=== PATIENT | male | born 1940 | race Caucasian/White ===

== ENCOUNTER → 2020-05-31 12:11 | Outpatient (CLI) | payer MEDICARE, BC, SELFPAY ==
--- NOTE | 2020-05-31 12:14 | DI.RAD.S_ITS ---
PROCEDURE: XR KUB INDICATIONS: gross hematuria TECHNIQUE: One view of the abdomen acquired. COMPARISON: Outside Facility, RG, XR ABDOMEN 2V, 05/24/2020, 15:59. Outside Facility, RG, CT ABDOMEN/PELVIS WITHOUT CONTRAST, 05/17/2020, 15:12. FINDINGS: Surgical changes and devices: Incidentally noted IVC filter. Bowel: Bowel gas pattern is normal. Visualized solid organ contours appear normal in size. Few sub 5 mm calcifications projecting in the region of the right kidney, in keeping with nephrolithiasis. There is also a 1.3 cm calcific density projecting at the level of the L5 vertebral body on the right, in keeping with left ureteral calculus, which appears inferiorly migrated since the prior study from 05/24/20. Bones: Severe spondylosis and facet arthropathy. Severe right hip joint degeneration. There is also severe left hip joint degeneration with chronic osseous deformity and heterotopic ossification. IMPRESSION: Interval inferior migration of right distal ureteral calculus as above, since 05/24/20. Dictated by: Emerson Gaona M.D. on 05/31/2020 at 13:22 Approved by: Emerson Gaona M.D. on 05/31/2020 at 13:47
== END ==
PROVIDERS: Family Provider Student in an Organized Health Care Education/Training Program; PCP Family Medicine; Referring Provider Specialist; Visit Provider Specialist
DX: R31.0 Gross hematuria (principal); N20.1 Calculus of ureter; N40.1 Benign prostatic hyperplasia with lower urinary tract symptoms; N13.8 Other obstructive and reflux uropathy
CPT/HCPCS: 52000; 74018; 99215

== ENCOUNTER 2020-06-16 09:38 | Day surgery (SDC) | payer MEDICARE, BC, SELFPAY ==
[2020-06-16] VITALS (19 sets, daily range): BP systolic 95–140; BP diastolic 54–91; PULSE 76–98; RESP 16–22; TEMP 36.5–37.6; O2SAT 83–98; BMI 30.4
--- NOTE | 2020-06-16 | DI.RAD.S_ITS ---
PROCEDURE: XR KUB INDICATIONS: Bilateral ureteral calculi TECHNIQUE: One view of the abdomen acquired. COMPARISON: Outside Facility, RG, CT ABDOMEN/PELVIS WITHOUT CONTRAST, 05/17/2020, 15:12. [facility], CR, XR KUB, 05/31/2020, 12:17. FINDINGS: Surgical changes and devices: IVC filter. Bowel: Bowel gas pattern is normal. Soft tissues: Suspect persistent ureteral calculi bilaterally. Right measuring 1.1 cm and left measuring 0.9 cm. Nonobstructing calculus in the right kidney measuring 0.4 cm. No suspicious abdominal calcifications. Visualized solid organ contours appear normal in size. Bones: No suspicious bony lesions. Severe bilateral hip DJD. IMPRESSION: 1. Suspect bilateral persistent ureteral calculi. -Consider repeat CT KUB. -Renal ultrasound could also be utilized to evaluate for persistent hydronephrosis. 2. Nonobstructive bowel gas pattern. 3. Severe bilateral hip DJD. Dictated by: Rocky Perry M.D. on 06/16/2020 at 12:25 Approved by: Rocky Perry M.D. on 06/16/2020 at 12:35
--- NOTE | 2020-06-16 | DI.RAD.S_ITS ---
PROCEDURE: XR ABDOMEN 1V INDICATIONS: cysto TECHNIQUE: One view of the abdomen acquired. COMPARISON: None. FINDINGS: Intraoperative fluoroscopic image of abdomen shows a right-sided ureteral stent. IMPRESSION: Fluoro guidance was provided intraoperatively for right-sided ureteral stent placement. Dictated by: Dino Tamayo M.D. on 06/16/2020 at 16:36 Approved by: Dino Tamayo M.D. on 06/16/2020 at 16:37
[2020-06-16] MEDS: LACTATED RINGERS 1,000 ML 42 ML IV ×2 (10:13→14:20)
--- NOTE | 2020-06-16 11:55 | PM.PREOP ---
Pre-operative Note Interval Note History & Physical reviewed/Exam performed by Physician: Yes Changes to H&P: No
--- NOTE | 2020-06-16 12:35 | SUR.OPER ---
Lithotomy on padded OR bed, head on pillow, arms secured on padded arm boards at <90 degrees abduction. Legs secured in padded yellow fins stirrups.
[2020-06-16] MEDS: CEFAZOLIN 2 GM/100 ML FROZ.PIGGY IV (12:59)
[2020-06-16] MEDS: IOPAMIDOL 15 ML VIAL INJ (13:44)
--- NOTE | 2020-06-16 15:06 | PM.OP.1 ---
Operative Date/Time/Diagnoses Date of procedure: 06/16/20 Time of procedure: 15:06 Pre-op diagnosis: 1. Bilateral, obstructing large ureteral calculi 2. Gross hematuria Post-op diagnosis: same Procedure & Clinicians Procedure: 1. Cystoscopy/left ureteral stone extraction 2. Cystoscopy/placement right ureteral stent (8 Martiniquais by 22-32). Same procedure as scheduled: No (See operative findings and report) Indications: 1. Bilateral obstructing large ureteral calculi. 2. Gross hematuria. Surgeon: John Perez Click Yes if Unassisted: Yes Anesthesia Type: General Operative Notes Findings: 1. Urethra-normal caliber without lesion or stricture. 2. External sphincter- coapted with normal overlying urothelium. 3. Caqmfsei-5-1.5 cm length with moderately obstructing lateral lobe hyperplasia and elevated median bar. 4. Bladder-2+ trabeculation. Normal ureteral orifices bilaterally. 5. Left whpgsj-xhws-nluux obstructing stone at the juncture of the proximal and middle 1/3. Proximal to the stone the ureter was extremely tortuous. During the effort to negotiate a guidewire beyond the calculus, the stone effectively was disrupted and the fragments pass once the high-grade obstruction was relieved. 6. Right dqssro-wska-lkzwt obstructing, large, UPJ calculus. Again the tortuosity of the ureter was present. Due to this the flexible ureteral scope could not be advanced over the wire due to the severity of radius of the tortuosity. Therefore a large ureteral stent was positioned to relieve obstruction and tortuosity since visual access to the calculus could not be achieved for laser lithotripsy. 7. Of note : Patient positioning was extremely limited due to inability to flex his left knee and hip. The situation was remedied by positioning the left lower extremity in a more less straight position due to extremely limited positioning lower extremity laterally and anteriorly. Closure Type: not applicable Applied: other (Eight Martiniquais by 22-32 cm multi-length ureteral stent.) Estimated Blood Loss (mL): 5 Blood products transfused: none Tourniquet time (min): 0 Procedure in detail: Patient was positioned supine and administered general anesthesia. He was then repositioned in semi lithotomy and the lower abdomen, genitalia, and groin were prepped and draped in sterile fashion. The 22 [place] panendoscope was then passed lower urinary tract with the findings as described above. A 0.35 hybrid guidewire was then advanced through the working port of the endoscope and advanced into the left upper collecting system under direct fluoroscopic guidance. The tip of the wire could not be advanced beyond the calculus and tortuosity proximally. Next, a 15 [place] by 6 cm balloon dilating catheter was advanced over the hybrid guidewire and across the left ureterovesical junction. The balloon was then inflated to 18 atmospheres for 5 minutes. The balloon was then deflated and backloaded off the wire. The semi rigid ureteral scope was then advanced in lower any tract and then into the left ureter and advanced proximally. In the vicinity just distal to the stone and high-grade tortuosity a 2nd hybrid guidewire was advanced through the semi-rigid ureteral scope and under direct visualization high persistently tried to find a pathway between the stone in the ureteral wall. Is evidence of not only high-grade obstruction but low longstanding obstruction with some mucosal growth over the cyst portion of the stone. Finally, the wire was successfully advanced proximally with a generous coil in intrarenal collecting system. At this juncture multiple fragments of stone were disrupted and readily passed distally with relief of the obstruction. Ureteral scope was then advanced into the left renal pelvis which was dilated and hyperemic. Upon careful withdrawal of the semi rigid ureteral scope under high flow rate all significant stone fragments were cleared from the left ureter. Intraoperative decision to not place a stent was made at that time. Original operative plan was to laser the stone. But, with the described events above, there was no need for laser lithotripsy. Next a 0.35 hybrid guidewire was advanced through the panendoscope into the right collecting system and advanced proximally. Only with extreme difficulty and a great deal of persistence and patience was I able to get the wire beyond the stone and the tortuosity of the ureter and create generous coil within the intrarenal collecting system. The 15 [place]iquais balloon dilating catheter was then advanced over the wire and positioned across the right ureteral vesicle junction and again the balloon was inflated to 18 atmospheres and held for 5 minutes. The balloon was then deflated and the balloon dilator was backloaded off the wire. Next, a dual lumen ureteral access sheath with his answered over this wire. Through the accessory port a 2nd hybrid guidewire was advanced through. Again, great patience and persistence was required, but the wire could only be advanced a short distance proximal to the index stone and again with a tight radius tortuosity of the ureter. At this point the dual-lumen ureteral access sheath with backloaded off both wires. The 1st wire was secured to the drape. Over the 2nd wire the flexible ureteral scope was advanced under direct and fluoroscopic guidance up to the level of the tortuous segment adjacent to the calculus. However, the radius of the ureteral course did not allow advancement of the flexible ureteral scope any further. The stone could not be visualized although fluoroscopically were in close distal proximity. Decision was made at that time to position a large caliber stent in the system to relieve obstruction, decompress the proximal ureter, and straight in the ureteral course. The flexible ureteral scope was then removed with the associated guidewire. Next, the original hybrid wire was backloaded into the panendoscope and the panendoscope was then advanced in the lower urinary tract. Under direct and fluoroscopic guidance an 8 [place] by 22-32 cm multi-length stent was advanced with great difficulty over the wire and eventually beyond the stone. The radiographic course of the stent indicated straightening of the ureteral course. NO RETRIEVAL LINE WAS LEFT ATTACHED. The bladder was then drained completely and all instrumentation was removed. The patient was then repositioned supine, awakened, and transferred to [facility] for transport to PACU. Complications: none Post-operative Condition: stable Disposition: PACU Plan for aftercare: Discharge home
[2020-06-16] MEDS: ALBUTEROL 2.5 MG/3 ML NEB (ADULT) INH ×2 (16:03→16:08)
[2020-06-29 10:19] LABS: Stone Analysis Source URETER
[2020-06-29 10:20] LABS: Size TOO SMALL TO MEASURE
== END 2020-06-16 17:05 | disposition home or self-care (01) ==
PROVIDERS: Family Provider Student in an Organized Health Care Education/Training Program; PCP Family Medicine; Referring Provider Specialist; Visit Provider Specialist
PROC: (CPT 52332; principal; 2020-06-16 10:30)
DX: N20.1 Calculus of ureter (principal); R31.0 Gross hematuria; N40.1 Benign prostatic hyperplasia with lower urinary tract symptoms; I50.9 Heart failure, unspecified; I51.9 Heart disease, unspecified; I25.2 Old myocardial infarction; E78.00 Pure hypercholesterolemia, unspecified
CPT/HCPCS: 52332; 52345; 74018; 76000; 82365; J0690; J1100; J2405; J2704; J3010; J7613

== ENCOUNTER → 2021-07-17 10:44 | Outpatient (CLI) | payer MEDICARE, BC, SELFPAY ==
--- NOTE | 2021-07-17 10:47 | DI.RAD.S_ITS ---
PROCEDURE: XR KUB INDICATIONS: stone TECHNIQUE: One view of the abdomen acquired. COMPARISON: [facility], RG, CT ABDOMEN/PELVIS WITHOUT CONTRAST, 03/05/2021, 13:33. [facility], RG, XR ABDOMEN 1V, 07/13/2021, 14:11. [facility], CR, XR KUB, 06/16/2020, 11:55. FINDINGS: Surgical changes and devices: Right Double-J ureteral stent is redemonstrated. Bowel: Bowel gas pattern is normal. Soft tissues: A 1.8 cm radiopacity is projected over the right upper quadrant which may represent a nonobstructing renal calculus. A subtle 6 mm radiopacity is present adjacent to the distal right ureteral stent which may represent a distal ureteral calculus. No other suspicious soft tissue calcifications. 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 IMPRESSION: 1. Questionable distal right ureterolithiasis and nonobstructing right nephrolithiasis. Dictated by: Claire Kohler M.D. on 07/17/2021 at 11:15 Approved by: Claire Kohler M.D. on 07/17/2021 at 11:18
== END ==
PROVIDERS: Family Provider Student in an Organized Health Care Education/Training Program; PCP Family Medicine; Referring Provider Specialist; Visit Provider Specialist
DX: N20.2 Calculus of kidney with calculus of ureter (principal); N23 Unspecified renal colic; R30.0 Dysuria; Z20.822 Contact with and (suspected) exposure to COVID-19; Z96.0 Presence of urogenital implants
CPT/HCPCS: 74018; 81001; 87077; 87086; 87186; 87635; 99215

== ENCOUNTER → 2021-07-17 12:18 | Outpatient (CLI) | payer MEDICARE, BC, SELFPAY ==
[2021-07-17 13:13] LABS: COVID19 -Nasal RAPID Negative (Negative)
[2021-07-17 13:13] LABS: Appearance Urine UA CLOUDY; Bilirubin Urine UA NEGATIVE (NEGATIVE); Color Urine UA BROWN; Glucose Urine UA TRACE g/dL (Negative); Ketones Urine UA TRACE (NEGATIVE); Leukocyte Esterase Urine UA 2+ (NEGATIVE); Nitrite Urine UA NEGATIVE (Negative); Occult Blood Urine UA 3+ (Negative); Protein Urine UA 3+ (Negative); Specific Gravity Urine UA 1.025 (1.000-1.035); Urobilinogen Urine UA 0.2 E.U./dL (0.2); pH Urine UA 5.5 (4.5-8.0)
[2021-07-17 13:18] LABS: Bacteria Urine Occasional (0-1); Culture Indicated Urine Specimen Cultured; RBC Urine 10-30/HPF (0-5/HPF); WBC Urine 5-10/HPF (0-5/HPF)
== END ==
PROVIDERS: Family Provider Student in an Organized Health Care Education/Training Program; PCP Family Medicine; Visit Provider Specialist
DX: R30.0 Dysuria (principal); Z20.822 Contact with and (suspected) exposure to COVID-19
CPT/HCPCS: 81001; 87086; 87635

== ENCOUNTER 2021-07-20 07:45 | Day surgery (SDC) | payer MEDICARE, BC, SELFPAY ==
[2021-07-20] VITALS (10 sets, daily range): BP systolic 105–133; BP diastolic 57–88; PULSE 75–112; RESP 12–20; TEMP 36.3–36.8; O2SAT 93–97; BMI 29.5
--- NOTE | 2021-07-20 | DI.RAD.S_ITS ---
PROCEDURE: XR KUB INDICATIONS: Left ureteral calculi TECHNIQUE: One view of the abdomen acquired. COMPARISON: [facility], RG, CT ABDOMEN/PELVIS WITHOUT CONTRAST, 07/09/2021, 15:08. [facility], CR, XR KUB, 07/17/2021, 10:51. FINDINGS: Surgical changes and devices: A right ureteral stent is seen in stable position. An IVC filter is noted. Sternotomy wires are partially imaged. Bowel: Bowel gas pattern is normal. Soft tissues: 18 mm calcification again seen projecting over the right kidney in stable position. Previously seen possible distal ureteral calculus is not redemonstrated. Visualized solid organ contours appear normal in size. Bones: No suspicious bony lesions. Multilevel degenerative changes in the spine. Severe left hip degenerative changes are partially imaged. IMPRESSION: Stable right ureteral stent. Stable right renal calculus. No definite ureteral calculus seen. Dictated by: Awais Neff M.D. on 07/20/2021 at 9:16 Approved by: Awais Neff M.D. on 07/20/2021 at 9:19
--- NOTE | 2021-07-20 08:36 | PM.PREOP ---
Pre-operative Note COVID-19 Criteria for continued procedure: Expected advancement of disease process, Possibility delay results in more complex future surgery or treatment, Increased loss of function, Continuing or worsening of significant or severe pain, Deterioration of the patient's condition or overall health, Delay expected to result in less-positive ultimate med/surg outcome and Non-surgical alternatives not available or appropriate per current SOC Interval Note History & Physical reviewed/Exam performed by Physician: Yes Changes to H&P: No
[2021-07-20] MEDS: LACTATED RINGERS 1,000 ML 42 ML IV (08:41)
--- NOTE | 2021-07-20 09:08 | SUR.PREOP ---
Pt sister Stefania reports that patient had diarrhea last night. She tried to clean him up but didn't have time to give him shower. Luana care done. Scant amt of stool. Small amt of redness between the butt cheeks. Barrier cream obtained and Emma Vigil in OR will apply after surgery. teaching done with sister on preventing skin break down.
[2021-07-20] MEDS: CEFAZOLIN 2 GM/20 ML SYRINGE IV (09:15)
--- NOTE | 2021-07-20 09:48 | SUR.OPER ---
Lithotomy on padded OR bed, head on pillow, arms secured on padded arm boards at <90 degrees abduction. Legs secured in padded yellow fins stirrups. Gel pads placed under bilateral wrists.
[2021-07-20] MEDS: IOPAMIDOL 50 ML VIAL INJ (10:00)
--- NOTE | 2021-07-20 10:50 | P.OP_ITS ---
Operative Date/Time/Diagnoses Date of procedure: 07/20/21 Time of procedure: 10:50 Pre-op diagnosis: 1. Retained right ureteral stent. 2. Right renal calculus. 3. Obstructing mid left ureteral calculus. 4. Intractable left renal colic. Procedure & Clinicians Procedure: 1. Cystoscopy/bilateral retrograde pyelogram. 2. Cystoscopy/placement left ureteral stent (8 [place] by 22-32 cm multi-length). 3. Cystoscopy/placement right ureteral stent (6 [place] by 22-32 cm multi- length). 4. Cystoscopy/failed attempts to remove retained right ureteral stent. Same procedure as scheduled: No (Retained right ureteral stent could not be removed due to encrustation. ) Indications: 1. Retained right ureteral stent. 2. Right renal calculus. 3. Obstructing mid left ureteral calculus. 4. Intractable left renal colic. Surgeon: John Perez Click Yes if Unassisted: Yes Anesthesia Type: General Operative Notes Findings: 1. Urethra-normal caliber without annular stricture or lesion. 2. External sphincter-coapted with normal overlying urothelium. 3. Prostate-4+ cm length with moderate lateral lobe hyperplasia. 4. Bladder-encrusted appropriately positioned, right ureteral stent. Normal appearing left ureteral orifice. Following negotiation of the high-grade obstructing mid left ureteral calculus, and obstructive, hemorrhagic efflux was seen effluxing from the left ureteral orifice. 5. The retained and encrusted right ureteral orifice could not be successfully removed from the collecting system. The proximal coil would not straighten at the contour of the right ureteral pelvic junction to remove safely. See saved intraoperative imaging. Closure Type: not applicable Specimen(s): none sent Applied: other (1. Six [place] by 22-32 cm multi length right ureteral stent. 2. 8 [place] by 22-32 cm left multi-length stent. ) Estimated Blood Loss (mL): 0 Blood products transfused: none Procedure in detail: Patient was positioned supine was administered general anesthesia. He was then repositioned semi lithotomy and the lower abdomen, genitalia, and groin were then prepped and draped in sterile fashion. The 22 [place] Leonean panendoscope was then passed lower urinary tract with the findings as described above. A 0.35 hybrid guidewire was advanced through the panendoscope advanced left collecting system under direct and fluoroscopic guidance. The wire would not pass easily beyond the high-grade obstructing left mid ureteral calculus. A 5 [place] Leonean pollock catheter was then advanced over the hybrid guidewire to the level of the calculus a guidewire was clear of the 5 [place]an pollock catheter. A retrograde pyelogram then performed with findings of a proximal dilated and torturous ureteral course with sharp right angle deflections immediately and then straining itself in less tortuous but more dilated proximally. A 0.35 angle tip Glidewire, eventually the wire was negotiated proximal to the calculus and advanced into the collecting system successfully. The open-ended catheter was then advanced over the wire under direct fluoroscopic guidance. Movement, or passage by the calculus was ?sounded? by the digital pre press operator. Imaging demonstrated straightened course of the ureter. The 5 [place] open-ended catheter was then backloaded off the GL UDAY wire next, an 8 [place] by 22-32 cm multilink stent was selected and advanced over the Glidewire under direct and fluoroscopic guidance. It was successfully positioned in the left collecting system. NO RETRIEVAL LINE WAS LEFT ATTACHED. Next, the flexible foreign body grasper was passed through the 22 [place] panendoscope and the distal end of the right retained ureteral stent was engaged in then withdrawn under fluoroscopic guidance. One of the proximal coils straightened readily as the stent was withdrawn distally. However the proximal most coil remained coiled and would not straighten readily to allow safe removal of the retained right ureteral stent. A 0.35 hybrid was then advanced through the panendoscope and then passed alongside the encrusted right ureteral stent and then was advanced proximally under direct and fluoroscopic guidance with significant difficulty. Again, a 5 [place] Leone[place] open-ended catheter was required for successful positioning the wire within the right collecting system. It should be mentioned, when advancing the hays endoscope proximally into the lower urinary tract on this occasion she encrusted right ureteral stent that had been kym sing the external sphincter was pushed back redundantly into the bladder proper. Now, a 6 [place] by 22-32 cm multi length stent was selected. This was then advanced over the hybrid guidewire under direct and fluoroscopic guidance and was positioned satisfactorily in the right collecting system. Reference intraoperative fluoroscopic images were retained. The bladder was then drained and all instrumentation was removed. The patient was then repositioned in supine, was awakened, and then was transferred to a gurney and then transported to recovery room. Complications: none Post-operative Condition: stable Disposition: PACU Plan for aftercare: Discharge home.
[2021-07-20 11:09] LABS: Appearance Urine UA CLOUDY; Bilirubin Urine UA NEGATIVE (NEGATIVE); Color Urine UA ORANGE; Glucose Urine UA NEGATIVE (Negative); Ketones Urine UA NEGATIVE (NEGATIVE); Leukocyte Esterase Urine UA 2+ (NEGATIVE); Nitrite Urine UA NEGATIVE (Negative); Occult Blood Urine UA 3+ (Negative); Protein Urine UA 2+ (Negative); Urobilinogen Urine UA 0.2 E.U./dL (0.2); pH Urine UA 5.5 (4.5-8.0)
[2021-07-20 11:45] LABS: RBC Urine >100/HPF (0-5/HPF); WBC Urine 10-30/HPF (0-5/HPF)
[2021-07-20 11:46] LABS: Bacteria Urine Many (>30); Calcium Oxalate Crystals Urine Few; Culture Indicated Urine Specimen Cultured
[2021-07-20] MEDS: SODIUM CHLORIDE 0.9% IV (12:04)
[2021-07-20] MEDS: GENTAMICIN IV (12:04)
[2021-07-20] MEDS: ACETAMINOPHEN 325 MG TABLET 650 MG PO (12:12)
--- NOTE | 2021-07-20 12:38 | SUR.PHASEII ---
Gentamycin infusing without difficulty. Patient states that he needs to void. Small amount of blood noted at meatus. Urinal provided. Unable to void at this time. Bladder scan results 188.
--- NOTE | 2021-07-20 13:49 | SUR.PHASEII ---
Dr Perez notified of blood clots and gerry hematuria. Post void residual 182. Dr Perez states patient may be discharged home. at bedside and supportive.
--- NOTE | 2021-07-20 15:38 | SUR.PHASEII ---
Sent patient home with sister and family member in stable condition. Dry brief in place, denies any pain, no hematuria noted at this time.
== END 2021-07-20 15:39 | disposition home or self-care (01) ==
PROVIDERS: Family Provider Student in an Organized Health Care Education/Training Program; PCP Family Medicine; Referring Provider Specialist; Visit Provider Specialist
PROC: (CPT 52332; principal; 2021-07-20 09:00)
DX: N20.2 Calculus of kidney with calculus of ureter (principal); T83.89XA Other specified complication of genitourinary prosthetic devices, implants and grafts, initial encounter; N40.1 Benign prostatic hyperplasia with lower urinary tract symptoms; N13.9 Obstructive and reflux uropathy, unspecified; I50.9 Heart failure, unspecified; I25.10 Atherosclerotic heart disease of native coronary artery without angina pectoris; E78.5 Hyperlipidemia, unspecified; Z95.5 Presence of coronary angioplasty implant and graft; Z87.891 Personal history of nicotine dependence
CPT/HCPCS: 52332; 74018; 76000; 81001; 82962; 87086; J0690; J1100; J2405; J2704; J3010

== ENCOUNTER 2021-08-28 10:00 | Observation (INO) | payer MEDICARE, BC, SELFPAY ==
[2021-08-27] VITALS (17 sets, daily range): BP systolic 93–121; BP diastolic 47–81; PULSE 7–108; RESP 8–19; TEMP 35.7–36.9; O2SAT 97–99; BMI 29.5
--- NOTE | 2021-08-27 | DI.RAD.S_ITS ---
PROCEDURE: XR KUB INDICATIONS: Right nephrolithiasis TECHNIQUE: One view of the abdomen acquired. COMPARISON: [facility], RG, CT ABDOMEN/PELVIS WITHOUT CONTRAST, 08/10/2021, 15:14. [facility], CR, XR KUB, 07/20/2021, 7:38. FINDINGS: Surgical changes and devices: Bilateral ureteral stents. Second right ureteral stent has been placed in the interval since prior exams. Stones projecting over the lower poles of the renal shadows bilaterally unchanged compared to prior exams. Bowel: Bowel gas pattern is normal. Soft tissues: No suspicious abdominal calcifications. Visualized solid organ contours appear normal in size. Bones: No suspicious bony lesions. IMPRESSION: Bilateral renal stones. Bilateral ureteral stents . Dictated by: Antoinette Preciado MD, PhD on 08/27/2021 at 11:22 Approved by: Antoinette Preciado MD, PhD on 08/27/2021 at 11:23
[2021-08-27] MEDS: LACTATED RINGERS 1,000 ML 42 ML IV ×2 (08:34→14:43)
--- NOTE | 2021-08-27 09:06 | P.OP.PRE_ITS ---
Pre-operative Note COVID-19 Criteria for continued procedure: Expected advancement of disease process, Possibility delay results in more complex future surgery or treatment, Increased loss of function, Deterioration of the patient's condition or overall health, Delay expected to result in less-positive ultimate med/surg outcome and Non- surgical alternatives not available or appropriate per current SOC Interval Note History & Physical reviewed/Exam performed by Physician: Yes Changes to H&P: Yes H&P completed within 30 days and has changed as indicated here:: 1. I explained rationale and recommendation to leave left ureteral stent indwelling today. Goal of today's interventional will be to treat the encrustations and calcifications of the long overdue indwelling right ureteral stent with removal.
[2021-08-27] MEDS: CEFAZOLIN 2 GM/20 ML SYRINGE IV (09:41)
[2021-08-27] MEDS: ACETAMINOPHEN IV 1,000 MG/100 ML VIAL 400 MG IV (10:39)
--- NOTE | 2021-08-27 10:45 | SUR.OPER ---
Patient in semi-lithotomy on ESWL bed and stirrup attachments. Bilateral arms tucked at side with blanket, gel pads placed under bilateral arms. Pillow to support head.
--- NOTE | 2021-08-27 12:00 | SUR.OPER ---
Patient repositioning performed several times to perform ESWL. Additional staff called into room upon each reposition. Proper padding in place to lower legs in stirrups and secured into place. Arms remain tucked at sides with gel padding to each arm and rolled towel placed into hands.
[2021-08-27] MEDS: BELLADONNA/OPIUM SUPPOSITORIES 1 EACH PR (12:23)
--- NOTE | 2021-08-27 13:08 | PM.OP.1 ---
Operative Date/Time/Diagnoses Date of procedure: 08/27/21 Time of procedure: 12:40 Pre-op diagnosis: 1. Encrusted retained right ureteral stent. 2. Bilateral nephrolithiasis. 3. Bilateral ureteral stents. Post-op diagnosis: same Procedure & Clinicians Procedure: 1. Right extracorporeal shockwave lithotripsy of encrusted right ureteral stent from right ureteropelvic junction to right ureterovesical junction (4000 shocks times maximal power level 8.0). 2. Cystoscopy/attempted right ureteral stent removal (complicated. Code modifier for length the procedure greater than 50% of expected should apply). Same procedure as scheduled: No Indications: Failure to remove encrusted and retained right ureteral stent. Surgeon: John Perez Click Yes if Unassisted: Yes Operative Notes Findings: 1. Urethra-single wide caliber mid bulbar urethral stricture, otherwise no annular stricture or lesion. 2. External sphincter coapted with normal overlying urothelium. 3. Prostate-4+ cm length with elevated median bar. Bladder-1 to 2+ trabeculation. Mild erythema and edema surrounding both ureteral orifices a association with intact retained ureteral stents. Closure Type: not applicable Specimen(s): none sent Applied: catheter (Twenty Dominican Curyung tip catheter.) Estimated Blood Loss (mL): 5 Blood products transfused: none Procedure in detail: Patient was positioned supine was administered general anesthesia. He was then repositioned in semi lithotomy on the lithotripsy treatment table and the lower abdomen, genitalia, and groin were then prepped and draped in sterile fashion. The 22 Dominican pannus closes passed the lower urinary tract with the findings as described above. A rat-tooth grasper was then used to reposition the left ureteral stent slightly distally based on preoperative CT imaging. Next, the long-term, encrusted right ureteral stent was engaged in the red tip grasper was withdrawn until resistance was met. The stent was then released. Next a and trapped ureteral stent loop was selected and this was positioned over the distal loop of the index stent. The hope was that this would allow periodic recheck of ureteral stent mobility versus continued retention by applying gentle traction through the treatment course. At the completion of lithotripsy again attempt was made withdrawal the stent which was unsuccessful due to undue resistance. Now the entrapped loop was widened and unfortunately could not be manipulated to get it off the ureteral stent coil. Endoscopic sue were then employed and attempt to cut the entrapped wire loop, which was unsuccessful. The endoscopic sue were then used to attempt to transect the ureteral stent adjacent to the and trapped loop. This was also unsuccessful. Decision was made at that time to abort the procedure. A 5 Dominican pollock catheter was advanced over the and trapped loop following removal of the device handle a 20 Dominican Curyung tip catheter was then selected and the Stratford catheter with and trapped wire within it passed to the through the lumen of the Curyung tip catheter sweats to internalize the system. Curyung tip catheter was then advanced in the bladder. The balloon was inflated 10 cc and placed to gravity drainage. Patient was then awakened, transferred to [facility], then transfer recovery in stable condition. Complications: none Post-operative Condition: stable Disposition: PACU Plan for aftercare: 1. Discharge home. 2. Referral [facility] for percutaneous extraction encrusted and retained right ureteral stent.
--- NOTE | 2021-08-27 13:19 | SUR.PHASEI ---
Pt stable, to go home with Ratliff in place. Sister called to come in to have education at bedside in OPD for ratliff care. Penis and groin with reddened skin, very thin and friable. Right buttock with hickey type site from lithotrypsy- Dr Perez aware. Ratliff draining pink tinged urine- clear Pt adorable. A&Ox3, slightly hard of hearing, but answering questions appropriately. Drinking apple juice without incident.
--- NOTE | 2021-08-27 13:27 | SUR.PHASEII ---
Sister at bedside, Dr. Perez talking with them regarding outcome and recommendation for follow-up to [facility]
[2021-08-27] MEDS: OXYCODONE IR 5 MG TABLET PO (13:44)
--- NOTE | 2021-08-27 14:44 | SUR.PHASEII ---
~[address] Perez - the patient's sister states that she is not comfortable taking him home - that he is not like his normal self and that there are stairs for him to navigate into the home, that she thinks he is not capable of managing. She feels that he needs to stay overnight. Spoke with Dr. Perez. He will write admission orders.
--- NOTE | 2021-08-27 15:06 | SUR.PHASEII ---
Continue to wait for OBS orders to transfer patient to Acute Care.
--- NOTE | 2021-08-27 15:13 | SUR.PHASEII ---
Raymundoloida jaramillo on for shivering approx 1400. Patient much more comfortable, shivering has stopped.
--- NOTE | 2021-08-27 16:20 | SUR.PHASEII ---
1554 To room 223, transferred into the bed with multiple staff members. Clothing bag to the room, Red, weepy area on left upper arm where the BP cuff had been. Pt skin warm to touch, no diaphoresis. SCD's on, Katz patent, urine remains red without clots, string/wire visable in the tubine. No questions from the staff.
[2021-08-27] MEDS: LACTATED RINGERS 500 ML 25 ML IV (16:47)
--- NOTE | 2021-08-27 18:15 | P.HP_ITS ---
History of Present Illness History of Present Illness Chief complaint: [facility] Narrative: THIS IS A PLEASANTLY DEMENTED 81-YEAR-OLD MALE ADMITTED TO THE HOSPITAL FOR STENT REMOVAL. PATIENT IS UNABLE TO PROVIDE A RELIABLE HISTORY OR REVIEW OF SYSTEM DUE TO SIGNIFICANT DEMENTIA MOST OF THE HISTORY WAS TAKEN FROM SURGICAL NOTE WELL NURSING REPORT. PATIENT IS WITH HIS SISTER REPORTEDLY. HOWEVER THIS STORY IS THAT HE HAD A LEFT STENT PLACEMENT ON . DUE TO AND OBSTRUCTIVE KIDNEY STONE. THERE HAS BEEN NO COMPLICATIONS OBSERVED FROM THAT PROCEDURE HOWEVER IT WAS NOTED THAT PATIENT HAS ALSO HAD A STENT PLACED ON 06/16/2020. THIS WAS DONE ON THE RIGHT AGAIN FOR DIFFERENT KIDNEY STONE. UNFORTUNATELY PATIENT DID NOT HAVE ANY APPROPRIATE FOLLOW-UP. AND THE STENT HAD BEEN IN PLACE SINCE THEN PATIENT WAS BROUGHT BACK TO THE HOSPITAL TODAY AND THE SURGICAL TEAM ATTEMPTED TO REMOVE THE STENT. MULTIPLE MODALITIES WILL USE AND ALL ATTEMPTS HAVE FAILED SO FAR PATIENT HAS BEEN ADMITTED AND AT THE SURGICAL TEAM ATTEMPTING TO REACH OUT TO A TERTIARY FACILITY FOR TRANSFER PER THE SURGICAL TEAM, PATIENT WILL NEED A PERCUTANEOUS APPROACH TO REMOVE THE STENT ON THE RIGHT. HOSPITALIST HAS BEEN CALLED TO MANAGE PATIENT MEDICALLY WHILE ATTEMPTING TO TRANSFER. 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) Hypercholesterolemia Left ureteral calculus MRSA (methicillin resistant Staphylococcus aureus) Renal calculus, right Renal colic on left side Retained ureteral stent Surgical History (Updated 08/22/21 @ 14:34 by Sandi Kellogg RN) H/O circumcision H/O vasectomy History of cataract extraction History of coronary artery stent placement History of incision and drainage History of knee replacement (1996) History of knee replacement (1999) History of urologic surgery (06/16/20) Hx of CABG (2010) Hx of cystoscopy (07/20/21) Family & Social History Family History Mother Cancer Sister Cancer Father Coronary artery disease Social History: household members family Safety & Behavioral: Feels Safe in Current Yes Environment Been Physically Hurt or No Threatened By a Person Tobacco & Substance use: Tobacco type cigarettes Smoking Status Former smoker alcohol intake never alcohol intake frequency holiday/special occasion Substance Use Type does not use Meds Home Medications and Allergies Home Medications Medication Instructions Recorded Confirmed Type aspirin 81 mg chewable tablet 81 mg PO DAILY 03/16/20 08/27/21 History atorvastatin 20 mg tablet (Lipitor) 20 mg PO DAILY 03/16/20 08/27/21 History calcium carbonate 500 mg-vitamin 1 tab PO DAILY 03/16/20 08/27/21 History D3 15 mcg (600 unit) tablet donepezil 10 mg tablet 10 mg PO QPM 03/16/20 08/27/21 History fluticasone propionate 230 2 puff INHALATION BID PRN 03/16/20 08/27/21 History mcg-salmeterol 21 mcg/actuation HFA inhaler (Advair HFA) multivitamin (Daily Multi-Vitamin) 1 tab PO DAILY 03/16/20 08/27/21 History tamsulosin 0.4 mg capsule (Flomax) 0.8 mg PO BEDTIME 03/16/20 08/27/21 History metoprolol tartrate 50 mg tablet 12.5 mg PO BID 06/16/20 08/27/21 History oxycodone 5 mg tablet 5 mg PO Q4H PRN #10 tab 08/27/21 Rx Allergies Allergy/AdvReac Type Severity Reaction Status Date / Time lisinopril AdvReac Mild Light-heade Verified 08/27/21 08:18 d/Dizzy shellfish derived AdvReac Mild Nausea & Verified 08/27/21 08:18 Sweat Review of Systems Review of Systems Narrative: UNABLE TO OBTAIN DUE TO MENTATION Exam Vital Signs (past 8 hours): - 08/27/21 12:40 08/27/21 12:45 08/27/21 12:50 Temperature 96.2 F L Pulse Rate 66 67 108 H Respiratory Rate 8 L 8 L 8 L Blood Pressure 109/51 L 111/65 103/68 Pulse Oximetry 97 97 97 08/27/21 12:55 08/27/21 13:05 08/27/21 13:16 Temperature Pulse Rate 80 7 L 81 Respiratory Rate 12 15 16 Blood Pressure 104/68 104/49 L 116/47 L Pulse Oximetry 97 97 98 08/27/21 13:17 08/27/21 14:00 08/27/21 15:01 Temperature 96.5 F L 96.5 F L 96.4 F L Pulse Rate 69 65 60 Respiratory Rate 15 16 16 Blood Pressure 109/52 L 105/63 93/49 L Pulse Oximetry 97 98 97 08/27/21 15:43 08/27/21 16:05 08/27/21 16:41 Temperature 98.5 F 96.9 F L 97.6 F Pulse Rate 73 84 66 Respiratory Rate 16 14 14 Blood Pressure 95/60 109/81 105/55 L Pulse Oximetry 97 98 99 08/27/21 17:16 Temperature 96.9 F L Pulse Rate 75 Respiratory Rate 14 Blood Pressure 111/60 Pulse Oximetry 97 Oxygen Delivery Method Room Air Oxygen Flow Rate 0 Narrative Exam Narrative: NO ACUTE DISTRESS. PLEASANTLY DEMENTED VITAL SIGNS STABLE HEAD ATRAUMATIC NORMOCEPHALIC NECK : SUPPLE WITHOUT ADENOPATHY NO CAROTID BRUITS . NO LAD EYE: EOMI, PERRLA, NORMAL CONJUNCTIVA; NO JAUNDICE CHEST: REGULAR RATE. NO RUBS. PMI IS NON DISPLACED. NO MURMURS; NORMAL S1- S2 PULMONARY: MILD BIBASILAR CRACKLES NOTED; NO INCREASED DULLNESS TO PERCUSSION. NO WHEEZING. ABDOMEN: SOFT. NONTENDER. NONDISTENDED. BOWEL SOUNDS ARE PRESENT IN ALL [address] MONTO[address] CAT[address] PL[address] EXTREMITIES: 2+ POLYSOMNOGRAPHER BLE EDEMA.. NO CYANOSIS CLUBBING NOTED. NEURO: CRANIAL NERVES 2-12 GROSSLY INTACT. NO FOCAL NEUROLOGICAL DEFICIT NOTED. MSK: NORMAL RANGE OF MOTION FOR AGE. NO JOINT EFFUSION. SKIN: AGE ASSOCIATED POOR SKIN TURGOR; NO ECCHYMOSIS. NO LESION. GOOD TURGOR.; NO RASHES : NORMAL EXTERNAL GENITALIA. MONTOYA CATHETER IN PLACE. HEMATURIA PRECEDED PSYCH : CALM. COOPERATIVE. Assessment & Plan Assessment & Plan narrative: IMPRESSION STATUS POST FAILED RIGHT URETERAL STENT REMOVAL STATUS POST RECENT LEFT URETERAL STENT HEMATURIA. 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 NOT SURE OF BASELINE MENTATION BPH PER HISTORY CHRONIC SYSTOLIC HEART FAILURE FOR HISTORY. NO SIGN OF ACUTE DECOMPENSATION AGE ASSOCIATED PHYSICAL DECONDITIONING/DEBILITY PLAN MONITOR PATIENT CLOSELY PATIENT HAS A HISTORY OF CHRONIC SYSTOLIC HEART FAILURE, WILL DISCONTINUE ALL IV FLUID FOR NOW STARTED ON THE DIET. ADVANCE TOLERATED DEFER ANTIBIOTICS IF NEEDED TO THE SURGICAL TEAM MONITOR INPUT AND OUTPUT CLOSELY REPEAT LABS IN THE MORNING WILL ALSO ORDER INCENTIVE SPIROMETER FOR PATIENT TO USE WHILE AWAKE. PATIENT S NURSE TO PROVIDE INSTRUCTION IN REGARD TO PROPER USE OF THE DEVICE IF POSSIBLE MAINTAIN STRICT FALL AND ASPIRATION PRECAUTIONS PT AND OT TO ASSESS IN THE MORNING NURSING TO KEEP LYTES IN THE ROOM ON AT ALL TIMES TO DECREASE THE RISK OF OWNING REORIENT PATIENT WHEN POSSIBLE NURSING TO MONITOR SKIN CLOSELY WELL DURING EACH ASSESSMENT CONTINUE HOME MEDS DICTATED ADDITIONAL MANAGEMENT PER CLINICAL COURSE DURATION OF STAY PER CLINICAL COURSE Time Spent With Patient Critical Care time: I spent a total of [] minutes of critical care time on this patient's care today; this time is exclusive of procedural time. Quality VTE Deep Vein Thrombosis/Pulmonary Embolism Present on Admission: No
[2021-08-27] MEDS: METOPROLOL IR 50 MG TABLET 12.5 MG PO (21:15)
[2021-08-27] MEDS: TAMSULOSIN 0.4 MG CAPSULE 0.8 MG PO (21:15)
--- NOTE | 2021-08-27 23:26 | PC.NURSE ---
Patient oriented except identified month as June and year as 1966. Breath sounds CTA with RA sat of 99%; on continuous oximetry. HRR. Denied nausea. BT present but denies flatus as yet. Indwelling catheter is patent; hematuria but no clots noted. Also has some bleeding from urinary meatus. Is able to move himself in bed. Gait not assessed. 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 Wearing bilateral calf SCD's. Denied pain. Fall risk score is high and bed alarm is activated.
[2021-08-28] VITALS (8 sets, daily range): BP systolic 100–120; BP diastolic 57–66; PULSE 80–104; RESP 16–19; TEMP 35.7–37; O2SAT 94–104
[2021-08-28 00:24] LABS: COVID19 - ADMIT (NP swab/PCR) Negative (Negative)
[2021-08-28 05:11] LABS: Add Manual Diff / Slide Review NO; Basophils Absolute Auto 0 /uL (0-100); Basophils Percent Auto 0.5 % (0-2); Eosinophils Absolute Auto 100 /uL (0-450); Eosinophils Percent Auto 1.5 % (2-4); Hematocrit 34.5 % (41-53); Hemoglobin 11.7 g/dL (13.5-17.5); Lymphocytes Absolute Auto 1000 /uL (1100-4500); Lymphocytes Percent Auto 18.8 % (25-40); Mean Corpuscular HGB Conc 33.9 % (30-36); Mean Corpuscular Hemoglobin 31.5 PG (26-34); Mean Corpuscular Volume 92.8 fL (80-100); Monocytes Absolute Auto 500 /uL (0-900); Monocytes Percent Auto 8.9 % (3-14); Neutrophils Absolute Auto 3800 /uL (1500-7000); Neutrophils Percent Auto 70.3 % (50-75); Platelet Count 124 X10^3/uL (150-400); Red Blood Cell Count 3.72 X10^6/uL (4.5-5.9); Red Cell Distribution Width 13.7 % (11.6-14.8); White Blood Cell Count 5.4 X10^3/uL (4.5-11.0)
[2021-08-28 05:44] LABS: Alanine Aminotransferase 11 IU/L (<50); Albumin 3.1 g/dL (3.5-5.0); Albumin Globulin Ratio 1.2 (1.0-2.8); Alkaline Phosphatase 82 U/L (38-126); Aspartate Aminotransferase 29 IU/L (17-59); BUN Creatinine Ratio 17.6 (6-22); Blood Urea Nitrogen 15 mg/dL (9-20); Carbon Dioxide 27 mmol/L (22-32); Chloride 104 mmol/L (98-107); Estimated Glomerular Filt Rate > 60 mL/min (>60); Globulin 2.6 g/dL (1.7-4.1); Glucose 94 mg/dL (80-110); HEMOLYSIS < 15 (0-50); Magnesium 1.6 mg/dL (1.6-2.3); Phosphorous 3.6 mg/dL (2.3-3.7); Potassium 4.1 mmol/L (3.4-5.1); Sodium 136 mmol/L (137-145); Total Protein 5.7 g/dL (6.3-8.2)
[2021-08-28] MEDS: ATORVASTATIN 20 MG TABLET PO (09:10)
[2021-08-28] MEDS: METOPROLOL IR 50 MG TABLET 12.5 MG PO ×2 (09:10→22:18)
[2021-08-28] MEDS: CALCIUM CARB/VIT D3 500/200 TABLET 1 EACH PO (09:11)
[2021-08-28] MEDS: LACTATED RINGERS 500 ML 25 ML IV (09:11)
[2021-08-28] MEDS: MULTIVITAMIN 1 TABLET 1 TAB PO (09:11)
--- NOTE | 2021-08-28 11:45 | OT.IP.EVAL ---
Current Diagnoses Calculus of kidney (08/28/21) Presence of urogenital implants (08/28/21) Surgery Performed Operation Date: 08/27/21 09:45 Actual Procedures p Cystoscopy - John Perez MD p Extracorporeal Shock Wave Lithotripsy(Right) - John Perez MD Past Medical History (Last Updated 08/16/21 @ 12:54 by John Perez MD) Afib Alzheimer's disease Bilateral nephrolithiasis Bilateral ureteral calculi BPH w urinary obs/LUTS Chronic cough Congestive heart failure COPD (chronic obstructive pulmonary disease) Coronary heart disease Gross hematuria H/O circumcision H/O vasectomy Heart attack History of cataract extraction History of coronary artery stent placement History of incision and drainage History of knee replacement (1996) History of knee replacement (1999) History of migraine headaches 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) History of urologic surgery (06/16/20) Hx of CABG (2010) Hx of cystoscopy (07/20/21) Hypercholesterolemia Left ureteral calculus MRSA (methicillin resistant Staphylococcus aureus) Renal calculus, right Renal colic on left side Retained ureteral stent Surgical History (Last Updated 08/22/21 @ 14:34 by Sandi Kellogg RN) H/O circumcision H/O vasectomy History of cataract extraction History of coronary artery stent placement History of incision and drainage History of knee replacement (1996) History of knee replacement (1999) History of urologic surgery (06/16/20) Hx of CABG (2010) Hx of cystoscopy (07/20/21) Occupational Therapy Inpatient Evaluation/Re-Eval M1 PT/OT-IP Prior Functional Status Start: 08/28/21 12:54 Freq: NEEDED Status: Active Protocol: Document 08/28/21 12:54 [facility] (Rec: 08/28/21 13:22 [facility] [id number]) Medical Review Prior Functional Status Communication Pt has difficulty to communicate at times will say yes versus means no. Per medical chart states pt has Alzheimer's. Mobility and Gait Pt able to use FWW to walk around in the house on his own per his sister. Activities of Daily Living and IADL's Pt's sister having to assist pt for all needs for ADL's, pt able to self feed and do grooming after initial set-up. Prior Functional Level (Other details) Pt lives with his sister in [place]. Social History Household Members family Living Arrangements Apartment/Condo Number of Stairs To Enter/Railing? 4 steps with bilateral narrow rails Home Environment High Toilet,Walk in Shower Home Equipment Front Wheel Walker,Quad Cane, Straight Cane,Shower Seat with Backrest,Hand Held Shower, Environmental Officer,Sock Aid,Lift Recliner ,Bed Rails,Grab Bars Near Toilet,Grab Bars In Shower Additional Social History Comment left bed rail M2 OT-IP Current Condition Start: 08/28/21 12:54 Freq: Status: Active Protocol: Document 08/28/21 12:54 [facility] (Rec: 08/28/21 13:22 [facility] [id number]) Occupational Therapy Current Condition Current Condition Evaluation Date 08/28/21 Treatment Diagnosis s/p Failed rigth uretral stent removal, s/p recent left uretral stent Diagnosis Onset Date 08/27/21 M3 OT- IP Subjective and Pain Start: 08/28/21 12:54 Freq: Status: Active Protocol: Document 08/28/21 12:54 [facility] (Rec: 08/28/21 13:22 [facility] [id number]) OT- Subjective Occupational Therapy Visit Type Type Initial Evaluation Visit Start Time 11:06 Visit Stop Time 11:45 Total Visit Minutes 39 Notes Spoke to pt's nurse if okay to get pt up as having pads attached to ratliff area, nurse states that it will be secure and go ahead and get pt up. Pt 's sister present when getting pt up from bed. Nursing present to put new pads in as they fell out while pt got up. Occupational Therapy Visit Comments Patient Comments Pt agreed to get up. Patient/Caregiver Goals To go home. OT Pain Assessment Pain When Pain Assessed At Rest Pain Present Pain Present Denied Pain M4 OT- IP ADL's Start: 08/28/21 12:54 Freq: Status: Active Protocol: Document 08/28/21 12:54 [facility] (Rec: 08/28/21 13:22 [facility] [id number]) OT VRW-Ekot-Hmcdvct Comments OT Self-Feeding Comments Not at meal time. OT ADL-Grooming Comments OT Grooming Comments Not performed OT ADL-Oral Care Comments Oral Care Comments Not performed. OT ADL-Dressing General Eval Lower Body Dressing Ability Total Assistance Areas Needing Assistance Socks Pt's sister states pt not able to reach forwards and therefore assist pt for all dressing needs. In addition pt's sister states, I usually help him otherwise it takes too long for him to complete. OT ADL-Toileting General Evaluation Toileting Ability Total Assistance Comments OT Toileting Comments Ratliff in place. OT ADL-Bathing Comments OT Bathing Comments Not performed. M5 OT- IP IADL's Start: 08/28/21 12:54 Freq: Status: Active Protocol: Document 08/28/21 12:54 [facility] (Rec: 08/28/21 13:22 [facility] [id number]) OT-Instrumental Activities of Daily Living Deficits IADL Deficits Identified Deficits Home Safety Awareness Awareness of Need for Assistance at Home Decreased Awareness Ability to Problem Solve Emergency Unable to Problem Solve Situations Medication Management Medication Management Caregiver Administers Money Management Money Management Caregiver Provides Assistance Meal Preparation Meal Preparation Caregiver Provides Assist Marketing Traffic Manager Marketing Traffic Manager Caregiver Provides Assist M6 OT- IP Functional Cognition Start: 08/28/21 12:54 Freq: Status: Active Protocol: Document 08/28/21 12:54 [facility] (Rec: 08/28/21 13:22 [facility] [id number]) Cognitive Factors Limiting Selfcare Function Cognitive Ability Level of Alertness Alert,Confusional State Patient Orientation Name Attention Span Ability Capable of Focused Attention, Capable of Sustained Attention Ability to Follow Commands Able to Follow One Step Commands with Increased Time, Able to Follow One Step Commands with Repetition Cognitive Comments Cognitive Assessment Comments Pt able to follow concrete simple commands. Pt a bit impulsive, however cooperative . OT- Vision and Hearing OT- Hearing Assessment OT- Hearing Assessment WFL OT- Vision Assessment Visual Acuity Glasses For Reading Vision Assessment Comments pt not able to read the clock accurately M7 OT- IP Mobility and Balance Start: 08/28/21 12:54 Freq: Status: Active Protocol: Document 08/28/21 12:54 [facility] (Rec: 08/28/21 13:22 [facility] [id number]) OT- Bed Mobility Assessment Rolling Type of Rolling Roll to Left Level of Assistance Moderate Assistance Supine to Sit Supine to Sit Assist Moderate Assistance,1 Person Assistance Sit to Supine Sit to Supine Assist Maximum Assistance,1 Person Assistance Scooting Scooting to Edge of Bed Moderate Assistance,1 Person Assistance OT-Transfer Assessment Sit to and From Stand Sit to and from Stand Moderate Assistance,1 Person Assistance,2 Person Assistance Technique Transfer Destination Bed Transfer Technique Stand Step Pivot Devices Transfer Assistive Devices Gait Belt,Front Wheeled Walker Comments Mobility Comments MODA to help roll to the left and get upright with his trunk , pt tends to use momentum to assist with his mobility. MODA 1-2 to stand from high bed. MODA X1 to side step to the head of the bed and MAX AX 1 to get back into bed. Pt BP did not drop during mobility needs. OT- Gait Assessment Comments Gait Ability Comments Only able to stand at this time. 2 person assist if having to transfer at this time. OT- Balance Assessment Sitting Balance and Reactions Static Sitting Balance Ability Good Dynamic Sitting Balance Ability Fair Standing Balance and Reactions Static Standing Balance Ability Poor M8 OT- IP Objective Assessments Start: 08/28/21 12:54 Freq: Status: Active Protocol: Document 08/28/21 12:54 [facility] (Rec: 08/28/21 13:22 [facility] [id number]) OT Gross Range of Motion Upper Extremity Range of Motion Assessment Within Functional Limits OT Strength Upper Extremity Strength Assessment Within Functional Limits OT- Coordination Assessment Upper Extremity Finger to Nose Test Within Functional Limits OT-Muscle Tone Assessment Muscle Tone WNL Yes M9 OT- IP Assessment and Plan Start: 08/28/21 12:54 Freq: Status: Active Protocol: Document 08/28/21 12:54 [facility] (Rec: 08/28/21 13:22 [facility] [id number]) OT Summary Assessment and Plan Potential Rehabilitation Potential Fair Analytic Complexity at Evaluation Moderate Summary OT Impairments Balance,Functional Mobility, Toilet Transfers,Shower Transfers Progress Towards Goals Slow Progress due to Medical Issues,Slow Progress due to Activity Tolerance,Slow Progress due to Cognition Assessment Summary Pt MOD complexity and main barriers are decreased activity tolerance, ability to follow commands due to his Alzheimers, and now needing MOD-MAXA X1 for bed mobility and to help take a few side steps to the head of the bed with FWW. Pt will need two person assist to stand from lower surfaces. At this time pt is too great of care for his sister to take care of him and would benefit from possible SNF, however pt would be better off at home with home health due to his cognitive needs. Pending medical status and progress home with 28/10 assist versus SNF. Goals Self-Feeding Goal Standby Assistance Grooming Goal Standby Assistance Dressing Goal Moderate Assistance Toileting Goal Moderate Assistance Bathing Goal Moderate Assistance Toilet Transfer Goal Standby Assistance Shower Transfer Goal Contact Guard Assistance Days to Meet Goals 7 Frequency of Treatment Frequency Of Treatment Once a Day Treatment Plan OT Treatment Plan ADL Training,Functional Cognition Training,Functional Mobility,Patient/Family Education,Discharge Planning Other Treatment Recommendations and Next Transfer to [facility] with HARLEEN reid Treatment Focus Discharge Recommendations OT Discharge Recommendations Home with 28/10 Assist Available,Home Health,SNF Rehab,Home vs SNF Transportation Needs at Discharge Private Vehicle
--- NOTE | 2021-08-28 13:42 | CM.DANOTE ---
DCP/Assessment: Reviewed chart. Patient is a 81yr old male admitted to [facility] for elective stent removal with Dr. Perez. PCP listed is Sol Leroy. Per notes, stent placed awhile back and patient did not have appropriate f/u and now provider's having difficulty removing stent. It has been suggested that patient transfer to higher level of care. PROOF READER briefly met with patient this AM. Patient provides PROOF READER with very brief yes/no answers. Patient does report that he resides with his sister Stefania? PT/OT evaluations ordered to assist in determining d/c planning need if patient were to not transfer. P: CM team following, potential for transfer to higher level of care. MAHNAZ Benitez Discharge Planning/Care Management Advanced directive, confirm from FAMILY Start: 08/27/21 17:18 Freq: Q24H Status: Active Protocol: Document 08/27/21 17:18 CM (Rec: 08/27/21 17:19 CM [id number]) Advance Directive, confirm on record Time 17:19 Person contacted PT Copy received No Advanced directive available on record No CM Discharge Assessment Start: 08/28/21 13:37 Freq: Status: Active Protocol: Document 08/28/21 13:37 KJS (Rec: 08/28/21 13:42 KJS [id number]) Discharge Planning Assessment Assigned Mobile Unit Assistant MAHNAZ Benitez Contact Information Stefania Culver (sister) # [phone] Advance Directives? Yes Advance Directives on File No History Provided By Patient,Medical Record Prior Living Arrangements Apartment/Condo Household Members family Type of transporation used prior to Relies on Others admit Independent with ADL's No: Therapy evaluation pending Is patient alert and oriented? No: Dementia? Caregiver for Another No DME Already Rented / Owned Cane Comment Awaiting plan of care. Discharge Plan Home Transportation Arrangement Family? Review Status In Process Next Review Type Continued Stay Review Pre-Anesthesia Assessment Start: 08/22/21 14:27 Freq: Status: Complete Protocol: Document 08/22/21 14:27 CAB (Rec: 08/22/21 14:36 CAB [id number]) Pre-Anesthesia Assessment Preferred Name Marquez Patient Information Reviewed Via Chart Review Comment COVID screen not identified Primary Care Provider Josh Marie Seen Specialist in Last 12 Months Yes Specialist Seen Urologist Primary Language Tunisian Preferred Language Tunisian Comment Hx of Alzheimer's Hx Anesthesia Reactions No Hx Family Anesthesia Reaction No Hx Malignant Hyperthermia No Hx Blood Transfusions No Hx Blood Transfusion Reaction No Anesthesia Review Requested No Client Service Manager No alcohol intake current alcohol intake frequency holidays/special occasions only Smoking Status Former smoker how long ago did patient quit smoking 1983 Substance Use Type does not use Patient is completely paralyzed or No completely immobile Hx Sleep Apnea No CPAP/BIPAP use not prescribed Currently Taking a Beta Al Yes: Metoprolol Anti-Coagulant Therapy No Hx Pacemaker/ICD No Pacemaker Rep Required? No Hx Urinary Self Catheterization No Diabetes No Presence of External or Internal Medical Yes: Chapo TKA, cardiac stent, Devices ureteral stent, bilat eye IOLs Received a COVID vaccine? Yes Marital Status Single Lives With family Patient Discharge Plan Description Return Home Advance Directives? Yes Power of Production Posting Clerk Yes Power of Production Posting Clerk Name Mayda Culver - sister Power of Production Posting Clerk
--- NOTE | 2021-08-28 14:50 | PT.IIE ---
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) Hypercholesterolemia Left ureteral calculus MRSA (methicillin resistant Staphylococcus aureus) Renal calculus, right Renal colic on left side Retained ureteral stent Physical Therapy Inpatient Evaluation/Re-Eval M1 PT/OT-IP Prior Functional Status Start: 08/28/21 16:20 Freq: NEEDED Status: Active Protocol: Document 08/28/21 14:50 AB (Rec: 08/28/21 16:34 AB [id number]) Medical Review Prior Functional Status Medical History Reviewed Yes Communication able to make needs known but inconsistent with answering questions Mobility and Gait sister in room and provided information: stated that pt is able to do bed mobility, transfers and ambulation mod I using a FWW indoors; only able to walk outdoors from house to the car using SPC; pt 's sister has to use a w/c for mobility outdoors; sister assists pt with ADLs Activities of Daily Living and IADL's per OT's note: Pt's sister having to assist pt for all needs for ADL's, pt able to self feed and do grooming after initial set-up. Social History Household Members family Living Arrangements House Number of Floors (Floors) One Floor Number of Stairs To Enter/Railing? per sister: house is a manufactured home Home Environment Standard Height Toilet,Walk in Shower Home Equipment Front Wheel Walker,Raised Toilet Seat w/Armrests,Shower Seat with Backrest,Hand Held Shower,Grab Bars In Shower Additional Social History Comment pt's sister lives with him and assists him Has L side rail M2 PT-IP Current Condition Start: 08/28/21 16:20 Freq: NEEDED Status: Active Protocol: Document 08/28/21 14:50 AB (Rec: 08/28/21 16:34 AB [id number]) Physical Therapy Current Condition Current Condition Evaluation Date 08/28/21 Treatment Diagnosis s/p cystoscopy and lithotripsy ; difficulty in walking Onset Date 08/27/21 M3 PT-IP Subjective Start: 08/28/21 16:20 Freq: NEEDED Status: Active Protocol: Document 08/28/21 14:50 AB (Rec: 08/28/21 16:34 AB [id number]) Subjective Physical Therapy Visit Type Type Initial Evaluation Visit Start Time 14:50 Visit Stop Time 15:15 Total Visit Minutes 25 Number of CONSERVATION SCIENTIST Visits 0 Therapy Pain Assessment Pain Present Pain Present Denied Pain M4 PT-IP Mobility and Gait Start: 08/28/21 16:20 Freq: NEEDED Status: Active Protocol: Document 08/28/21 14:50 AB (Rec: 08/28/21 16:34 AB [id number]) PT-Bed Mobility Assessment Supine to Sit Supine to Sit Maximum Assistance,2 Person Assistance,Head of Bed Elevated Scooting Scooting to Edge of Bed Maximum Assistance PT-Transfer Assessment Sit to and From Stand Sit to and from Stand Maximum Assistance,2 Person Assistance,Use of Upper Extremities Equipment Transfer Assistive Device Gait Belt,Front Wheeled Walker Orthotic/Prosthetic Devices or Brace: No Transfers Transfer Destination Chair Transfer Technique Stand Step Pivot Transfer Ability Level of Assist Maximum Assistance,2 Person Assistance,Use of Upper Extremities Comments Mobility Comments completed supine to sit max A x 2 and max cues with HOB elevated. max A for scooting to EOB. completed sit to stand max A x 2 and max cues and step transfer to chair using FWW max A x 2. presents with antalgic step with increase lateral trunk leaning to the R. positioned pt on the chair. call light and table placed withinr each. informed NAC that pt needs a chair alarm. max cues withall tasks due to difficulty following directions BP: 107/56 in supine BP: 111/ 64 in sitting PT-Balance Assessment Sitting Balance and Reactions Static Sitting Balance Ability Good Dynamic Sitting Balance Ability Fair Standing Balance and Reactions Static Standing Balance Ability Poor Dynamic Standing Balance Ability Poor Device Used FWW M5 PT-IP Objective Assessments Start: 08/28/21 16:20 Freq: NEEDED Status: Active Protocol: Document 08/28/21 14:50 AB (Rec: 08/28/21 16:34 AB [id number]) Orientation Orientation/Cognition Level of Alertness Confusional State Orientation Name Language Function Ability Hard of Hearing Safety Awareness Decreased Safety Awareness Memory Description Short Term Impaired,Brim Pouncing Machine Operator Impaired Gross Range of Motion Lower Extremity ROM Assessment Within Functional Limits Strength Lower Extremity Strength Assessment Within Functional Limits Muscle Tone Muscle Tone WNL Yes M6 PT-IP Treatment Start: 08/28/21 16:20 Freq: NEEDED Status: Active Protocol: Document 08/28/21 14:50 AB (Rec: 08/28/21 16:34 AB [id number]) Physical Therapy Treatment Education Education Provided Safety M7 PT-IP Assessment and Plan Start: 08/28/21 16:20 Freq: NEEDED Status: Active Protocol: Document 08/28/21 14:50 AB (Rec: 08/28/21 16:34 AB [id number]) PT Summary Assessment and Plan Potential Rehabilitation Potential Good Status of Condition at Evaluation Evolving Summary Impairments Pain,ROM,Strength,Balance, Coordination,Sensation,Tone, Cognition,Bed Mobility, Transfers,Gait,Activity Tolerance Assessment Summary pt requiring max A x 2 and max cues using FWW and unable to tolerate much activity. unable to ambulate at this time. pt will require SNF rehab to improve overall strength and mobility. Goals Bed Mobility Goal Minimal Assistance Transfer Goal Minimal Assistance,Front Wheeled Walker Gait Goal Minimal Assistance,Front Wheel Walker Gait Distance 50 Other Goals improve bed mobility, transfers using FWW and ambulation ~ 100 ft CGA up/down 4 steps B rails CGA Days to Meet Goals 10 Frequency of Treatment Frequency Of Treatment Once a Day Treatment Plan Physical Therapy Treatment Plan Bed Mobility Training,Transfer Training,Gait Training, Therapeutic Exercise,Balance Retraining,Post Op Education, Discharge Planning,Hot or Cold Pack,Neuromuscular Re-ed, Coordination Retraining,Manual Therapy Precautions Other Precautions falls Recommendations To Nursing Amount of Assist Needed 2 Person Assist Discharge Recommendations PT Discharge Recommendations SNF Rehab Transportation Needs at Discharge Wheelchair/Cabulance
[2021-08-28] MEDS: DONEPEZIL 5 MG TABLET 10 MG PO (16:15)
--- NOTE | 2021-08-28 18:50 | PC.NURSE ---
Pt is AxOx2-3 but very forgetful and has aphasia. VSS, pt denied pain. Pt has good appetite and slept between care. Katz is draining dark, red urine and bloody discharge around penis area. No BM today. Bed alarm is on bc pt sometimes impulsive and tried to get OOB by himself. Otherwise, no problem identified.
--- NOTE | 2021-08-28 20:30 | P.PN_ITS ---
Subjective Subjective Date Patient Seen: 08/28/21 Interval history: 81-YEAR-OLD MALE IN THE HOSPITAL AFTER A FAILED MOVABLE OF A RIGHT URETERAL STENT BY UROLOGY PLAN TO TRANSFER TO TERTIARY FACILITY FOR ADDITIONAL MANAGEMENT TODAY NO SIGNIFICANT ISSUES REPORTED BY NURSING OVERNIGHT NO SPECIFIC COMPLAINTS Exam Vital Signs (past 8 hours): - 08/28/21 13:56 08/28/21 17:00 08/28/21 19:55 Temperature 96.2 F L 98.6 F 97.8 F Pulse Rate 84 104 H 99 H Respiratory Rate 16 16 18 Blood Pressure 106/63 120/66 120/60 Pulse Oximetry 96 104 H 98 Oxygen Delivery Method Room Air Oxygen Flow Rate 0 Narrative Exam Narrative: NO ACUTE DISTRESS. ? PLEASANTLY DEMENTED VITAL SIGNS STABLE HEAD ATRAUMATIC NORMOCEPHALIC NECK : SUPPLE WITHOUT ADENOPATHY NO CAROTID BRUITS .? NO LAD EYE:? EOMI, PERRLA, NORMAL CONJUNCTIVA; NO JAUNDICE CHEST:? REGULAR RATE.? ? NO RUBS.? PMI IS NON DISPLACED.? NO MURMURS; NORMAL S1- S2 PULMONARY:? ? MILD BIBASILAR CRACKLES NOTED; NO INCREASED DULLNESS TO PERCUSSION.? NO WHEEZING. ABDOMEN:? SOFT.? NONTENDER.? NONDISTENDED.? BOWEL SOUNDS ARE PRESENT IN ALL 4 QUADRANTS.? ? MONOTYA CATHETER IN PLACE EXTREMITIES: 2+ TAP PULLER BLE EDEMA..? NO CYANOSIS CLUBBING NOTED. NEURO:? CRANIAL NERVES 2-12 GROSSLY INTACT. NO FOCAL NEUROLOGICAL DEFICIT NOTED. MSK:? NORMAL RANGE OF MOTION FOR AGE.? NO JOINT EFFUSION. SKIN: ? AGE ASSOCIATED POOR SKIN TURGOR; NO ECCHYMOSIS.? NO LESION. ? GOOD? TURGOR.; NO RASHES :? NORMAL EXTERNAL GENITALIA. MONTOYA CATHETER IN PLACE.? HEMATURIA PRECEDED PSYCH : ? CALM.? COOPERATIVE. Objective Labs Result Diagrams: 08/28/21 04:45 08/28/21 04:45 Labs: Laboratory Results - last 24 hr 08/27/21 08/28/21 08/28/21 22:45 04:45 04:45 WBC 5.4 RBC 3.72 L Hgb 11.7 L Hct 34.5 L MCV 92.8 MCH 31.5 MCHC 33.9 RDW 13.7 Plt Count 124 L Neut % (Auto) 70.3 Lymph % (Auto) 18.8 L [place] % (Auto) 8.9 Eos % (Auto) 1.5 L Baso % (Auto) 0.5 Neut # (Auto) 3800 Lymph # (Auto) 1000 L [place] # (Auto) 500 Eos # (Auto) 100 Baso # (Auto) 0 Sodium 136 L Potassium 4.1 Chloride 104 Carbon Dioxide 27 BUN 15 Creatinine 0.85 Estimated GFR > 60 BUN/Creatinine Ratio 17.6 Glucose 94 Calcium 8.0 L Phosphorus 3.6 Magnesium 1.6 Total Bilirubin 2.0 H AST 29 ALT 11 Alkaline Phosphatase 82 Total Protein 5.7 L Albumin 3.1 L Globulin 2.6 Albumin/Globulin Ratio 1.2 SARS-CoV-2 (PCR) Negative PFSH Medical History (Updated 08/16/21 @ 12:54 by John Perez MD) Afib Alzheimer's disease Bilateral nephrolithiasis Bilateral ureteral calculi BPH w urinary obs/LUTS Chronic cough Congestive heart failure COPD (chronic obstructive pulmonary disease) Coronary heart disease Gross hematuria Heart attack History of migraine headaches 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) Hypercholesterolemia Left ureteral calculus MRSA (methicillin resistant Staphylococcus aureus) Renal calculus, right Renal colic on left side Retained ureteral stent Surgical History (Updated 08/22/21 @ 14:34 by Sandi Kellogg RN) H/O circumcision H/O vasectomy History of cataract extraction History of coronary artery stent placement History of incision and drainage History of knee replacement (1996) History of knee replacement (1999) History of urologic surgery (06/16/20) Hx of CABG (2010) Hx of cystoscopy (07/20/21) Family History Mother Cancer Sister Cancer Father Coronary artery disease Social History marital status: unmarried,single household members: family occupational status: previously employed Smoking Status: Former smoker alcohol intake: never caffeine: No Assessment & Plan Assessment & Plan narrative: ?IMPRESSION ?STATUS POST FAILED RIGHT URETERAL STENT REMOVAL ?STATUS POST RECENT LEFT URETERAL STENT ?HEMATURIA.? 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 NOT SURE OF BASELINE MENTATION ?BPH PER HISTORY ?CHRONIC SYSTOLIC HEART FAILURE FOR HISTORY.? NO SIGN OF ACUTE? DECOMPENSATION ?AGE ASSOCIATED PHYSICAL DECONDITIONING/DEBILITY ?PLAN CONTINUE CURRENT MANAGEMENT FOR NOW NO INDICATION TO MAKE ANY SIGNIFICANT CHANGES THE CURRENT APPROACH PATIENT AWAITING POSSIBLE TRANSFER TO TERTIARY FACILITY WILL AWAIT ADDITIONAL RECOMMENDATIONS FROM THE SURGICAL TEAM IN REGARD TO TRANSFER CONSULTED PT AND OT FOR EVALUATION AND TREATMENT PATIENT MAY NEED PLACEMENT TO INTERMEDIATE FACILITY ON DISPOSITION CONTINUE TO FOLLOW LABS DAILY FOR NOW LABS ARE FAIRLY STABLE. PATIENT REMAINED AFEBRILE. CONTINUE TO FOLLOW CLOSELY 08/27 ?MONITOR PATIENT CLOSELY ?PATIENT HAS A HISTORY OF CHRONIC SYSTOLIC HEART FAILURE, WILL DISCONTINUE ALL IV FLUID FOR NOW ?STARTED ON THE DIET.? ADVANCE TOLERATED ?DEFER ANTIBIOTICS IF NEEDED TO THE SURGICAL TEAM ?MONITOR INPUT AND OUTPUT CLOSELY ?REPEAT LABS IN THE MORNING ?WILL ALSO ORDER INCENTIVE SPIROMETER FOR PATIENT TO USE WHILE AWAKE. ? PATIENT S? NURSE TO? PROVIDE INSTRUCTION IN REGARD TO PROPER USE OF THE DEVICE IF POSSIBLE ?MAINTAIN STRICT FALL AND ASPIRATION PRECAUTIONS ?PT AND OT TO ASSESS IN THE MORNING ?NURSING TO KEEP? LYTES IN THE ROOM ON AT ALL TIMES TO DECREASE THE RISK OF SUNDOWNING ?REORIENT PATIENT WHEN? POSSIBLE ?NURSING TO MONITOR SKIN CLOSELY WELL DURING? EACH ASSESSMENT ?CONTINUE HOME MEDS DICTATED ? ADDITIONAL MANAGEMENT PER CLINICAL COURSE ?DURATION OF STAY PER CLINICAL COURSE Time Spent With Patient Critical Care time: I spent a total of [] minutes of critical care time on this patient's care today; this time is exclusive of procedural time. Quality VTE Deep Vein Thrombosis/Pulmonary Embolism Present on Admission: No
[2021-08-28] MEDS: TAMSULOSIN 0.4 MG CAPSULE 0.8 MG PO (22:18)
[2021-08-29] VITALS: BP 98/62; PULSE 86; RESP 18; TEMP 36.4; O2SAT 94
--- NOTE | 2021-08-29 02:18 | PC.NURSE ---
2300: assumed care from BLANCA BRITO. patient sleeping soundly most of the NOC. called RN to room using call light my juliana is sticky. 2pa for charmaine-care, small amount of dark red blood drainage cleaned from meatus, thighs and catheter tubing. ensured this was taped securely to his leg. ratliff is draining clear dark hortensia urine to gravity. patient assisted w/ turning, able to hold self over by holding the bed rail. alert and oriented, able to correctly state his name & birthdate, today's date/place/situation. call light w/in reach, bed alarm is on. view room. frequent safety and room checks.
[2021-08-29 04:00] VITALS: BP 112/61; PULSE 86; RESP 18; TEMP 37.5; O2SAT 95
[2021-08-29 04:03] LABS: Add Manual Diff / Slide Review NO; Basophils Absolute Auto 0 /uL (0-100); Basophils Percent Auto 0.6 % (0-2); Eosinophils Absolute Auto 100 /uL (0-450); Eosinophils Percent Auto 1.7 % (2-4); Hematocrit 34.8 % (41-53); Hemoglobin 11.7 g/dL (13.5-17.5); Lymphocytes Absolute Auto 1300 /uL (1100-4500); Lymphocytes Percent Auto 23.9 % (25-40); Mean Corpuscular HGB Conc 33.7 % (30-36); Mean Corpuscular Hemoglobin 31.3 PG (26-34); Mean Corpuscular Volume 93.1 fL (80-100); Monocytes Absolute Auto 500 /uL (0-900); Neutrophils Absolute Auto 3400 /uL (1500-7000); Neutrophils Percent Auto 63.8 % (50-75); Platelet Count 121 X10^3/uL (150-400); Red Blood Cell Count 3.74 X10^6/uL (4.5-5.9); Red Cell Distribution Width 13.9 % (11.6-14.8); White Blood Cell Count 5.3 X10^3/uL (4.5-11.0)
[2021-08-29 04:21] LABS: Alanine Aminotransferase 10 IU/L (<50); Albumin 3.1 g/dL (3.5-5.0); Albumin Globulin Ratio 1.2 (1.0-2.8); Alkaline Phosphatase 80 U/L (38-126); Aspartate Aminotransferase 22 IU/L (17-59); BUN Creatinine Ratio 17.5 (6-22); Blood Urea Nitrogen 14 mg/dL (9-20); Calcium 8.3 mg/dL (8.4-10.2); Carbon Dioxide 29 mmol/L (22-32); Chloride 102 mmol/L (98-107); Estimated Glomerular Filt Rate > 60 mL/min (>60); Globulin 2.6 g/dL (1.7-4.1); Glucose 102 mg/dL (80-110); HEMOLYSIS < 15 (0-50); Magnesium 1.7 mg/dL (1.6-2.3); Phosphorous 3.2 mg/dL (2.3-3.7); Potassium 3.9 mmol/L (3.4-5.1); Sodium 137 mmol/L (137-145); Total Protein 5.7 g/dL (6.3-8.2)
[2021-08-29] MEDS: MULTIVITAMIN 1 TABLET 1 TAB PO (08:29)
[2021-08-29] MEDS: CALCIUM CARB/VIT D3 500/200 TABLET 1 EACH PO (08:29)
[2021-08-29] MEDS: ATORVASTATIN 20 MG TABLET PO (08:29)
[2021-08-29] MEDS: METOPROLOL IR 50 MG TABLET 12.5 MG PO ×2 (08:29→20:33)
[2021-08-29 09:17] VITALS: PULSE 82; RESP 16; O2SAT 95
[2021-08-29 09:27] VITALS: BP 110/50; PULSE 81; RESP 15; TEMP 36.9; O2SAT 93
--- NOTE | 2021-08-29 10:40 | OT.IP.TRT ---
Current Diagnoses Calculus of kidney (08/28/21) Presence of urogenital implants (08/28/21) Surgery Performed Operation Date: 08/27/21 09:45 Actual Procedures p Cystoscopy - John Perez MD p Extracorporeal Shock Wave Lithotripsy(Right) - John Perez MD Occupational Therapy Treatment Note M2 OT-IP Current Condition Start: 08/28/21 12:54 Freq: Status: Active Protocol: Document 08/28/21 12:54 [facility] (Rec: 08/28/21 13:22 [facility] [id number]) Occupational Therapy Current Condition Current Condition Evaluation Date 08/28/21 Treatment Diagnosis s/p Failed right uretral stent removal, s/p recent left uretral stent Diagnosis Onset Date 08/27/21 M3 OT- IP Subjective and Pain Start: 08/28/21 12:54 Freq: Status: Active Protocol: Document 08/29/21 11:06 [facility] (Rec: 08/29/21 12:18 [facility] [id number]) OT- Subjective Occupational Therapy Visit Type Type Treatment Note Visit Start Time 10:40 Visit Stop Time 11:15 Total Visit Minutes 35 Occupational Therapy Visit Comments Patient Comments Pt agreed to get up and brush his teeth. Pt's sister present in the room. Patient/Caregiver Goals Pt's sister is open for pt to go to skilled rehab as she feels he is too weak to take care of at this time. OT Pain Assessment Pain When Pain Assessed During Mobility Pain Present Pain Present Pain Reported Location Right knee Pain Behaviors Holding Area M4 OT- IP ADL's Start: 08/28/21 12:54 Freq: Status: Active Protocol: Document 08/29/21 11:06 [facility] (Rec: 08/29/21 12:18 [facility] [id number]) OT [id number]-[id number] Comments OT Self-Feeding Comments Not at meal time. OT ADL-Grooming General Evaluation Grooming Ability Standby Assistance Areas Needing Assistance Retrieving/Set-up of Grooming Items Comments OT Grooming Comments able to do while seated OT ADL-Oral Care General Eval Oral Care Ability Standby Assistance Areas of Assistance Retrieving/Set-Up of Items Comments Oral Care Comments while seated OT ADL-Dressing General Eval Lower Body Dressing Ability Total Assistance Areas Needing Assistance Shoes Comments OT Dressing Comments Pt's sister states pt able to use LB dressing equipment for dressing needs but that she just ends up assisting him. OT ADL-Toileting General Evaluation Toileting Ability Total Assistance Comments OT Toileting Comments Katz in place. OT ADL-Bathing Bathing Type Bathing Type Sponge Bath Comments OT Bathing Comments Pt able to assist to sponge his chest, arms, and face as his gown got wet from spitting while brushing his teeth. M5 OT- IP IADL's Start: 08/28/21 12:54 Freq: Status: Active Protocol: Document 08/28/21 12:54 [facility] (Rec: 08/28/21 13:22 [facility] [id number]) OT-Instrumental Activities of Daily Living Deficits IADL Deficits Identified Deficits Home Safety Awareness Awareness of Need for Assistance at Home Decreased Awareness Ability to Problem Solve Emergency Unable to Problem Solve Situations Medication Management Medication Management Caregiver Administers Money Management Money Management Caregiver Provides Assistance Meal Preparation Meal Preparation Caregiver Provides Assist Corporate Treasury Analyst Corporate Treasury Analyst Caregiver Provides Assist M6 OT- IP Functional Cognition Start: 08/28/21 12:54 Freq: Status: Active Protocol: Document 08/29/21 11:06 [facility] (Rec: 08/29/21 12:18 [facility] [id number]) Cognitive Factors Limiting Selfcare Function Cognitive Ability Level of Alertness Alert Patient Orientation Name Attention Span Ability Capable of Focused Attention, Capable of Sustained Attention Ability to Follow Commands Able to Follow One Step Commands with Increased Time, Able to Follow One Step Commands with Repetition Cognitive Comments Cognitive Assessment Comments Pt able to follow concrete simple commands. Pt a bit impulsive, however cooperative and pleasant. Pt needing safety reminders to grab the bed rail to assist to turn and push up on the recliner armrests when coming to stand. M7 OT- IP Mobility and Balance Start: 08/28/21 12:54 Freq: Status: Active Protocol: Document 08/29/21 11:06 [facility] (Rec: 08/29/21 12:18 [facility] [id number]) OT- Bed Mobility Assessment Rolling Type of Rolling Roll to Left Level of Assistance Moderate Assistance,1 Person Assistance Supine to Sit Supine to Sit Assist Maximum Assistance,1 Person Assistance Scooting Scooting to Edge of Bed Maximum Assistance,1 Person Assistance OT-Transfer Assessment Sit to and From Stand Sit to and from Stand Moderate Assistance,2 Person Assistance Transfers Transfer Ability Moderate Assistance,2 Person Assistance Technique Transfer Destination Bed Transfer Technique Stand Step Pivot Devices Transfer Assistive Devices Gait Belt,Front Wheeled Walker Comments Mobility Comments MAXA x1 to get up from the bed and MODA X2 to stand from a higher surfaces, Noted today due to his LLE pain having to extend his LLE out while coming to stand. Once on his feet , pt able to take a few steps with the FWW. OT- Balance Assessment Sitting Balance and Reactions Static Sitting Balance Ability Good Dynamic Sitting Balance Ability Fair Standing Balance and Reactions Static Standing Balance Ability Poor M8 OT- IP Objective Assessments Start: 08/28/21 12:54 Freq: Status: Active Protocol: Document 08/28/21 12:54 [facility] (Rec: 08/28/21 13:22 [facility] [id number]) OT Gross Range of Motion Upper Extremity Range of Motion Assessment Within Functional Limits OT Strength Upper Extremity Strength Assessment Within Functional Limits OT- Coordination Assessment Upper Extremity Finger to Nose Test Within Functional Limits OT-Muscle Tone Assessment Muscle Tone WNL Yes M9 OT- IP Assessment and Plan Start: 08/28/21 12:54 Freq: Status: Active Protocol: Document 08/29/21 11:06 [facility] (Rec: 08/29/21 12:18 [facility] [id number]) OT Summary Assessment and Plan Potential Rehabilitation Potential Good Analytic Complexity at Evaluation Moderate Summary OT Impairments Balance,Functional Mobility, Self-Feeding,Grooming,Dressing ,Toileting,Bathing,Toilet Transfers,Shower Transfers Progress Towards Goals Slow Progress due to Medical Issues,Slow Progress due to Activity Tolerance,Slow Progress due to Cognition Assessment Summary Pt still needing two person assist for bed mobility and transfer needs with FWW. Pt needing cues for completeness for grooming and oral care needs at this time. Pt would greatly benefit from skilled rehab prior to going home. Goals Self-Feeding Goal Standby Assistance Grooming Goal Standby Assistance Dressing Goal Minimal Assistance Toileting Goal Minimal Assistance Bathing Goal Minimal Assistance Toilet Transfer Goal Standby Assistance Shower Transfer Goal Contact Guard Assistance Days to Meet Goals 20 Frequency of Treatment Frequency Of Treatment Once a Day Treatment Plan OT Treatment Plan ADL Training,Functional Cognition Training,Functional Mobility,Patient/Family Education,Discharge Planning Other Treatment Recommendations and Next LB dressing equipment practice Treatment Focus Discharge Recommendations OT Discharge Recommendations SNF Rehab Transportation Needs at Discharge Wheelchair/Cabulance
--- NOTE | 2021-08-29 11:04 | PT.IPTN ---
Current Diagnoses Calculus of kidney (08/28/21) Presence of urogenital implants (08/28/21) Surgery Performed Operation Date: 08/27/21 09:45 Actual Procedures p Cystoscopy - John Perez MD p Extracorporeal Shock Wave Lithotripsy(Right) - John Perez MD Physical Therapy Treatment Note M2 PT-IP Current Condition Start: 08/28/21 16:20 Freq: NEEDED Status: Active Protocol: Document 08/28/21 14:50 AB (Rec: 08/28/21 16:34 AB [id number]) Physical Therapy Current Condition Current Condition Evaluation Date 08/28/21 Treatment Diagnosis s/p cystoscopy and lithotripsy ; difficulty in walking Onset Date 08/27/21 M3 PT-IP Subjective Start: 08/28/21 16:20 Freq: NEEDED Status: Active Protocol: Document 08/29/21 10:40 KS (Rec: 08/29/21 11:23 KS [id number]) Subjective Physical Therapy Visit Type Type Treatment Note Visit Start Time 10:40 Visit Stop Time 11:04 Total Visit Minutes 24 Notes co-treat w/ OT. Pts sister in room during treatment. Number of PATTERNATOR Visits 1 M4 PT-IP Mobility and Gait Start: 08/28/21 16:20 Freq: NEEDED Status: Active Protocol: Document 08/29/21 10:40 KS (Rec: 08/29/21 11:23 KS [id number]) PT-Bed Mobility Assessment Supine to Sit Supine to Sit Maximum Assistance,1 Person Assistance,Head of Bed Elevated,Bedrails Scooting Scooting to Edge of Bed Maximum Assistance PT-Transfer Assessment Sit to and From Stand Sit to and from Stand Moderate Assistance,2 Person Assistance,Use of Upper Extremities Equipment Transfer Assistive Device Gait Belt,Front Wheeled Walker Orthotic/Prosthetic Devices or Brace: No Transfers Transfer Destination Chair Transfer Technique Stand Step Pivot Transfer Ability Level of Assist Moderate Assistance,2 Person Assistance,Use of Upper Extremities Comments Mobility Comments Pt in bed upon arrival and agreeable to transfer to chair . Mod A x2 and max cues for sup>sit and Max A for scooting EOB. Pt able to sit<>stand from raised bed w/ cues for hand placment Mod A x2 and stand step pivot to chair Mod A x2 max cues. Pt then agreed to ambulate w/ chair follow. He performed 2x 6 ft ambulaion w/ FWW and Mod A w/ cues for upright posture and FWW management. Pts sister assisted w/ sit<>Stand and stated she does not normally need to provide and physical assist and pt much weaker than baseline. Pt positioned in chair and left in chair w/ all needs in reach. Gait Assessment Gait Gait Assistance Required: Moderate Assistance,1 Person Assist Distance (Feet) 6 Assistive Devices Assistive Device Gait Belt,Front Wheeled Walker Orthotic/Prosthetic Devices or Brace: No Gait Deviations General Gait Pattern Antalgic,Decreased Stride Length,Decreased Feet Clearance,Flexed Trunk,Lateral Trunk Lean Factors Limiting Gait Function Factors Limiting Gait Function Decreased Activity Tolerance, Decreased Strength,Pain,Poor Balance,Poor Safety Awareness Comments Gait Comments Pt needing Mod A w/ FWW w/ frequent cues for FWW management and upright posture . Unsafe to ambulate w/o assistance. Stair Climbing Assessment Comments Stair Climbing Comments Unable to assess. Instructed pt to perform marching in place but pt unable to elevated LE high enough to ascend steps. PT-Balance Assessment Sitting Balance and Reactions Static Sitting Balance Ability Good Dynamic Sitting Balance Ability Fair Standing Balance and Reactions Static Standing Balance Ability Poor Dynamic Standing Balance Ability Poor Device Used FWW M5 PT-IP Objective Assessments Start: 08/28/21 16:20 Freq: NEEDED Status: Active Protocol: Document 08/28/21 14:50 AB (Rec: 08/28/21 16:34 AB [id number]) Orientation Orientation/Cognition Level of Alertness Confusional State Orientation Name Language Function Ability Hard of Hearing Safety Awareness Decreased Safety Awareness Memory Description Short Term Impaired,Usp Impaired Gross Range of Motion Lower Extremity ROM Assessment Within Functional Limits Strength Lower Extremity Strength Assessment Within Functional Limits Muscle Tone Muscle Tone WNL Yes M6 PT-IP Treatment Start: 08/28/21 16:20 Freq: NEEDED Status: Active Protocol: Document 08/29/21 10:40 KS (Rec: 08/29/21 11:23 KS [id number]) Physical Therapy Treatment Exercises Exercises Ankle Pumps,Heel Slides, Straight Leg Raises Education Education Provided Safety M7 PT-IP Assessment and Plan Start: 08/28/21 16:20 Freq: NEEDED Status: Active Protocol: Document 08/29/21 10:40 KS (Rec: 08/29/21 11:23 KS [id number]) PT Summary Assessment and Plan Potential Rehabilitation Potential Good Status of Condition at Evaluation Evolving Summary Impairments Pain,ROM,Strength,Balance, Coordination,Sensation,Tone, Cognition,Bed Mobility, Transfers,Gait,Activity Tolerance Assessment Summary Pt Mod A x2-Max A x1 for mobility today. Max A for bed mobility, Mod A x2 for transfers from raised bed w/ FWW and cues for hand placement and sequencing. Able to ambulate 6 ft x2 w/ chair follow and FWW Mod A max verbal and tactile cues for safety, FWW mgmt, and upright posture. Pt requiring much more assist than his baseline and will require SNF to improve strength and functional mobility independence. Goals Bed Mobility Goal Minimal Assistance Transfer Goal Minimal Assistance,Front Wheeled Walker Gait Goal Minimal Assistance,Front Wheel Walker Gait Distance 50 Other Goals improve bed mobility, transfers using FWW and ambulation ~ 100 ft CGA up/down 4 steps B rails CGA Days to Meet Goals 10 Frequency of Treatment Frequency Of Treatment Once a Day Treatment Plan Physical Therapy Treatment Plan Bed Mobility Training,Transfer Training,Gait Training, Therapeutic Exercise,Balance Retraining,Post Op Education, Discharge Planning,Hot or Cold Pack,Neuromuscular Re-ed, Coordination Retraining,Manual Therapy Precautions Other Precautions falls Recommendations To Nursing Amount of Assist Needed 2 Person Assist Discharge Recommendations PT Discharge Recommendations SNF Rehab Transportation Needs at Discharge Wheelchair/Cabulance
--- NOTE | 2021-08-29 14:51 | CM.DPNOTE ---
Faxed referral to [facility] per Betzy and received fax conf. Yaneth Wolf CM Assist.
--- NOTE | 2021-08-29 14:53 | CM.DPC ---
DCP Cont: Per MD, unclear if pt needs hospital transfer for Urology and awaiting direction from Urologist Dr. Perez who completed pt's initial stent placement at admission 08/27/21 and Urologist has not see pt bedside since surgical intervention. Per PT, recommending possible SNF due to pt's assist needs but has made progress today from 2PA to 1PA. SW met bedside with pt, who has dementia and very pleasant and calm but not able to fully participate in planning, and his sister whom pt lives with and is DPOA. Discussed possible SNF and she confirms pt has two COVID vaccination but did not get the Booster as he had a difficult reaction to his second COVID dose. Pt has hx of SNF when [facility] had a facility on [facility] but 10 years ago. Sister states she feels that with pt's progress today and due to his dementia, she would like pt to d/c home and has other local family that can stay and help assist and would be agreeable to [facility]. Sister plans to get additional DME at home from [facility] in Friday. Sister aware that pt is OBS Status and likely would need to d/c tomorrow per OBS criteria unless Urology has other recommendations to remain in the hospital or transfer. SW called [facility] to request Dr. Perez round on the pt again for further recommendations or to please call Hospitalist for consultation to determine if pt stable for d/c tomorrow and provided Hospitalist cell number and also alerted Hospitalist that Urologist should hopefully be calling for consultation. BETHANY Wolfe kindly faxed referral to [facility] and called with new referral to request review. F2F completed but needs MD signature. Plan: SW to follow closely in the AM for Urologist recommendations to determine if pt stable for d/c home with new [facility] and any further needs. MAHNAZ Briones
[2021-08-29] MEDS: DONEPEZIL 5 MG TABLET 10 MG PO (16:36)
--- NOTE | 2021-08-29 17:50 | PC.NURSE ---
Pt is AxOx2, forgetful, and need 2 person assistance. VSS, pt denies pain; pt is eating well and sleeping well. Katz is draining cranberry color urine; adequate urine output. Last BM on 08/29. No other changes.
--- NOTE | 2021-08-29 19:46 | PM.PN.1 ---
Subjective Subjective Date Patient Seen: 08/29/21 Interval history: 81-YEAR-OLD MALE IN THE HOSPITAL AFTER A FAILED MOVABLE OF A RIGHT URETERAL STENT BY UROLOGY PLAN TO TRANSFER TO TERTIARY FACILITY FOR ADDITIONAL MANAGEMENT TODAY NO SIGNIFICANT ISSUES REPORTED BY NURSING OVERNIGHT REVIEW OF SYSTEM IS UNRELIABLE DUE TO BASELINE DEMENTIA Exam Vital Signs (past 8 hours): Oxygen Delivery Method Room Air Oxygen Flow Rate 0 Narrative Exam Narrative: NO ACUTE DISTRESS. ? PLEASANTLY DEMENTED VITAL SIGNS STABLE HEAD ATRAUMATIC NORMOCEPHALIC NECK : SUPPLE WITHOUT ADENOPATHY NO CAROTID BRUITS .? NO LAD EYE:? EOMI, PERRLA, NORMAL CONJUNCTIVA; NO JAUNDICE CHEST:? REGULAR RATE.? ? NO RUBS.? PMI IS NON DISPLACED.? NO MURMURS; NORMAL S1-S2 PULMONARY:? ? MILD BIBASILAR CRACKLES NOTED; NO INCREASED DULLNESS TO PERCUSSION.? NO WHEEZING. ABDOMEN:? SOFT.? NONTENDER.? NONDISTENDED.? BOWEL SOUNDS ARE PRESENT IN ALL 4 QUADRANTS.? ? MONTOYA CATHETER IN PLACE EXTREMITIES: 2+ INSTRUMENT REPAIRER HELPER BLE EDEMA..? NO CYANOSIS CLUBBING NOTED. NEURO:? CRANIAL NERVES 2-12 GROSSLY INTACT. NO FOCAL NEUROLOGICAL DEFICIT NOTED. MSK:? NORMAL RANGE OF MOTION FOR AGE.? NO JOINT EFFUSION. SKIN: ? AGE ASSOCIATED POOR SKIN TURGOR; NO ECCHYMOSIS.? NO LESION. ? GOOD? TURGOR.; NO RASHES :? NORMAL EXTERNAL GENITALIA. MONTOYA CATHETER IN PLACE.? HEMATURIA PRECEDED PSYCH : ? CALM.? COOPERATIVE. Objective Labs Result Diagrams: 08/29/21 03:53 08/29/21 03:53 Labs: Laboratory Results - last 24 hr 08/29/21 08/29/21 03:53 03:53 WBC 5.3 RBC 3.74 L Hgb 11.7 L Hct 34.8 L MCV 93.1 MCH 31.3 MCHC 33.7 RDW 13.9 Plt Count 121 L Neut % (Auto) 63.8 Lymph % (Auto) 23.9 L Collin % (Auto) 10.0 Eos % (Auto) 1.7 L Baso % (Auto) 0.6 Neut # (Auto) 3400 Lymph # (Auto) 1300 Collin # (Auto) 500 Eos # (Auto) 100 Baso # (Auto) 0 Sodium 137 Potassium 3.9 Chloride 102 Carbon Dioxide 29 BUN 14 Creatinine 0.80 Estimated GFR > 60 BUN/Creatinine Ratio 17.5 Glucose 102 Calcium 8.3 L Phosphorus 3.2 Magnesium 1.7 Total Bilirubin 2.0 H AST 22 ALT 10 Alkaline Phosphatase 80 Total Protein 5.7 L Albumin 3.1 L Globulin 2.6 Albumin/Globulin Ratio 1.2 PFS Medical History (Updated 08/16/21 @ 12:54 by John Perez MD) Afib Alzheimer's disease Bilateral nephrolithiasis Bilateral ureteral calculi BPH w urinary obs/LUTS Chronic cough Congestive heart failure COPD (chronic obstructive pulmonary disease) Coronary heart disease Gross hematuria Heart attack History of migraine headaches 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) Hypercholesterolemia Left ureteral calculus MRSA (methicillin resistant Staphylococcus aureus) Renal calculus, right Renal colic on left side Retained ureteral stent Surgical History (Updated 08/22/21 @ 14:34 by Sandi Kellogg RN) H/O circumcision H/O vasectomy History of cataract extraction History of coronary artery stent placement History of incision and drainage History of knee replacement (1996) History of knee replacement (1999) History of urologic surgery (06/16/20) Hx of CABG (2010) Hx of cystoscopy (07/20/21) Family History Mother Cancer Sister Cancer Father Coronary artery disease Social History marital status: unmarried,single household members: family occupational status: previously employed Smoking Status: Former smoker alcohol intake: never caffeine: No Assessment & Plan Assessment & Plan narrative: ?IMPRESSION ?STATUS POST FAILED RIGHT URETERAL STENT REMOVAL ?STATUS POST RECENT LEFT URETERAL STENT ?HEMATURIA.? 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 NOT SURE OF BASELINE MENTATION ?BPH PER HISTORY ?CHRONIC SYSTOLIC HEART FAILURE FOR HISTORY.? NO SIGN OF ACUTE? DECOMPENSATION ?AGE ASSOCIATED PHYSICAL DECONDITIONING/DEBILITY ?PLAN SPOKE TO THE SURGICAL TEAM IN REGARD TO THE CASE TODAY DAY HAVE PATIENT SCHEDULE FOR A UROLOGY EVALUATION AT TERTIARY FACILITY HOWEVER THIS CAN HAPPEN UNTIL NEXT MONTH WILL CONFIRM WITH THEM THE EXACT DATE IN THE MORNING IN THE MEANWHILE, PATIENT MONEY TO BE DISCHARGED TO RESIDENTIAL FACILITY DUE TO SIGNIFICANT PHYSICAL DECONDITIONING WILL SPEAK TO CASE MANAGEMENT REGARD TO DISCHARGE PLANNING IN THE MORNING ADDITIONAL MANAGEMENT PER CLINICAL COURSE 08/28 CONTINUE CURRENT MANAGEMENT FOR NOW NO INDICATION TO MAKE ANY SIGNIFICANT CHANGES THE CURRENT APPROACH PATIENT AWAITING POSSIBLE TRANSFER TO TERTIARY FACILITY WILL AWAIT ADDITIONAL RECOMMENDATIONS FROM THE SURGICAL TEAM IN REGARD TO TRANSFER CONSULTED PT AND OT FOR EVALUATION AND TREATMENT PATIENT MAY NEED PLACEMENT TO RESIDENTIAL FACILITY ON DISPOSITION CONTINUE TO FOLLOW LABS DAILY FOR NOW LABS ARE FAIRLY STABLE.? PATIENT REMAINED AFEBRILE. CONTINUE TO FOLLOW CLOSELY 08/27 ?MONITOR PATIENT CLOSELY ?PATIENT HAS A HISTORY OF CHRONIC SYSTOLIC HEART FAILURE, WILL DISCONTINUE ALL IV FLUID FOR NOW ?STARTED ON THE DIET.? ADVANCE TOLERATED ?DEFER ANTIBIOTICS IF NEEDED TO THE SURGICAL TEAM ?MONITOR INPUT AND OUTPUT CLOSELY ?REPEAT LABS IN THE MORNING ?WILL ALSO ORDER INCENTIVE SPIROMETER FOR PATIENT TO USE WHILE AWAKE. ? PATIENT S? NURSE TO? PROVIDE INSTRUCTION IN REGARD TO PROPER USE OF THE DEVICE IF POSSIBLE ?MAINTAIN STRICT FALL AND ASPIRATION PRECAUTIONS ?PT AND OT TO ASSESS IN THE MORNING ?NURSING TO KEEP? LYTES IN THE ROOM ON AT ALL TIMES TO DECREASE THE RISK OF SUNDOWNING ?REORIENT PATIENT WHEN? POSSIBLE ?NURSING TO MONITOR SKIN CLOSELY WELL DURING? EACH ASSESSMENT ?CONTINUE HOME MEDS DICTATED ? ADDITIONAL MANAGEMENT PER CLINICAL COURSE ?DURATION OF STAY PER CLINICAL COURSE Time Spent With Patient Critical Care time: I spent a total of [] minutes of critical care time on this patient's care today; this time is exclusive of procedural time. Quality VTE Deep Vein Thrombosis/Pulmonary Embolism Present on Admission: No
[2021-08-29 20:00] VITALS: BP 133/68; PULSE 55; RESP 20; TEMP 36.6; O2SAT 98
[2021-08-29] MEDS: TAMSULOSIN 0.4 MG CAPSULE 0.8 MG PO (20:34)
[2021-08-30] VITALS: BP 111/73; PULSE 80; RESP 18; TEMP 36.6; O2SAT 96
--- NOTE | 2021-08-30 02:47 | PC.NURSE ---
Shift Note: Patient was alert and orientedx2, follows commands, denies any discomfort or pain, vital signs are stable and within acceptable limits. O2 sat maintained at 96%, on room air. Katz cath in placed with hortensia reddish urine output noted. Had bowel movement on bedside commode, patient was able to get up with 2-person assist, on front-wheel walker. Safety precautions maintained.
[2021-08-30 04:00] LABS: Add Manual Diff / Slide Review NO; Basophils Absolute Auto 0 /uL (0-100); Basophils Percent Auto 0.8 % (0-2); Eosinophils Absolute Auto 100 /uL (0-450); Eosinophils Percent Auto 2.6 % (2-4); Hematocrit 34.6 % (41-53); Hemoglobin 11.6 g/dL (13.5-17.5); Lymphocytes Absolute Auto 1500 /uL (1100-4500); Lymphocytes Percent Auto 29.3 % (25-40); Mean Corpuscular HGB Conc 33.6 % (30-36); Mean Corpuscular Hemoglobin 31.4 PG (26-34); Mean Corpuscular Volume 93.3 fL (80-100); Monocytes Absolute Auto 500 /uL (0-900); Monocytes Percent Auto 9.6 % (3-14); Neutrophils Absolute Auto 3000 /uL (1500-7000); Neutrophils Percent Auto 57.7 % (50-75); Platelet Count 127 X10^3/uL (150-400); Red Blood Cell Count 3.71 X10^6/uL (4.5-5.9); Red Cell Distribution Width 13.8 % (11.6-14.8); White Blood Cell Count 5.1 X10^3/uL (4.5-11.0)
[2021-08-30 04:15] LABS: Alanine Aminotransferase 11 IU/L (<50); Albumin 3.2 g/dL (3.5-5.0); Albumin Globulin Ratio 1.2 (1.0-2.8); Alkaline Phosphatase 90 U/L (38-126); Aspartate Aminotransferase 24 IU/L (17-59); Bilirubin Total 1.5 mg/dL (0.2-1.3); Blood Urea Nitrogen 17 mg/dL (9-20); Calcium 8.3 mg/dL (8.4-10.2); Carbon Dioxide 29 mmol/L (22-32); Chloride 103 mmol/L (98-107); Estimated Glomerular Filt Rate > 60 mL/min (>60); Globulin 2.7 g/dL (1.7-4.1); Glucose 102 mg/dL (80-110); HEMOLYSIS < 15 (0-50); Magnesium 1.7 mg/dL (1.6-2.3); Potassium 3.8 mmol/L (3.4-5.1); Sodium 138 mmol/L (137-145); Total Protein 5.9 g/dL (6.3-8.2)
[2021-08-30 05:30] VITALS: BP 111/61; PULSE 85; RESP 16; TEMP 36.3; O2SAT 95
[2021-08-30 08:00] VITALS: BP 104/56; PULSE 75; RESP 16; TEMP 36.4; O2SAT 92
[2021-08-30] MEDS: CALCIUM CARB/VIT D3 500/200 TABLET 1 EACH PO (08:35)
[2021-08-30] MEDS: MULTIVITAMIN 1 TABLET 1 TAB PO (08:35)
[2021-08-30] MEDS: ATORVASTATIN 20 MG TABLET PO (08:35)
[2021-08-30] MEDS: METOPROLOL IR 50 MG TABLET 12.5 MG PO ×2 (08:35→20:06)
--- NOTE | 2021-08-30 10:43 | PT.IPTN ---
Current Diagnoses Calculus of kidney (08/28/21) Presence of urogenital implants (08/28/21) Surgery Performed Operation Date: 08/27/21 09:45 Actual Procedures p Cystoscopy - John Perez MD p Extracorporeal Shock Wave Lithotripsy(Right) - John Perez MD Physical Therapy Treatment Note M2 PT-IP Current Condition Start: 08/28/21 16:20 Freq: NEEDED Status: Active Protocol: Document 08/28/21 14:50 AB (Rec: 08/28/21 16:34 AB [id number]) Physical Therapy Current Condition Current Condition Evaluation Date 08/28/21 Treatment Diagnosis s/p cystoscopy and lithotripsy ; difficulty in walking Onset Date 08/27/21 M3 PT-IP Subjective Start: 08/28/21 16:20 Freq: NEEDED Status: Active Protocol: Document 08/30/21 10:17 KS (Rec: 08/30/21 12:41 KS [id number]) Subjective Physical Therapy Visit Type Type Treatment Note Visit Start Time 10:17 Visit Stop Time 10:43 Total Visit Minutes 26 Notes Pts sister present during tx. Number of PACKAGE WORKER Visits 2 M4 PT-IP Mobility and Gait Start: 08/28/21 16:20 Freq: NEEDED Status: Active Protocol: Document 08/30/21 10:17 KS (Rec: 08/30/21 12:41 KS [id number]) PT-Bed Mobility Assessment Supine to Sit Supine to Sit Moderate Assistance,1 Person Assistance,Head of Bed Elevated,Bedrails Scooting Scooting to Edge of Bed Maximum Assistance PT-Transfer Assessment Sit to and From Stand Sit to and from Stand Moderate Assistance,1 Person Assistance,Use of Upper Extremities Equipment Transfer Assistive Device Gait Belt,Front Wheeled Walker Orthotic/Prosthetic Devices or Brace: No Transfers Transfer Destination Chair Transfer Technique Stand Step Pivot Transfer Ability Level of Assist Moderate Assistance,1 Person Assistance,Use of Upper Extremities Comments Mobility Comments Pt in bed upon arrival and agreeable to transfer and ambulate. Mod A max cues for sup<>sit and Max A for scooting EOB. Pt Mod A and max cues for sit<>Stand w/ FWW from raised bed. He then performed stand step pivot to chair Mod A for FWW management . Pt then stood again and ambulaed ~12 ft w/ RN providing chair follow. He completed this twice. Unsafe to ambulate w/o chair follow at this time due to quick approach to fatigue, confusion , and weakness. Pt then performed 1x10 bilateral LAQs, seated marches, and ankle pumps. Pt left in chair w/ all needs in reach. Gait Assessment Gait Gait Assistance Required: Moderate Assistance,1 Person Assist Distance (Feet) 12 Assistive Devices Assistive Device Gait Belt,Front Wheeled Walker Orthotic/Prosthetic Devices or Brace: No Gait Deviations General Gait Pattern Antalgic,Decreased Stride Length,Decreased Feet Clearance,Flexed Trunk,Lateral Trunk Lean Comments Gait Comments Pt needing Mod A w/ FWW w/ frequent cues for FWW management and upright posture . Unsafe to ambulate w/o assistance. Stair Climbing Assessment Comments Stair Climbing Comments Unable to assess. Instructed pt to perform marching in place but pt unable to elevated LE high enough to ascend steps. PT-Balance Assessment Sitting Balance and Reactions Static Sitting Balance Ability Good Dynamic Sitting Balance Ability Fair Standing Balance and Reactions Static Standing Balance Ability Poor Dynamic Standing Balance Ability Poor Device Used FWW M5 PT-IP Objective Assessments Start: 08/28/21 16:20 Freq: NEEDED Status: Active Protocol: Document 08/28/21 14:50 AB (Rec: 08/28/21 16:34 AB [id number]) Orientation Orientation/Cognition Level of Alertness Confusional State Orientation Name Language Function Ability Hard of Hearing Safety Awareness Decreased Safety Awareness Memory Description Short Term Impaired,Fci Impaired Gross Range of Motion Lower Extremity ROM Assessment Within Functional Limits Strength Lower Extremity Strength Assessment Within Functional Limits Muscle Tone Muscle Tone WNL Yes M6 PT-IP Treatment Start: 08/28/21 16:20 Freq: NEEDED Status: Active Protocol: Document 08/30/21 10:17 KS (Rec: 08/30/21 12:41 KS [id number]) Physical Therapy Treatment Exercises Exercises Ankle Pumps Education Education Provided Safety Other Treatments Other Treatment Performed LAQs, seated marches M7 PT-IP Assessment and Plan Start: 08/28/21 16:20 Freq: NEEDED Status: Active Protocol: Document 08/30/21 10:17 KS (Rec: 08/30/21 12:41 KS [id number]) PT Summary Assessment and Plan Potential Rehabilitation Potential Good Status of Condition at Evaluation Evolving Summary Impairments Pain,ROM,Strength,Balance, Coordination,Sensation,Tone, Cognition,Bed Mobility, Transfers,Gait,Activity Tolerance Assessment Summary Pt slightly better with mobility today, requiring Mod A x1 and max cues for all tasks. Able to ambulate 12 ft w/ FWW Mod A w/ chair follow twice and perform minimal leg exercises, but quick approach to fatigue. Pt still unable to elevated LE high enough to perform steps. He wll require SNF to improv strength and functional mobility. Goals Bed Mobility Goal Minimal Assistance Transfer Goal Minimal Assistance,Front Wheeled Walker Gait Goal Minimal Assistance,Front Wheel Walker Gait Distance 50 Other Goals improve bed mobility, transfers using FWW and ambulation ~ 100 ft CGA up/down 4 steps B rails CGA Days to Meet Goals 10 Frequency of Treatment Frequency Of Treatment Once a Day Treatment Plan Physical Therapy Treatment Plan Bed Mobility Training,Transfer Training,Gait Training, Therapeutic Exercise,Balance Retraining,Post Op Education, Discharge Planning,Hot or Cold Pack,Neuromuscular Re-ed, Coordination Retraining,Manual Therapy Precautions Other Precautions falls Recommendations To Nursing Amount of Assist Needed 2 Person Assist Discharge Recommendations PT Discharge Recommendations SNF Rehab Transportation Needs at Discharge Wheelchair/Cabulance
--- NOTE | 2021-08-30 11:26 | PC.NURSE ---
Day shift note: Patient received mail from Kimo Donald (lawyer real estate). Notified Brandee regarding delivery, mail to be read by legal guardian.
--- NOTE | 2021-08-30 11:42 | PC.NURSE ---
Day shift note: Patient up OOB to chair, ambulated approx 10-12 ft in room. 1 PA FWW.
[2021-08-30] MEDS: MAGNESIUM CHLORIDE 64 MG TABLET 128 MG PO (12:47)
--- NOTE | 2021-08-30 14:43 | OT.IP.TRT ---
Current Diagnoses Calculus of kidney (08/28/21) Presence of urogenital implants (08/28/21) Surgery Performed Operation Date: 08/27/21 09:45 Actual Procedures p Cystoscopy - John Perez MD p Extracorporeal Shock Wave Lithotripsy(Right) - John Perez MD Occupational Therapy Treatment Note M2 OT-IP Current Condition Start: 08/28/21 12:54 Freq: Status: Active Protocol: Document 08/28/21 12:54 [facility] (Rec: 08/28/21 13:22 [facility] [id number]) Occupational Therapy Current Condition Current Condition Evaluation Date 08/28/21 Treatment Diagnosis s/p Failed right uretral stent removal, s/p recent left uretral stent Diagnosis Onset Date 08/27/21 M3 OT- IP Subjective and Pain Start: 08/28/21 12:54 Freq: Status: Active Protocol: Document 08/30/21 14:24 [facility] (Rec: 08/30/21 15:00 [facility] [id number]) OT- Subjective Occupational Therapy Visit Type Type Treatment Note Visit Start Time 14:24 Visit Stop Time 14:43 Total Visit Minutes 19 Occupational Therapy Visit Comments Patient Comments Pt agreed to get up to the recliner. Patient/Caregiver Goals To go home, but sister open to pt going to skilled rehab as needed. OT Pain Assessment Pain When Pain Assessed At Rest Pain Present Pain Present Denied Pain M4 OT- IP ADL's Start: 08/28/21 12:54 Freq: Status: Active Protocol: Document 08/30/21 14:24 [facility] (Rec: 08/30/21 15:00 [facility] [id number]) OT [id number] Comments OT Self-Feeding Comments Not at meal time. OT ADL-Oral Care Comments Oral Care Comments Attempted to have pt stand for oral care needs and his sister states that he has not do so for 2 months and felt that it would be too much for him to do at this time. OT ADL-Dressing General Eval Lower Body Dressing Ability Moderate Assistance Areas Needing Assistance Socks Comments OT Dressing Comments Pt able to doff right sock and needing assist for left sock. Pt's sister states they have a sock aid at home but she ends up assisting him as it is much faster. OT ADL-Toileting General Evaluation Toileting Ability Total Assistance Comments OT Toileting Comments Katz in place. OT ADL-Bathing Comments OT Bathing Comments Not performed. M5 OT- IP IADL's Start: 08/28/21 12:54 Freq: Status: Active Protocol: Document 08/28/21 12:54 [facility] (Rec: 08/28/21 13:22 [facility] [id number]) OT-Instrumental Activities of Daily Living Deficits IADL Deficits Identified Deficits Home Safety Awareness Awareness of Need for Assistance at Home Decreased Awareness Ability to Problem Solve Emergency Unable to Problem Solve Situations Medication Management Medication Management Caregiver Administers Money Management Money Management Caregiver Provides Assistance Meal Preparation Meal Preparation Caregiver Provides Assist Java Technical Manager Java Technical Manager Caregiver Provides Assist OT- Balance Assessment Sitting Balance and Reactions Static Sitting Balance Ability Good Dynamic Sitting Balance Ability Fair Standing Balance and Reactions Static Standing Balance Ability Poor M8 OT- IP Objective Assessments Start: 08/28/21 12:54 Freq: Status: Active Protocol: Document 08/28/21 12:54 [facility] (Rec: 08/28/21 13:22 [facility] [id number]) OT Gross Range of Motion Upper Extremity Range of Motion Assessment Within Functional Limits OT Strength Upper Extremity Strength Assessment Within Functional Limits OT- Coordination Assessment Upper Extremity Finger to Nose Test Within Functional Limits OT-Muscle Tone Assessment Muscle Tone WNL Yes M9 OT- IP Assessment and Plan Start: 08/28/21 12:54 Freq: Status: Active Protocol: Document 08/30/21 14:24 [facility] (Rec: 08/30/21 15:00 [facility] [id number]) OT Summary Assessment and Plan Potential Rehabilitation Potential Good Analytic Complexity at Evaluation Moderate Summary OT Impairments Balance,Functional Mobility, Self-Feeding,Grooming,Dressing ,Toileting,Bathing,Toilet Transfers,Shower Transfers Progress Towards Goals Progressing Toward Goals Assessment Summary Today pt able to come to stand with CGA/HARLEEN from higher surfaces and walk with FWW to the recliner and back from the [facility]. Pt much improved with mobility needs today. Pt would benefit from short skilled rehab versus pending more progress home with 28/10 assist and home health. Goals Self-Feeding Goal Standby Assistance Grooming Goal Standby Assistance Dressing Goal Minimal Assistance Toileting Goal Minimal Assistance Bathing Goal Minimal Assistance Toilet Transfer Goal Standby Assistance Shower Transfer Goal Contact Guard Assistance Days to Meet Goals 15 Frequency of Treatment Frequency Of Treatment Once a Day Treatment Plan OT Treatment Plan ADL Training,Functional Cognition Training,Functional Mobility,Patient/Family Education,Discharge Planning Discharge Recommendations OT Discharge Recommendations Home with 24/7 Assist Available,Home Health,SNF Rehab,Home vs SNF Transportation Needs at Discharge Private Vehicle,Wheelchair/ Cabulance
--- NOTE | 2021-08-30 15:28 | PM.PN.1 ---
Subjective Subjective Date Patient Seen: 08/30/21 Interval history: 81-YEAR-OLD MALE IN THE HOSPITAL AFTER A FAILED REMOVABLE OF A RIGHT URETHRAL STENT BY UROLOGY ?PATIENT HAD THAT STENT PLACED MORE THAN A YEAR AGO.? BUT FAILED TO FOLLOW UP FOR THE REMOVAL. HE DID HAVE A LEFT STENT PLACED ALSO IN ANY CASE, MULTIPLE ATTEMPT TO REMOVE THE RIGHT STENT HAS BEEN? UNSUCCESSFUL? PATIENT WILL NEED A PERCUTANEOUS APPROACH PER ALLERGY ?A FOLLOW-UP APPOINTMENT HAS BEEN SET FOR 09/18/21? AT [facility] IN [place] ?SISTER IS DPOA.? SHE IS AWARE OF THE PLAN. ? PATIENT NEEDS? [facility] PLACEMENT DUE TO SIGNIFICANT PHYSICAL DEBILITY PLAN TO TRANSFER TO [facility] FOR ADDITIONAL MANAGEMENT Exam Vital Signs (past 8 hours): - 08/30/21 08:00 Temperature 97.6 F Pulse Rate 75 Respiratory Rate 16 Blood Pressure 104/56 L Pulse Oximetry 92 Oxygen Delivery Method Room Air Oxygen Flow Rate 0 Narrative Exam Narrative: NO ACUTE DISTRESS. ? PLEASANTLY DEMENTED VITAL SIGNS STABLE HEAD ATRAUMATIC NORMOCEPHALIC NECK : SUPPLE WITHOUT ADENOPATHY NO CAROTID BRUITS .? NO LAD EYE:? EOMI, PERRLA, NORMAL CONJUNCTIVA; NO JAUNDICE CHEST:? REGULAR RATE.? ? NO RUBS.? PMI IS NON DISPLACED.? NO MURMURS; NORMAL S1-S2 PULMONARY:? ? MILD BIBASILAR CRACKLES NOTED; NO INCREASED DULLNESS TO PERCUSSION.? NO WHEEZING. ABDOMEN:? SOFT.? NONTENDER.? NONDISTENDED.? BOWEL SOUNDS ARE PRESENT IN ALL 4 QUADRANTS.? ? MONTOYA CATHETER IN PLACE EXTREMITIES: 2+ HOT BOX OPERATOR BLE EDEMA..? NO CYANOSIS CLUBBING NOTED. NEURO:? CRANIAL NERVES 2-12 GROSSLY INTACT. NO FOCAL NEUROLOGICAL DEFICIT NOTED. DEMENTAI MSK:? NORMAL RANGE OF MOTION FOR AGE.? NO JOINT EFFUSION. POOR MUSCULATURE SKIN: ? AGE ASSOCIATED POOR SKIN TURGOR; NO ECCHYMOSIS :? NORMAL EXTERNAL GENITALIA. MONTOYA CATHETER IN PLACE.? HEMATURIA PRECEDED PSYCH : ? CALM.? COOPERATIVE. Objective Labs Result Diagrams: 08/30/21 03:40 08/30/21 03:40 Labs: Laboratory Results - last 24 hr 08/30/21 08/30/21 03:40 03:40 WBC 5.1 RBC 3.71 L Hgb 11.6 L Hct 34.6 L MCV 93.3 MCH 31.4 MCHC 33.6 RDW 13.8 Plt Count 127 L Neut % (Auto) 57.7 Lymph % (Auto) 29.3 Bremer % (Auto) 9.6 Eos % (Auto) 2.6 Baso % (Auto) 0.8 Neut # (Auto) 3000 Lymph # (Auto) 1500 Bremer # (Auto) 500 Eos # (Auto) 100 Baso # (Auto) 0 Sodium 138 Potassium 3.8 Chloride 103 Carbon Dioxide 29 BUN 17 Creatinine 0.85 Estimated GFR > 60 BUN/Creatinine Ratio 20.0 Glucose 102 Calcium 8.3 L Phosphorus 3.0 Magnesium 1.7 Total Bilirubin 1.5 H AST 24 ALT 11 Alkaline Phosphatase 90 Total Protein 5.9 L Albumin 3.2 L Globulin 2.7 Albumin/Globulin Ratio 1.2 PFSH Medical History (Updated 08/16/21 @ 12:54 by John Perez MD) Afib Alzheimer's disease Bilateral nephrolithiasis Bilateral ureteral calculi BPH w urinary obs/LUTS Chronic cough Congestive heart failure COPD (chronic obstructive pulmonary disease) Coronary heart disease Gross hematuria Heart attack History of migraine headaches 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) Hypercholesterolemia Left ureteral calculus MRSA (methicillin resistant Staphylococcus aureus) Renal calculus, right Renal colic on left side Retained ureteral stent Surgical History (Updated 08/22/21 @ 14:34 by Sandi Kellogg RN) H/O circumcision H/O vasectomy History of cataract extraction History of coronary artery stent placement History of incision and drainage History of knee replacement (1996) History of knee replacement (1999) History of urologic surgery (06/16/20) Hx of CABG (2010) Hx of cystoscopy (07/20/21) Family History Mother Cancer Sister Cancer Father Coronary artery disease Social History marital status: unmarried,single household members: family occupational status: previously employed Smoking Status: Former smoker alcohol intake: never caffeine: No Assessment & Plan Assessment & Plan narrative: IMPRESSION ?STATUS POST FAILED RIGHT URETERAL STENT REMOVAL; NEED FOLLOW UP AT [facility] IN [place] ?STATUS POST RECENT LEFT URETERAL STENT; STABLE ?HEMATURIA.? LIKELY TRAUMATIC; RESOLVED ?HYPERTENSION PER HISTORY ?HYPERLIPIDEMIA PER HISTORY ?DEMENTIA PER HISTORY.? AT BASELINE MENTATION ?BPH PER HISTORY ?CHRONIC SYSTOLIC HEART FAILURE FOR HISTORY.? NO SIGN OF ACUTE? DECOMPENSATION ?AGE ASSOCIATED PHYSICAL DECONDITIONING/DEBILITY ?PLAN SPOKE TO UROLOGY IN REGARD TO THE CASE PATIENT HAS A FOLLOW-UP APPOINTMENT SET AT [facility] IN September PER HIS SISTER WHO IS THE POA, THIS IS A CONSULTATION WHICH COULD BE DONE VIA VIDEO CONTINUE CURRENT MANAGEMENT FOR NOW PATIENT IS BEING SEEN BY PHYSICAL THERAPY CASE MANAGEMENT IS AWARE OF RECOMMENDATION FOR [facility]ILITY PLACEMENT ASSISTANCE WITH DISCHARGE PLANNING GROSSLY APPRECIATED CONTINUE HOME MEDS DC ONCE ABLE TO SECURE AN ACCEPTING [facility] F[facility]ILITY STABLE AND CLEARED FOR DISCHARGE 08/29 SPOKE TO THE SURGICAL TEAM IN REGARD TO THE CASE TODAY DAY HAVE PATIENT SCHEDULE FOR A UROLOGY EVALUATION AT [facility] F[facility]ILITY HOWEVER THIS CAN HAPPEN UNTIL NEXT MONTH WILL CONFIRM WITH THEM THE EXACT DATE IN THE MORNING IN THE MEANWHILE, PATIENT MONEY TO BE DISCHARGED TO [facility] FACILITY DUE TO SIGNIFICANT PHYSICAL DECONDITIONING WILL SPEAK TO CASE MANAGEMENT REGARD TO DISCHARGE PLANNING IN THE MORNING ADDITIONAL MANAGEMENT PER CLINICAL COURSE 08/28 CONTINUE CURRENT MANAGEMENT FOR NOW NO INDICATION TO MAKE ANY SIGNIFICANT CHANGES THE CURRENT APPROACH PATIENT AWAITING POSSIBLE TRANSFER TO [facility] WILL AWAIT ADDITIONAL RECOMMENDATIONS FROM THE SURGICAL TEAM IN REGARD TO TRANSFER CONSULTED PT AND OT FOR EVALUATION AND TREATMENT PATIENT MAY NEED PLACEMENT TO [facility] FACILITY ON DISPOSITION CONTINUE TO FOLLOW LABS DAILY FOR NOW LABS ARE FAIRLY STABLE.? PATIENT REMAINED AFEBRILE. CONTINUE TO FOLLOW CLOSELY 08/27 ?MONITOR PATIENT CLOSELY ?PATIENT HAS A HISTORY OF CHRONIC SYSTOLIC HEART FAILURE, WILL DISCONTINUE ALL IV FLUID FOR NOW ?STARTED ON THE DIET.? ADVANCE TOLERATED ?DEFER ANTIBIOTICS IF NEEDED TO THE SURGICAL TEAM ?MONITOR INPUT AND OUTPUT CLOSELY ?REPEAT LABS IN THE MORNING ?WILL ALSO ORDER INCENTIVE SPIROMETER FOR PATIENT TO USE WHILE AWAKE. ? PATIENT S? NURSE TO? PROVIDE INSTRUCTION IN REGARD TO PROPER USE OF THE DEVICE IF POSSIBLE ?MAINTAIN STRICT FALL AND ASPIRATION PRECAUTIONS ?PT AND OT TO ASSESS IN THE MORNING ?NURSING TO KEEP? LYTES IN THE ROOM ON AT ALL TIMES TO DECREASE THE RISK OF SUNDOWNING ?REORIENT PATIENT WHEN? POSSIBLE ?NURSING TO MONITOR SKIN CLOSELY WELL DURING? EACH ASSESSMENT ?CONTINUE HOME MEDS DICTATED ? ADDITIONAL MANAGEMENT PER CLINICAL COURSE ?DURATION OF STAY PER CLINICAL COURSE Time Spent With Patient Critical Care time: I spent a total of [] minutes of critical care time on this patient's care today; this time is exclusive of procedural time. Quality VTE Deep Vein Thrombosis/Pulmonary Embolism Present on Admission: No
--- NOTE | 2021-08-30 15:40 | CM.DPNOTE ---
Addendum entered by MAHNAZ Peguero 08/30/21 15:49: Correction: PT/OT already seeing patient. No new orders placed. Original Note: DCP Note Met w/patient and sister Urvashi this morning to review DCP, sister explains patient was walking around on his own with a cane before coming in here PT/OT orders placed this morning. Patient has MCR/[employer] Out of [facility] and is currently under observation status Urvashi clarifies that if COVID waiver (as explained by this TROMBONE SLIDE ASSEMBLER) does not work for patient she will pay out of pocket for his care and can afford the one month deposit. Placed call to Sharon at [facility] (family's preference) reviewed referral and information above. Sharon will review. Patient is double vaccinated but not boosted...sister states patient had a bad reaction to the second vax so did not get patient boosted Awaiting feedback from [facility] re acceptance, COVID waiver vs private payment (?) JW
[2021-08-30] MEDS: DONEPEZIL 5 MG TABLET 10 MG PO (16:07)
[2021-08-30 20:00] VITALS: BP 115/55; PULSE 78; RESP 18; TEMP 36.4; O2SAT 98
[2021-08-30] MEDS: TAMSULOSIN 0.4 MG CAPSULE 0.8 MG PO (20:06)
[2021-08-30] MEDS: HEPARIN 5,000 UNIT/ML VIAL 5000 UNIT SUBCUT (20:07)
[2021-08-30 23:43] VITALS: BP 118/66; PULSE 76; RESP 18; TEMP 36.6; O2SAT 96
[2021-08-31] VITALS (7 sets, daily range): BP systolic 102–117; BP diastolic 56–63; PULSE 68–90; RESP 16–18; TEMP 36.2–37.2; O2SAT 93–99
[2021-08-31] MEDS: ASPIRIN 81 MG CHEW TAB PO (10:39)
[2021-08-31] MEDS: METOPROLOL IR 50 MG TABLET 12.5 MG PO ×2 (10:39→20:15)
[2021-08-31] MEDS: MULTIVITAMIN 1 TABLET 1 TAB PO (10:39)
[2021-08-31] MEDS: ATORVASTATIN 20 MG TABLET PO (10:39)
[2021-08-31] MEDS: HEPARIN 5,000 UNIT/ML VIAL 5000 UNIT SUBCUT ×2 (10:40→20:15)
[2021-08-31] MEDS: CALCIUM CARB/VIT D3 500/200 TABLET 1 EACH PO (10:43)
[2021-08-31] MEDS: ALBUTEROL 2.5 MG/3 ML NEB (ADULT) INH (11:42)
[2021-08-31] MEDS: BUDESONIDE 0.5 MG/2 ML NEB INH (11:42)
--- NOTE | 2021-08-31 11:45 | PT.IPTN ---
Current Diagnoses Calculus of kidney (08/28/21) Presence of urogenital implants (08/28/21) Surgery Performed Operation Date: 08/27/21 09:45 Actual Procedures p Cystoscopy - John Perez MD p Extracorporeal Shock Wave Lithotripsy(Right) - John Perez MD Physical Therapy Treatment Note M2 PT-IP Current Condition Start: 08/28/21 16:20 Freq: NEEDED Status: Active Protocol: Document 08/28/21 14:50 [facility] (Rec: 08/28/21 16:34 [facility] [id number]) Physical Therapy Current Condition Current Condition Evaluation Date 08/28/21 Treatment Diagnosis s/p cystoscopy and lithotripsy ; difficulty in walking Onset Date 08/27/21 M3 PT-IP Subjective Start: 08/28/21 16:20 Freq: NEEDED Status: Active Protocol: Document 08/31/21 11:30 [facility] (Rec: 08/31/21 12:07 [facility] [id number]) Subjective Physical Therapy Visit Type Type Treatment Note Visit Start Time 11:30 Visit Stop Time 11:45 Total Visit Minutes 15 Notes Pts sister present during tx. Number of COTTON GRADER Visits 3 M4 PT-IP Mobility and Gait Start: 08/28/21 16:20 Freq: NEEDED Status: Active Protocol: Document 08/31/21 11:30 [facility] (Rec: 08/31/21 12:07 [facility] [id number]) PT-Bed Mobility Assessment Supine to Sit Supine to Sit Moderate Assistance,1 Person Assistance,Head of Bed Elevated,Bedrails Scooting Scooting to Edge of Bed Maximum Assistance PT-Transfer Assessment Sit to and From Stand Sit to and from Stand Moderate Assistance,1 Person Assistance,Use of Upper Extremities Equipment Transfer Assistive Device Gait Belt,Front Wheeled Walker Orthotic/Prosthetic Devices or Brace: No Transfers Transfer Destination Chair Transfer Technique Stand Step Pivot Transfer Ability Level of Assist Moderate Assistance,1 Person Assistance,Use of Upper Extremities Comments Mobility Comments Pt in bed upon arrival and agreeable to get into chair for lunch. Pt previously requested later tx due to fatigue from using BSC. Pt Mod A and max cues for sup<>sit and Max A for scooting EOB. Pt Mod A for sit<>stand w/ FWW w / cues for upright posture and hand placement. Pt then performed stand step pivot from bed to chair. After sitting, pt refused further ambulation but did participate in LE exercises including ankle pumps and sated marches. Pt left in chair w/ alarm on and all needs in reach. Gait Assessment Gait Gait Assistance Required: Moderate Assistance,1 Person Assist Distance (Feet) 2 Assistive Devices Assistive Device Gait Belt,Front Wheeled Walker Gait Deviations General Gait Pattern Antalgic,Decreased Stride Length,Decreased Feet Clearance,Flexed Trunk,Lateral Trunk Lean Factors Limiting Gait Function Factors Limiting Gait Function Decreased Activity Tolerance, Decreased Strength,Pain,Poor Balance,Poor Safety Awareness Comments Gait Comments Unable to progress gait due to pt fatigue today. Stair Climbing Assessment Comments Stair Climbing Comments Unable to assess due to weakness and fatigue. PT-Balance Assessment Sitting Balance and Reactions Static Sitting Balance Ability Good Dynamic Sitting Balance Ability Fair Standing Balance and Reactions Static Standing Balance Ability Poor Dynamic Standing Balance Ability Poor Device Used FWW M5 PT-IP Objective Assessments Start: 08/28/21 16:20 Freq: NEEDED Status: Active Protocol: Document 08/28/21 14:50 [facility] (Rec: 08/28/21 16:34 [facility] [id number]) Orientation Orientation/Cognition Level of Alertness Confusional State Orientation Name Language Function Ability Hard of Hearing Safety Awareness Decreased Safety Awareness Memory Description Short Term Impaired,Senior Living Impaired Gross Range of Motion Lower Extremity ROM Assessment Within Functional Limits Strength Lower Extremity Strength Assessment Within Functional Limits Muscle Tone Muscle Tone WNL Yes M6 PT-IP Treatment Start: 08/28/21 16:20 Freq: NEEDED Status: Active Protocol: Document 08/31/21 11:30 [facility] (Rec: 08/31/21 12:07 [facility] [id number]) Physical Therapy Treatment Exercises Exercises Ankle Pumps Education Education Provided Safety Other Treatments Other Treatment Performed Seated marches M7 PT-IP Assessment and Plan Start: 08/28/21 16:20 Freq: NEEDED Status: Active Protocol: Document 08/31/21 11:30 [facility] (Rec: 08/31/21 12:07 [facility] [id number]) PT Summary Assessment and Plan Potential Rehabilitation Potential Good Status of Condition at Evaluation Evolving Summary Impairments Pain,ROM,Strength,Balance, Coordination,Sensation,Tone, Cognition,Bed Mobility, Transfers,Gait,Activity Tolerance Assessment Summary Pt still requiring Mod A to Max A for bed mobility, Mod A for sit<>Stand and transfers using FWW and max cues for all tasks. Limited today due to pt fatigue and unable to progress gait. Pt will require SNF to improve strength and functional mobility independence. Goals Bed Mobility Goal Minimal Assistance Transfer Goal Minimal Assistance,Front Wheeled Walker Gait Goal Minimal Assistance,Front Wheel Walker Gait Distance 50 Other Goals improve bed mobility, transfers using FWW and ambulation ~ 100 ft CGA up/down 4 steps B rails CGA Days to Meet Goals 10 Frequency of Treatment Frequency Of Treatment Once a Day Treatment Plan Physical Therapy Treatment Plan Bed Mobility Training,Transfer Training,Gait Training, Therapeutic Exercise,Balance Retraining,Post Op Education, Discharge Planning,Hot or Cold Pack,Neuromuscular Re-ed, Coordination Retraining,Manual Therapy Precautions Other Precautions falls Recommendations To Nursing Amount of Assist Needed 2 Person Assist Discharge Recommendations PT Discharge Recommendations SNF Rehab Transportation Needs at Discharge Wheelchair/Cabulance
--- NOTE | 2021-08-31 14:04 | OT.IP.TRT ---
Current Diagnoses Calculus of kidney (08/28/21) Presence of urogenital implants (08/28/21) Surgery Performed Operation Date: 08/27/21 09:45 Actual Procedures p Cystoscopy - John Perez MD p Extracorporeal Shock Wave Lithotripsy(Right) - John Perez MD Occupational Therapy Treatment Note M2 OT-IP Current Condition Start: 08/28/21 12:54 Freq: Status: Active Protocol: Document 08/28/21 12:54 [facility] (Rec: 08/28/21 13:22 [facility] [id number]) Occupational Therapy Current Condition Current Condition Evaluation Date 08/28/21 Treatment Diagnosis s/p Failed right uretral stent removal, s/p recent left uretral stent Diagnosis Onset Date 08/27/21 M3 OT- IP Subjective and Pain Start: 08/28/21 12:54 Freq: Status: Active Protocol: Document 08/31/21 14:12 [facility] (Rec: 08/31/21 14:24 [facility] [id number]) OT- Subjective Occupational Therapy Visit Type Type Treatment Note Visit Start Time 13:45 Visit Stop Time 14:04 Total Visit Minutes 19 Occupational Therapy Visit Comments Patient Comments Nursing aid states pt just getting back to bed. Pt agreed to work on bed mobility with OT. Patient/Caregiver Goals To go home, but sister open to pt going to skilled rehab as needed. OT Pain Assessment Pain When Pain Assessed At Rest Pain Present Pain Present Denied Pain M5 OT- IP IADL's Start: 08/28/21 12:54 Freq: Status: Active Protocol: Document 08/28/21 12:54 [facility] (Rec: 08/28/21 13:22 [facility] [id number]) OT-Instrumental Activities of Daily Living Deficits IADL Deficits Identified Deficits Home Safety Awareness Awareness of Need for Assistance at Home Decreased Awareness Ability to Problem Solve Emergency Unable to Problem Solve Situations Medication Management Medication Management Caregiver Administers Money Management Money Management Caregiver Provides Assistance Meal Preparation Meal Preparation Caregiver Provides Assist Transport Specialist Transport Specialist Caregiver Provides Assist M6 OT- IP Functional Cognition Start: 08/28/21 12:54 Freq: Status: Active Protocol: Document 08/31/21 14:12 [facility] (Rec: 08/31/21 14:24 [facility] [id number]) Cognitive Factors Limiting Selfcare Function Cognitive Comments Cognitive Assessment Comments Pt able to follow commands better today especially with visual cues and not impulsive today. OT- Vision and Hearing OT- Vision Assessment Visual Acuity Glasses All The Time M7 OT- IP Mobility and Balance Start: 08/28/21 12:54 Freq: Status: Active Protocol: Document 08/31/21 14:12 [facility] (Rec: 08/31/21 14:24 [facility] [id number]) OT- Bed Mobility Assessment Rolling Level of Assistance Standby Assistance,Contact Guard Assistance Supine to Sit Supine to Sit Assist Standby Assistance,Contact Guard Assistance Sit to Supine Sit to Supine Assist Standby Assistance Scooting Scooting Up and Down in Bed Standby Assistance,Contact Guard Assistance OT-Transfer Assessment Comments Mobility Comments Pt needing cues to roll all the way to his side and first time needing HARLEEN to roll to the left and pt able to push up on the bed with increased time to get up. 2nd time pt able to complete on his own with just cues. Pt tnds to use momentum to get himself back to bed. Pt after cues able to scoot himself with his hands on the bed and by leaning forwards on his legs to be able to scoot up the bed . OT- Balance Assessment Sitting Balance and Reactions Static Sitting Balance Ability Good Dynamic Sitting Balance Ability Good Comments Other Balance Tests/Deviations/Treatment Pt much improved with bed : mobility today especially for out of the bed and able to use his arms and trunk control to sit up versus momentum . M8 OT- IP Objective Assessments Start: 08/28/21 12:54 Freq: Status: Active Protocol: Document 08/28/21 12:54 [facility] (Rec: 08/28/21 13:22 [facility] [id number]) OT Gross Range of Motion Upper Extremity Range of Motion Assessment Within Functional Limits OT Strength Upper Extremity Strength Assessment Within Functional Limits OT- Coordination Assessment Upper Extremity Finger to Nose Test Within Functional Limits OT-Muscle Tone Assessment Muscle Tone WNL Yes M9 OT- IP Assessment and Plan Start: 08/28/21 12:54 Freq: Status: Active Protocol: Document 08/31/21 14:12 [facility] (Rec: 08/31/21 14:24 [facility] [id number]) OT Summary Assessment and Plan Potential Rehabilitation Potential Good Analytic Complexity at Evaluation Moderate Summary OT Impairments Balance,Functional Mobility, Self-Feeding,Grooming,Dressing ,Toileting,Bathing,Toilet Transfers,Shower Transfers Progress Towards Goals Progressing Toward Goals Assessment Summary Pt much improved for bed mobility needs today. Pt is very pleasant and cooperative. Pt will still benefit from skilled rehab. Goals Self-Feeding Goal Standby Assistance Grooming Goal Standby Assistance Dressing Goal Minimal Assistance Toileting Goal Minimal Assistance Bathing Goal Minimal Assistance Toilet Transfer Goal Standby Assistance Shower Transfer Goal Contact Guard Assistance Days to Meet Goals 14 Frequency of Treatment Frequency Of Treatment Once a Day Treatment Plan OT Treatment Plan ADL Training,Functional Cognition Training,Functional Mobility,Patient/Family Education,Discharge Planning Discharge Recommendations OT Discharge Recommendations SNF Rehab Transportation Needs at Discharge Wheelchair/Cabulance
--- NOTE | 2021-08-31 15:01 | PM.PN.1 ---
Subjective Subjective Interval history: Patient with advanced dementia and so unable to meaningfully participate in history acquisition. Exam Vital Signs (past 8 hours): - 08/31/21 08:00 08/31/21 10:22 08/31/21 12:22 Temperature 98.2 F Pulse Rate 76 86 Respiratory Rate 16 16 Blood Pressure 117/63 Pulse Oximetry 94 95 97 Oxygen Delivery Method Room Air Oxygen Flow Rate 0 Const Other: Patient sitting up in chair comfortably upon my entering the room, in no apparent acute distress Eyes Other: No scleral icterus appreciated Resp Other: Lungs clear to auscultation to anterior carrillo Cardio Other: RRR, with normal S1 and S2 heart sounds, no extra heart sounds or murmurs appreciated GI Other: Soft, non-distended, non-tender, bowel sounds present, no CVA tenderness elicited Skin Other: No grossly abnormal skin lesions noted Extrem Other: Palpable radial pulses bilaterally Objective Labs Result Diagrams: 08/30/21 03:40 08/30/21 03:40 [facility] Medical History (Updated 08/16/21 @ 12:54 by John Perez MD) Afib Alzheimer's disease Bilateral nephrolithiasis Bilateral ureteral calculi BPH w urinary obs/LUTS Chronic cough Congestive heart failure COPD (chronic obstructive pulmonary disease) Coronary heart disease Gross hematuria Heart attack History of migraine headaches 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) Hypercholesterolemia Left ureteral calculus MRSA (methicillin resistant Staphylococcus aureus) Renal calculus, right Renal colic on left side Retained ureteral stent Surgical History (Updated 08/22/21 @ 14:34 by Sandi Kellogg RN) H/O circumcision H/O vasectomy History of cataract extraction History of coronary artery stent placement History of incision and drainage History of knee replacement (1996) History of knee replacement (1999) History of urologic surgery (06/16/20) Hx of CABG (2010) Hx of cystoscopy (07/20/21) Family History Mother Cancer Sister Cancer Father Coronary artery disease Social History marital status: unmarried,single household members: family occupational status: previously employed Smoking Status: Former smoker alcohol intake: never caffeine: No Assessment & Plan Assessment & Plan narrative: Assessment: 1. Failed right ureteral stent removal, pending removal at [facility] 2. Recent left ureteral stent placement, July 2021 3. Advanced dementia, unknown type 4. Hypertension 5. BPH 6. Physicial debility/deconditioning, likely age-related Plan: 1. Patient has an appt on September 18 at [facility] for likely percutaneous attempt at stent removal. 2. Patient follows with urology, Dr. White. 3. Will continue home donepezil 10 mg nightly. 4. Will continue home Lopressor 12.5 mg bid. 5. Will continue home tamsulosin 0.8 mg nightly. 6. PT/OT recommends SNF, and pending placement. VTE prophylaxis: Heparin 5000 units bid Code: Full code I have utilized all available immediate resources to obtain, update, or verify the patient's current medications. Time Spent With Patient Critical Care time: I spent a total of [] minutes of critical care time on this patient's care today; this time is exclusive of procedural time. Quality VTE Deep Vein Thrombosis/Pulmonary Embolism Present on Admission: No MIPS - Admit I confirm the patient?s Advance Care Plan is present, Code status is documented, Surrogate decision maker is in patient?s record [If Yes, STOP here]: Yes
[2021-08-31] MEDS: DONEPEZIL 5 MG TABLET 10 MG PO (17:12)
[2021-08-31] MEDS: TAMSULOSIN 0.4 MG CAPSULE 0.8 MG PO (20:15)
[2021-08-31] MEDS: SODIUM CHLORIDE 0.9% FLUSH 10 ML IV (20:26)
[2021-09-01] VITALS: BP 102/58; PULSE 63; RESP 19; TEMP 36.4; O2SAT 97
--- NOTE | 2021-09-01 05:52 | PC.NURSE ---
Pt has been sleeping on and off throughout the night. Pt refusing to have his v/s taken every 4 hours. V/s have been wnl.
[2021-09-01] MEDS: BUDESONIDE 0.5 MG/2 ML NEB INH (07:52)
[2021-09-01 07:53] VITALS: PULSE 84; RESP 18; O2SAT 96
[2021-09-01] MEDS: ALBUTEROL 2.5 MG/3 ML NEB (ADULT) INH (07:53)
[2021-09-01 08:52] VITALS: BP 108/53; PULSE 72; RESP 14; TEMP 35.9; O2SAT 95
--- NOTE | 2021-09-01 09:53 | PC.NURSE ---
Pt is calm and cooperative and works well with all hospital staff. Inspite of confusion the Pt also uses call light appropriately.
[2021-09-01] MEDS: HEPARIN 5,000 UNIT/ML VIAL 5000 UNIT SUBCUT (10:31)
[2021-09-01] MEDS: ATORVASTATIN 20 MG TABLET PO (10:31)
[2021-09-01] MEDS: CALCIUM CARB/VIT D3 500/200 TABLET 1 EACH PO (10:31)
[2021-09-01] MEDS: METOPROLOL IR 50 MG TABLET 12.5 MG PO (10:31)
[2021-09-01] MEDS: MULTIVITAMIN 1 TABLET 1 TAB PO (10:31)
[2021-09-01] MEDS: ASPIRIN 81 MG CHEW TAB PO (10:31)
[2021-09-01] MEDS: SODIUM CHLORIDE 0.9% FLUSH 10 ML IV (10:36)
[2021-09-01 12:00] VITALS: BP 105/58; PULSE 95; RESP 14; TEMP 35.8; O2SAT 97
--- NOTE | 2021-09-01 12:04 | PT.IPTN ---
Current Diagnoses Calculus of kidney (08/28/21) Presence of urogenital implants (08/28/21) Surgery Performed Operation Date: 08/27/21 09:45 Actual Procedures p Cystoscopy - John Perez MD p Extracorporeal Shock Wave Lithotripsy(Right) - John Perez MD Physical Therapy Treatment Note M2 PT-IP Current Condition Start: 08/28/21 16:20 Freq: NEEDED Status: Active Protocol: Document 08/28/21 14:50 [facility] (Rec: 08/28/21 16:34 [facility] [id number]) Physical Therapy Current Condition Current Condition Evaluation Date 08/28/21 Treatment Diagnosis s/p cystoscopy and lithotripsy ; difficulty in walking Onset Date 08/27/21 M3 PT-IP Subjective Start: 08/28/21 16:20 Freq: NEEDED Status: Active Protocol: Document 09/01/21 11:49 [facility] (Rec: 09/01/21 14:15 [facility] [id number]) Subjective Physical Therapy Visit Type Type Treatment Note Visit Start Time 11:49 Visit Stop Time 12:04 Total Visit Minutes 15 Number of PROJECT ASSISTANT Visits 4 M4 PT-IP Mobility and Gait Start: 08/28/21 16:20 Freq: NEEDED Status: Active Protocol: Document 09/01/21 11:49 [facility] (Rec: 09/01/21 14:15 [facility] [id number]) PT-Bed Mobility Assessment Supine to Sit Supine to Sit Moderate Assistance,1 Person Assistance,Head of Bed Elevated,Bedrails Scooting Scooting to Edge of Bed Maximum Assistance PT-Transfer Assessment Sit to and From Stand Sit to and from Stand Moderate Assistance,1 Person Assistance,Use of Upper Extremities Equipment Transfer Assistive Device Gait Belt,Front Wheeled Walker Orthotic/Prosthetic Devices or Brace: No Transfers Transfer Destination Chair Transfer Technique Stand Step Pivot Transfer Ability Level of Assist Moderate Assistance,1 Person Assistance,Use of Upper Extremities Comments Mobility Comments Pt in bed upon arrival and agreeable to transfer to chair and ambulate. Mod A for sup<> Sit and max A for scooting EOB . Mod A and max cues for sit<> stand w/ FWW. Mod A for stand step pivot to chair. Pt w/ poor eccentric control when sitting. Mod A for sit<>Stand, pt then ambulated ~15 ft w/ FWW Mod A w/ chair follow. Pt w/ quick approach to fatigue and poor safety awareness during ambulation. Pt returned to chair and left in chair w/ alarm on and all needs in reach. Gait Assessment Gait Gait Assistance Required: Moderate Assistance,1 Person Assist Distance (Feet) 15 Assistive Devices Assistive Device Gait Belt,Front Wheeled Walker Gait Deviations General Gait Pattern Antalgic,Decreased Stride Length,Decreased Feet Clearance,Flexed Trunk,Lateral Trunk Lean Factors Limiting Gait Function Factors Limiting Gait Function Decreased Activity Tolerance, Decreased Strength,Pain,Poor Balance,Poor Safety Awareness Comments Gait Comments Unsafe to ambulate alone and needs chair follow while ambulating. Mod A and cues. Stair Climbing Assessment Comments Stair Climbing Comments Unable to assess due to weakness. PT-Balance Assessment Sitting Balance and Reactions Static Sitting Balance Ability Good Dynamic Sitting Balance Ability Fair Standing Balance and Reactions Static Standing Balance Ability Poor Dynamic Standing Balance Ability Poor Device Used FWW M5 PT-IP Objective Assessments Start: 08/28/21 16:20 Freq: NEEDED Status: Active Protocol: Document 08/28/21 14:50 [facility] (Rec: 08/28/21 16:34 [facility] [id number]) Orientation Orientation/Cognition Level of Alertness Confusional State Orientation Name Language Function Ability Hard of Hearing Safety Awareness Decreased Safety Awareness Memory Description Short Term Impaired,Mcfp Impaired Gross Range of Motion Lower Extremity ROM Assessment Within Functional Limits Strength Lower Extremity Strength Assessment Within Functional Limits Muscle Tone Muscle Tone WNL Yes M6 PT-IP Treatment Start: 08/28/21 16:20 Freq: NEEDED Status: Active Protocol: Document 09/01/21 11:49 [facility] (Rec: 09/01/21 14:15 [facility] [id number]) Physical Therapy Treatment Education Education Provided Safety M7 PT-IP Assessment and Plan Start: 08/28/21 16:20 Freq: NEEDED Status: Active Protocol: Document 09/01/21 11:49 [facility] (Rec: 09/01/21 14:15 [facility] [id number]) PT Summary Assessment and Plan Potential Rehabilitation Potential Good Status of Condition at Evaluation Evolving Summary Impairments Pain,ROM,Strength,Balance, Coordination,Sensation,Tone, Cognition,Bed Mobility, Transfers,Gait,Activity Tolerance Assessment Summary Pt continues to need Mod to Max A for bed mobility, Mod A for sit<>Stand and Mod A for ambulation. Max cues for all tasks. Pt needing 2PA and chair follow to ambulate for safety and only tolerating short distances. He will require SNF to improve functional mobility. Goals Bed Mobility Goal Minimal Assistance Transfer Goal Minimal Assistance,Front Wheeled Walker Gait Goal Minimal Assistance,Front Wheel Walker Gait Distance 50 Other Goals improve bed mobility, transfers using FWW and ambulation ~ 100 ft CGA up/down 4 steps B rails CGA Days to Meet Goals 10 Frequency of Treatment Frequency Of Treatment Once a Day Treatment Plan Physical Therapy Treatment Plan Bed Mobility Training,Transfer Training,Gait Training, Therapeutic Exercise,Balance Retraining,Post Op Education, Discharge Planning,Hot or Cold Pack,Neuromuscular Re-ed, Coordination Retraining,Manual Therapy Precautions Other Precautions falls Recommendations To Nursing Amount of Assist Needed 2 Person Assist Discharge Recommendations PT Discharge Recommendations SNF Rehab Transportation Needs at Discharge Wheelchair/Cabulance
--- NOTE | 2021-09-01 13:33 | PM.PN.1 ---
Subjective Subjective Interval history: Patient with advanced dementia, making meaningful history acquisition difficult. Exam Vital Signs (past 8 hours): - 09/01/21 07:53 09/01/21 08:52 Temperature 96.6 F L Pulse Rate 84 72 Respiratory Rate 18 14 Blood Pressure 108/53 L Pulse Oximetry 96 95 Oxygen Delivery Method Room Air Oxygen Flow Rate 0 Narrative Exam Narrative: Const Other: Patient sitting up in bed comfortably upon my entering the room, in no apparent acute distress Eyes Other: No scleral icterus appreciated Resp Other: Lungs clear to auscultation to anterior carrillo Cardio Other: RRR, with normal S1 and S2 heart sounds, no extra heart sounds or murmurs appreciated GI Other: Soft, non-distended, non-tender, bowel sounds present, no CVA tenderness elicited Skin Other: No grossly abnormal skin lesions noted Extrem Other: Palpable radial pulses bilaterally Objective Labs Result Diagrams: 08/30/21 03:40 08/30/21 03:40 PFSH Medical History (Updated 08/16/21 @ 12:54 by John Perez MD) Afib Alzheimer's disease Bilateral nephrolithiasis Bilateral ureteral calculi BPH w urinary obs/LUTS Chronic cough Congestive heart failure COPD (chronic obstructive pulmonary disease) Coronary heart disease Gross hematuria Heart attack History of migraine headaches 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) Hypercholesterolemia Left ureteral calculus MRSA (methicillin resistant Staphylococcus aureus) Renal calculus, right Renal colic on left side Retained ureteral stent Surgical History (Updated 08/22/21 @ 14:34 by Sandi Kellogg RN) H/O circumcision H/O vasectomy History of cataract extraction History of coronary artery stent placement History of incision and drainage History of knee replacement (1996) History of knee replacement (1999) History of urologic surgery (06/16/20) Hx of CABG (2010) Hx of cystoscopy (07/20/21) Family History Mother Cancer Sister Cancer Father Coronary artery disease Social History marital status: unmarried,single household members: family occupational status: previously employed Smoking Status: Former smoker alcohol intake: never caffeine: No Assessment & Plan Assessment & Plan narrative: Assessment: 1. Failed right ureteral stent removal, pending removal at [facility] 2. Recent left ureteral stent placement, July 2021 3. Advanced dementia, unknown type 4. Hypertension 5. BPH 6. Physicial debility/deconditioning, likely age-related Plan: 1. Patient has an appt on September [address] [facility] for likely percutaneous attempt at right ureteral stent removal. 2. Patient follows with urology, Dr. White. 3. Will continue home donepezil 10 mg nightly. 4. Will continue home Lopressor 12.5 mg bid. 5. Will continue home tamsulosin 0.8 mg nightly. 6. PT/OT recommends SNF, and pending placement. VTE prophylaxis: Heparin 5000 units bid Time Spent With Patient Critical Care time: I spent a total of [] minutes of critical care time on this patient's care today; this time is exclusive of procedural time. Quality VTE Deep Vein Thrombosis/Pulmonary Embolism Present on Admission: No
--- NOTE | 2021-09-01 13:36 | P.DS_ITS ---
History of Present Illness History of Present Illness Chief complaint: [facility] Narrative: ?THIS IS A PLEASANTLY DEMENTED 81-YEAR-OLD MALE ADMITTED TO THE HOSPITAL FOR STENT REMOVAL. ? PATIENT IS UNABLE TO PROVIDE A RELIABLE? HISTORY OR REVIEW OF SYSTEM DUE TO SIGNIFICANT DEMENTIA ?MOST OF THE HISTORY WAS TAKEN FROM SURGICAL NOTE WELL NURSING REPORT. ? PATIENT IS WITH HIS SISTER REPORTEDLY.? HOWEVER THIS STORY IS THAT HE HAD A LEFT STENT PLACEMENT ON .? DUE TO AND OBSTRUCTIVE? KIDNEY STONE.? THERE HAS BEEN NO COMPLICATIONS? OBSERVED FROM THAT PROCEDURE ?HOWEVER IT WAS NOTED THAT PATIENT HAS? ALSO HAD A STENT PLACED ON 06/16/2020.? THIS WAS DONE ON THE RIGHT AGAIN FOR DIFFERENT KIDNEY STONE. ? UNFORTUNATELY PATIENT DID NOT HAVE ANY APPROPRIATE FOLLOW-UP.? AND THE STENT HAD BEEN IN PLACE SINCE ? THEN ?PATIENT WAS BROUGHT BACK TO THE HOSPITAL TODAY AND THE SURGICAL TEAM ATTEMPTED TO REMOVE THE STENT. ?MULTIPLE MODALITIES? WILL USE AND ALL ATTEMPTS HAVE? FAILED SO FAR ?PATIENT HAS BEEN ADMITTED AND AT THE SURGICAL TEAM ATTEMPTING TO REACH OUT TO A TERTIARY FACILITY FOR TRANSFER ?PER THE SURGICAL TEAM, ? PATIENT WILL NEED A PERCUTANEOUS APPROACH TO REMOVE THE STENT ON THE RIGHT. ? HOSPITALIST HAS BEEN CALLED TO MANAGE PATIENT MEDICALLY WHILE ATTEMPTING TO TRANSFER. Written by admitting provider. Discharge Providers Provider Date of admission: 08/28/21 10:00 Discharge Date: 09/01/21 Primary care physician: Sol Leroy MD Consults: 08/27/21 14:38 Consult to Roofer Applicator Routine Comment: 08/27/21 14:39 Consult to Physical Therapy Evaluate & Treat Comment: Physician Instructions: Evaluate and Treat 08/27/21 17:58 Consult to Hospitalist Service Routine Comment: Consulting Provider: Minh Gilman Reason for consultation: post stent placement 08/27/21 19:27 Consult to Occupational Therapy Evaluate & Treat Comment: Physician Instructions: Evaluate and treat Consult to Physical Therapy Evaluate & Treat Comment: Physician Instructions: Evaluate and Treat Discharge provider: Azul Mccoy MD Summary Hospital Course Discharge Diagnosis: Assessment: 1. Failed right ureteral stent removal, pending removal at [facility] 2. Recent left ureteral stent placement, July 2021 3. Advanced dementia, unknown type 4. Hypertension 5. BPH 6. Physicial debility/deconditioning, likely age-related Plan: 1. Patient has an appt on September 18 at [facility] for likely percutaneous attempt at right ureteral stent removal. 2. Patient follows with urology, Dr. White. 3. Will continue home donepezil 10 mg nightly. 4. Will continue home Lopressor 12.5 mg bid. 5. Will continue home tamsulosin 0.8 mg nightly. 6. PT/OT recommends SNF, and pending placement. Exam Vital Signs (past 8 hours): - 09/01/21 07:53 09/01/21 08:52 Temperature 96.6 F L Pulse Rate 84 72 Respiratory Rate 18 14 Blood Pressure 108/53 L Pulse Oximetry 96 95 Oxygen Delivery Method Room Air Oxygen Flow Rate 0 Objective Labs Result Diagrams: 08/30/21 03:40 08/30/21 03:40 [facility] Medical History (Updated 08/16/21 @ 12:54 by John Perez MD) Afib Alzheimer's disease Bilateral nephrolithiasis Bilateral ureteral calculi BPH w urinary obs/LUTS Chronic cough Congestive heart failure COPD (chronic obstructive pulmonary disease) Coronary heart disease Gross hematuria Heart attack History of migraine headaches 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) Hypercholesterolemia Left ureteral calculus MRSA (methicillin resistant Staphylococcus aureus) Renal calculus, right Renal colic on left side Retained ureteral stent Surgical History (Updated 08/22/21 @ 14:34 by Sandi Kellogg RN) H/O circumcision H/O vasectomy History of cataract extraction History of coronary artery stent placement History of incision and drainage History of knee replacement (1996) History of knee replacement (1999) History of urologic surgery (06/16/20) Hx of CABG (2010) Hx of cystoscopy (07/20/21) Family History Mother Cancer Sister Cancer Father Coronary artery disease Social History marital status: unmarried,single household members: family occupational status: previously employed Smoking Status: Former smoker alcohol intake: never caffeine: No Discharge Assessment & Plan Assessment and Plan Assessment: Assessment: 1. Failed right ureteral stent removal, pending removal at [facility] 2. Recent left ureteral stent placement, July 2021 3. Advanced dementia, unknown type 4. Hypertension 5. BPH 6. Physicial debility/deconditioning, likely age-related Plan: 1. Patient has an appt on September 18 at [facility] for likely percutaneous attempt at right ureteral stent removal. 2. Patient follows with urology, Dr. White. 3. Will continue home donepezil 10 mg nightly. 4. Will continue home Lopressor 12.5 mg bid. 5. Will continue home tamsulosin 0.8 mg nightly. 6. PT/OT recommends SNF, and pending placement. Discharge Plan Discharge Plan Patient Disposition: Home Provider Discharge Comment: Contact Urology Clinic 08/28/2021 to schedule follow-up appointments. Nursing Discharge Comment: You had tylenol 1,000mg IV at 1054 Oxycodone 5mg at 1:44 pm B&O Suppository at 12:23 Discharge orders & Medications Prescriptions: New oxycodone 5 mg tablet 5 mg PO Q4H PRN (Reason: pain) Qty: 10 0RF Continued metoprolol tartrate 50 mg Tablet 12.5 mg PO BID 0RF tamsulosin [Flomax] 0.4 mg capsule 0.8 mg PO BEDTIME 0RF atorvastatin [Lipitor] 20 mg tablet 20 mg PO DAILY 0RF donepezil 10 mg tablet 10 mg PO QPM 0RF Advair HFA 230-21 mcg/actuation HFA aerosol inhaler 2 puff inhalation BID PRN (Reason: Cough) 0RF multivitamin [Daily Multi-Vitamin] Tablet 1 tab PO DAILY 0RF aspirin 81 mg tablet,chewable 81 mg PO DAILY 0RF calcium carbonate-vitamin D3 500mg (1,250mg) -600 unit tablet 1 tab PO DAILY 0RF Medication counseling provided by Pharmacist: Yes Follow up/Referrals: Sol Leroy MD [Primary Care Provider] - Diet/Activity/Treatments Diet: Diet as Tolerated Catheter: 2-way Katz Skin/Wound/Dressing Care Report to your healthcare provider any signs of infection, such as:: chills, fever, night sweats, increased pain and unusual drainage Visit Report/Discharge Packet Instructions: How to Care for Your Katz Catheter -- Male, DI for Cystoscopy, DI for Extracorporeal Shock Wave Lithotripsy Stand Alone Forms: Surgery Discharge Discharge Data Primary Care Provider: Sol Leroy Attending Provider: John Perez VTE Deep Vein Thrombosis/Pulmonary Embolism Present on Admission: No
--- NOTE | 2021-09-01 15:03 | CM.DPNOTE ---
Addendum entered by MAHNAZ Peguero 09/01/21 15:43: ADD: Not a resumption of HH services, this is a new order. faxed [facility] new HH order, F2F, H+P and signed DC Summary, Jo confirms he will f/u w/family re HH availability JW Original Note: DC Note Placement efforts towards SNF continued this morning as [facility] declined but [facility] was considering for private payment, COVID waiver not appropriate Reviewed w/patient's sister Urvashi and she expressed great concern and agitation. Urvashi explained that former hospitalist had told her your brother will not be discharged until Friday, and will be an inpatient. Provided numbers for product development director [employer]os[employer] Burnette and fisheries manager and Risk Elizabeth Gill per family's request. This CLAIMS ANALYST apologized for any miscommunication and misconception, as of today 09.01.21, patient remains in observation status, and the barrier to discharge has not been medical stability, but rather difficulty in securing a SNF to accept patient. Barriers: Patient has had two C19 Vaccinations and has not been boosted, which SNFs consider not fully vaccinated requiring a newly admitted patient to quarantine for at least 7 days in a private room. D/t patient's dementia, being behind closed doors without close monitoring is considers a risky endeavor. Sister states understanding. Discussed private payment at [facility] and sister keshawnantly declines. Sister states she will come pick patient up and requests this CLAIMS ANALYST alert [facility] that patient will be coming home today Updated BLANCA Luu and Dr Mccoy, priority board will be completed by CAITLIN Altman. Placed call to Jo PURVIS, had to . Also updated Keshawn, covering at [facility] Plan: DC home w/family today via pov, resumption of [facility] services MAHNAZ Justin
== END 2021-09-01 15:49 | disposition home or self-care (01) ==
LOC: OR 11:05 → AC 11:05
PROVIDERS: Admitting Provider Hospitalist; Family Provider Student in an Organized Health Care Education/Training Program; PCP Family Medicine; Referring Provider Specialist; Visit Provider Specialist
PROC: (CPT 50590; principal; 2021-08-27 09:45)
PROC: (CPT 50590; 2021-08-27 09:45)
DX: N20.0 Calculus of kidney (principal); Z96.0 Presence of urogenital implants; I25.10 Atherosclerotic heart disease of native coronary artery without angina pectoris; I10 Essential (primary) hypertension; E78.5 Hyperlipidemia, unspecified; N40.0 Benign prostatic hyperplasia without lower urinary tract symptoms; F03.90 Unspecified dementia, unspecified severity, without behavioral disturbance, psychotic disturbance, mood disturbance, and anxiety; R53.81 Other malaise
CPT/HCPCS: 50590; 52315; 36415; 74018; 80053; 82962; 83735; 84100; 85025; 87635; 94640; 94762; 97116; 97162; 97166; 97530; 97535; C9803; G0378; J0131; J0690; J1644; J2405; J2704; J3010; J7613

== ENCOUNTER 2021-09-12 10:55 | Emergency (ER) | payer MEDICARE, BC, SELFPAY ==
[2021-08-27 17:09] VITALS: BMI 29.5
[2021-09-12] VITALS (11 sets, daily range): BP systolic 140–152; BP diastolic 63–74; PULSE 102–134; RESP 18–28; TEMP 37.8–38.3; O2SAT 95–99; BMI 29.6
--- NOTE | 2021-09-12 11:04 | ED_ITS ---
HPI - General Adult General Chief complaint: Fever Stated complaint: Place a pic line Time Seen by Provider: 09/12/21 11:02 Source: patient and other (Dr. Elliott Palomares from [facility] yesterday, Amira from facility) History of Present Illness HPI narrative: This is an 81-year-old male with known history of dementia who presents for PICC line placement I was contacted on the by physician at [facility] were patient has been being treated with IV antibiotics. They have [facility] a [facility] facility for him but he needs a PICC line placed before they will accept him. Plan is for patient to go likely to the penitentiary we discussed it could be set up as an outpatient but we are the backup option if that is not available. skilled nursing called me today to ask patient does not have an outpatient appointment scheduled we contacted PICC line nurse who is available to place a PICC line today so patient was directed to come through the emergency department. Related Data Home Medications Medication Instructions Recorded Confirmed aspirin 81 mg chewable tablet 81 mg PO DAILY 03/16/20 08/27/21 atorvastatin 20 mg tablet (Lipitor) 20 mg PO DAILY 03/16/20 08/27/21 calcium carbonate 500 mg-vitamin 1 tab PO DAILY 03/16/20 08/27/21 D3 15 mcg (600 unit) tablet donepezil 10 mg tablet 10 mg PO QPM 03/16/20 08/27/21 fluticasone propionate 230 2 puff inhalation BID PRN Cough 03/16/20 08/27/21 mcg-salmeterol 21 mcg/actuation HFA inhaler (Advair HFA) multivitamin (Daily Multi-Vitamin) 1 tab PO DAILY 03/16/20 08/27/21 tamsulosin 0.4 mg capsule (Flomax) 0.8 mg PO BEDTIME 03/16/20 08/27/21 metoprolol tartrate 50 mg tablet 12.5 mg PO BID 06/16/20 08/27/21 Previous Rx's Medication Instructions Recorded oxycodone 5 mg tablet 5 mg PO Q4H PRN pain #10 tabs 08/27/21 Allergies Allergy/AdvReac Type Severity Reaction Status Date / Time lisinopril AdvReac Mild Light-heade Verified 08/27/21 08:18 d/Dizzy shellfish derived AdvReac Mild Nausea & Verified 08/27/21 08:18 Sweat Review of Systems Review of Systems ROS Unobtainable: All systems reviewed & are unremarkable except as noted in HPI and below 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) Hypercholesterolemia Left ureteral calculus MRSA (methicillin resistant Staphylococcus aureus) Renal calculus, right Renal colic on left side Retained ureteral stent Surgical History H/O circumcision H/O vasectomy History of cataract extraction History of coronary artery stent placement History of incision and drainage History of knee replacement (1996) History of knee replacement (1999) History of urologic surgery (06/16/20) Hx of CABG (2010) Hx of cystoscopy (07/20/21) Family History Mother Cancer Sister Cancer Father Coronary artery disease Social History marital status: unmarried,single household members: family occupational status: previously employed Smoking Status: Former smoker alcohol intake: never caffeine: No Smoking Status: Former smoker alcohol intake frequency: holidays/special occasions only Substance Use Type: does not use Exam Narrative Exam Narrative: GEN: Elderly appearing male, alert and confused, patient appears to be in mild distress. Patient is warm to touch. HEENT: Atraumatic, pupils are equal round reactive to light, extraocular movements are intact, nares are clear, TMs are clear with no fluid, there is no conjunctival pallor. Throat is clear without any exudates, erythema, tonsillar enlargement or uvular deviation, no facial droop. HEART: Regular rate and rhythm without murmur, clicks, rubs. LUNGS:Lungs clear to auscultation, no wheezes, rales, crackles, chest moves symmetrically ABD:bowel sounds normal, soft, non-tender, no guarding, rebound, rigidity, no masses noted, no hepatosplenomegaly :No CVA tenderness MSCL: Non-tender, no muscle atrophy, full range of motion of all 4 extremities. NEURO:CN 2-12 intact, sensation normal SKIN: No rash, erythema or other skin changes noted Initial Vital Signs Initial Vital Signs: Vital Signs Temperature 100.1 F H 09/12/21 11:34 Pulse Rate 102 H 09/12/21 11:34 Respiratory Rate 20 09/12/21 11:34 Blood Pressure 145/63 H 09/12/21 11:34 Pulse Oximetry 99 09/12/21 11:34 Oxygen Delivery Method 09/12/21 11:34 Course Orders Ordered: Discontinued Medications Acetaminophen (Acetaminophen 325 Mg Tablet) 975 mg PO NOW ONE Stop: 09/12/21 12:25 Last Admin: 09/12/21 12:38 Dose: 975 mg Documented By: ADRIENNE Diltiazem HCl (Diltiazem 5 Mg/Ml Sdv) 10 mg IV NOW ONE Stop: 09/12/21 13:16 Last Admin: 09/12/21 13:42 Dose: Not Given Documented By: DARRELL Sodium Chloride (Normal Saline 0.9%) 1,000 mls @ 1,000 mls/hr IV BOLUS ONE Stop: 09/12/21 12:40 Last Admin: 09/12/21 11:44 Dose: Not Given Documented By: ABNER Sodium Chloride (Normal Saline 0.9%) 500 mls @ 1,000 mls/hr IV BOLUS ONE Stop: 09/12/21 12:11 Last Infusion: 09/12/21 12:42 Dose: 0 mls/hr Documented By: Admin: 09/12/21 11:51 Dose: 1,000 mls/hr Documented By: ABNER Metoprolol Tartrate (Metoprolol Tartrate 5 Mg/5 Ml Inj) 5 mg IV NOW ONE Stop: 09/12/21 13:24 Last Admin: 09/12/21 13:36 Dose: 5 mg Documented By: DARRELL Vital Signs Vital signs: Vital Signs - 8 hr 09/12/21 12:30 09/12/21 12:34 09/12/21 12:38 Temperature 101 F H Pulse Rate 112 H 117 H Respiratory Rate Blood Pressure 140/73 Pulse Oximetry 99 97 09/12/21 13:00 09/12/21 13:30 09/12/21 14:00 Temperature Pulse Rate 120 H 123 H 119 H Respiratory Rate 18 27 H 28 H Blood Pressure 144/72 H 146/64 H 145/74 H Pulse Oximetry 98 96 95 09/12/21 14:30 09/12/21 14:31 Temperature Pulse Rate 111 H 128 H Respiratory Rate 26 H 25 H Blood Pressure 152/64 H Pulse Oximetry Medical Decision Making Lab Data Result diagrams: 09/12/21 11:30 09/12/21 11:30 Labs: Lab Results 09/12/21 09/12/21 09/12/21 Range/Units 11:30 11:30 11:30 WBC 6.0 (4.5-11.0) X10^3/uL RBC 3.72 L (4.5-5.9) X10^6/uL Hgb 11.6 L (13.5-17.5) g/dL Hct 34.8 L (41-53) % MCV 93.6 (80-100) fL MCH 31.3 (26-34) PG MCHC 33.5 (30-36) % RDW 13.7 (11.6-14.8) % Plt Count 231 (150-400) X10^3/uL Neut % (Auto) 87.6 H (50-75) % Lymph % (Auto) 7.4 L (25-40) % [place] % (Auto) 3.3 (3-14) % Eos % (Auto) 1.5 L (2-4) % Baso % (Auto) 0.2 (0-2) % Neut # (Auto) 5300 (6373-2387) /uL Lymph # (Auto) 400 L (3329-5816) /uL [place] # (Auto) 200 (0-900) /uL Eos # (Auto) 100 (0-450) /uL Baso # (Auto) 0 (0-100) /uL Sodium 139 (137-145) mmol/L Potassium 3.6 (3.4-5.1) mmol/L Chloride 109 H (98-107) mmol/L Carbon Dioxide 25 (22-32) mmol/L BUN 7 L (9-20) mg/dL Creatinine 0.68 (0.66-1.25) mg/dL Estimated GFR > 60 (>60) mL/min BUN/Creatinine Ratio 10.3 (6-22) Glucose 116 H (80-110) mg/dL Lactate 2.8 H (0.7-2.1) mmol/L Calcium 7.2 L (8.4-10.2) mg/dL Total Bilirubin 0.8 (0.2-1.3) mg/dL AST 27 (17-59) IU/L ALT 19 (<50) IU/L Alkaline Phosphatase 88 (38-126) U/L Total Protein 5.4 L (6.3-8.2) g/dL Albumin 2.7 L (3.5-5.0) g/dL Globulin 2.7 (1.7-4.1) g/dL Albumin/Globulin Ratio 1.0 (1.0-2.8) Lipase 523 H (23-300) U/L Procalcitonin 0.05 (<0.5) ng/mL Urine Color Urine Appearance Urine pH (4.5-8.0) Ur Specific [place] (1.000-1.035) Urine Protein (Negative) Urine Glucose (UA) (Negative) g/dL Urine Ketones (NEGATIVE) Urine Occult Blood (Negative) Urine Nitrate (Negative) Urine Bilirubin (NEGATIVE) Urine Urobilinogen (0.2) E.U./dL Ur Leukocyte Esterase (NEGATIVE) Urine RBC (0-5/HPF) Urine WBC (0-5/HPF) Amorphous Sediment Urine Bacteria (None) Ur Culture Indicated? 09/12/21 09/12/21 Range/Units 11:46 14:04 WBC (4.5-11.0) X10^3/uL RBC (4.5-5.9) X10^6/uL Hgb (13.5-17.5) g/dL Hct (41-53) % MCV (80-100) fL MCH (26-34) PG MCHC (30-36) % RDW (11.6-14.8) % Plt Count (150-400) X10^3/uL Neut % (Auto) (50-75) % Lymph % (Auto) (25-40) % [place] % (Auto) (3-14) % Eos % (Auto) (2-4) % Baso % (Auto) (0-2) % Neut # (Auto) (5160-6205) /uL Lymph # (Auto) (3998-6370) /uL [place] # (Auto) (0-900) /uL Eos # (Auto) (0-450) /uL Baso # (Auto) (0-100) /uL Sodium (137-145) mmol/L Potassium (3.4-5.1) mmol/L Chloride (98-107) mmol/L Carbon Dioxide (22-32) mmol/L BUN (9-20) mg/dL Creatinine (0.66-1.25) mg/dL Estimated GFR (>60) mL/min BUN/Creatinine Ratio (6-22) Glucose (80-110) mg/dL Lactate 1.2 (0.7-2.1) mmol/L Calcium (8.4-10.2) mg/dL Total Bilirubin (0.2-1.3) mg/dL AST (17-59) IU/L ALT (<50) IU/L Alkaline Phosphatase (38-126) U/L Total Protein (6.3-8.2) g/dL Albumin (3.5-5.0) g/dL Globulin (1.7-4.1) g/dL Albumin/Globulin Ratio (1.0-2.8) Lipase (23-300) U/L Procalcitonin (<0.5) ng/mL Urine Color Yellow Urine Appearance Sl cloudy Urine pH 5.0 (4.5-8.0) Ur Specific [place] 1.025 (1.000-1.035) Urine Protein 2+ H (Negative) Urine Glucose (UA) Negative (Negative) g/dL Urine Ketones Negative (NEGATIVE) Urine Occult Blood 3+ H (Negative) Urine Nitrate Negative (Negative) Urine Bilirubin Negative (NEGATIVE) Urine Urobilinogen 0.2 (0.2) E.U./dL Ur Leukocyte Esterase 2+ H (NEGATIVE) Urine RBC >100/hpf H (0-5/HPF) Urine WBC 10-30/hpf H (0-5/HPF) Amorphous Sediment 1+ Urine Bacteria Many (>30) H (None) Ur Culture Indicated? Specimen cultured Imaging Data Chest x-ray: Radiologist's Impression: [address] [address] XRay Report Signed Patient: Rodolfo Hawthorne MR#: [id number] : 1940 Acct:[id number] Age/Sex: 81 / M Date of Service: 09/12/21 Loc: ED Accession Number: [id number] ?? Procedure: XR chest for PICC 1V Ordering Provider: Kasey Fields D.O. PROCEDURE:? XR CHEST FOR PICC 1V ? INDICATIONS:? picc placement ? COMPARISON:? None. ? FINDINGS:? PICC was placed by the intravenous therapy team from the left side.? Fluoroscopic spot film demonstrates the tip of PICC projecting to the area of mid SVC ? IMPRESSION:? Tip of PICC projects to the area of mid SVC. ? ? Dictated by: Antoinette Preciado MD, PhD on 09/12/2021 at 12:27 ? ? Approved by: Antoinette Preciado MD, PhD on 09/12/2021 at 12:28?? ECG Data Attestation: I personally reviewed and interpreted this ECG as follows: Prior ECG tracings: available for review Interpretation: AFib with RVR rate of 108 QRS [address]TC [address] No acute [address] elevation or depression. Patient has prior EKG from 10/25/2013 which shows a sinus rhythm patient does have ST changes today but no acute elevation, Q-wave is present in lead 3. Patient was not in atrial fibrillation at that time. MDM Narrative Medical decision making narrative: This is an 81 year old male with known resistant UTI from [place]. Patient just transferred to a facility here in [place] and I had been contacted the day before that he needed a PICC line placed shortly this was not arranged as an outpatient and patient was sent to the emergency department. Patient was found to be febrile, family states that yesterday he was walking at [facility] and was way too weak for that today. Sepsis labs but not full fluids were initiated. Patient has a known source with ESBL cystitis and is currently on are dependent been getting it daily including today. No other source was found. His family who is at bedside states he also had COVID booster yesterday and had a pretty significant reaction to that in terms of weakness and immune response. Discussed with family unclear if his fever today is related to his cystitis verses booster reaction. His lactate was elevated but improved with Tylenol and fluid. His other labs do not show major alterations. His PICC line has been placed is working appropriately and at this time feels appropriate to return back to his facility as they will continue with antibiotics and is not requiring Services they cannot provide. His sister who is caregiver until he went into the hospital feels comfortable with this plan all questions answered. We did discuss if something is worsening or seems inappropriate to return for recheck in the ER. Discharge Plan Departure Patient Disposition: Home Clinical Impression: Status post peripherally inserted central catheter (PICC) central line placement, Cystitis Activity Restrictions/Additional Instructions: Your PICC line was placed today and is working properly. Your labs today do not show major changes but your lactate was initially elevat ed and improved in the department. As discussed with your sister your fever today could be secondary to your bladder infection or could be secondary to receiving your COVID booster yesterday as she noted that you had a significant reaction on her 2nd COVID shot. You may continue to treat fevers with Tylenol every 6 hours as needed. Please return for worsening symptoms, new or worsening abdominal, back flank pain, persistent vomiting, inability urinate, chest pain or shortness of breath, passing out or other new or concerning changes. Prescriptions: No Action metoprolol tartrate 50 mg Tablet 12.5 mg PO BID oxycodone 5 mg tablet 5 mg PO Q4H PRN (Reason: pain) Qty: 10 0RF tamsulosin [Flomax] 0.4 mg capsule 0.8 mg PO BEDTIME atorvastatin [Lipitor] 20 mg tablet 20 mg PO DAILY donepezil 10 mg tablet 10 mg PO QPM Advair HFA 230-21 mcg/actuation HFA aerosol inhaler 2 puff inhalation BID PRN (Reason: Cough) multivitamin [Daily Multi-Vitamin] Tablet 1 tab PO DAILY aspirin 81 mg tablet,chewable 81 mg PO DAILY calcium carbonate-vitamin D3 500mg (1,250mg) -600 unit tablet 1 tab PO DAILY Referrals: Sol Leroy MD [Primary Care Provider] - Visit Report Forms: Patient Portal/API
--- NOTE | 2021-09-12 11:48 | PC.NURSE ---
Urine taken from top port of ratliff for urinalysis, microscopic, and culture. It is yellow and cloudy.
[2021-09-12 11:50] LABS: Add Manual Diff / Slide Review NO; Basophils Absolute Auto 0 /uL (0-100); Basophils Percent Auto 0.2 % (0-2); Eosinophils Absolute Auto 100 /uL (0-450); Eosinophils Percent Auto 1.5 % (2-4); Hematocrit 34.8 % (41-53); Hemoglobin 11.6 g/dL (13.5-17.5); Lymphocytes Absolute Auto 400 /uL (1100-4500); Lymphocytes Percent Auto 7.4 % (25-40); Mean Corpuscular HGB Conc 33.5 % (30-36); Mean Corpuscular Hemoglobin 31.3 PG (26-34); Mean Corpuscular Volume 93.6 fL (80-100); Monocytes Absolute Auto 200 /uL (0-900); Monocytes Percent Auto 3.3 % (3-14); Neutrophils Absolute Auto 5300 /uL (1500-7000); Neutrophils Percent Auto 87.6 % (50-75); Platelet Count 231 X10^3/uL (150-400); Red Blood Cell Count 3.72 X10^6/uL (4.5-5.9); Red Cell Distribution Width 13.7 % (11.6-14.8)
[2021-09-12] MEDS: SODIUM CHLORIDE 0.9% 500 ML 1000 ML IV (11:51)
[2021-09-12 11:52] LABS: Appearance Urine UA SL CLOUDY; Bilirubin Urine UA NEGATIVE (NEGATIVE); Color Urine UA YELLOW; Glucose Urine UA NEGATIVE (Negative); Ketones Urine UA NEGATIVE (NEGATIVE); Leukocyte Esterase Urine UA 2+ (NEGATIVE); Nitrite Urine UA NEGATIVE (Negative); Occult Blood Urine UA 3+ (Negative); Protein Urine UA 2+ (Negative); Specific Gravity Urine UA 1.025 (1.000-1.035); Urobilinogen Urine UA 0.2 E.U./dL (0.2)
[2021-09-12 11:56] LABS: Lactate (Lactic Acid) 2.8 mmol/L (0.7-2.1)
[2021-09-12 11:57] LABS: Alanine Aminotransferase 19 IU/L (<50); Albumin 2.7 g/dL (3.5-5.0); Alkaline Phosphatase 88 U/L (38-126); Aspartate Aminotransferase 27 IU/L (17-59); BUN Creatinine Ratio 10.3 (6-22); Bilirubin Total 0.8 mg/dL (0.2-1.3); Blood Urea Nitrogen 7 mg/dL (9-20); Calcium 7.2 mg/dL (8.4-10.2); Carbon Dioxide 25 mmol/L (22-32); Chloride 109 mmol/L (98-107); Estimated Glomerular Filt Rate > 60 mL/min (>60); Globulin 2.7 g/dL (1.7-4.1); Glucose 116 mg/dL (80-110); HEMOLYSIS 22 (0-50); Lipase 523 U/L (23-300); Potassium 3.6 mmol/L (3.4-5.1); Sodium 139 mmol/L (137-145); Total Protein 5.4 g/dL (6.3-8.2)
[2021-09-12 12:00] LABS: RBC Urine >100/HPF (0-5/HPF); WBC Urine 10-30/HPF (0-5/HPF)
[2021-09-12 12:01] LABS: Amorphous Sediment Urine 1+; Bacteria Urine Many (>30); Culture Indicated Urine Specimen Cultured
[2021-09-12 12:14] LABS: Procalcitonin 0.05 ng/mL (<0.5)
--- NOTE | 2021-09-12 12:15 | DI.RAD.S_ITS ---
PROCEDURE: XR CHEST FOR PICC 1V INDICATIONS: picc placement COMPARISON: None. FINDINGS: PICC was placed by the intravenous therapy team from the left side. Fluoroscopic spot film demonstrates the tip of PICC projecting to the area of mid SVC IMPRESSION: Tip of PICC projects to the area of mid SVC. Dictated by: Antoinette Preciado MD, PhD on 09/12/2021 at 12:27 Approved by: Antoinette Preciado MD, PhD on 09/12/2021 at 12:28
--- NOTE | 2021-09-12 12:26 | PC.NURSE ---
Pt's sister noted that pt is more altered today and unable to ambulate. arrives febrile and tachycardic. NAVNEET RN Jaqueline Spann in room for PICC line placement. PICC needed for placement [facility] to receive ABX for recent urologic stent removal. Pt arrives with [place] and sample obtained and sent to lab.
[2021-09-12] MEDS: ACETAMINOPHEN 325 MG TABLET 975 MG PO (12:38)
[2021-09-12] MEDS: METOPROLOL TARTRATE 5 MG/5 ML INJ IV (13:36)
[2021-09-12 13:48] LABS: Reflexed Lactate in 2 Hours Y
[2021-09-12 14:25] LABS: Lactate 2HR (Lactic Acid Rflx) 1.2 mmol/L (0.7-2.1)
== END 2021-09-12 15:20 | disposition home or self-care (01) ==
PROVIDERS: Emergency Provider Emergency Medicine; Family Provider Student in an Organized Health Care Education/Training Program; PCP Family Medicine
DX: R50.9 Fever, unspecified (principal); N30.90 Cystitis, unspecified without hematuria; I48.91 Unspecified atrial fibrillation; R03.0 Elevated blood-pressure reading, without diagnosis of hypertension
CPT/HCPCS: 36415; 80053; 81001; 83605; 83690; 84145; 85025; 87040; 87086; 93005; 93010; 96374; 99284

== ENCOUNTER 2021-09-21 14:31 | Emergency (ER) | payer MEDICARE, BC, SELFPAY ==
[2021-08-27 17:09] VITALS: BMI 29.5
[2021-09-21] VITALS (23 sets, daily range): BP systolic 105–133; BP diastolic 57–84; PULSE 85–119; RESP 16–29; TEMP 36.6; O2SAT 92–98
--- NOTE | 2021-09-21 14:51 | DI.RAD.S_ITS ---
PROCEDURE: XR KUB INDICATIONS: guidewire from catheter stuck, hx of ureteral stent. TECHNIQUE: One view of the abdomen acquired. COMPARISON: [facility], RG, CT ABDOMEN/PELVIS WITHOUT CONTRAST, 08/10/2021, 15:14. [facility], CR, XR KUB, 08/27/2021, 8:14. [facility], CR, XR KUB, 07/20/2021, 7:38. FINDINGS: Surgical changes and devices: 2 right ureteral stents. Left ureteral stent. Post median sternotomy. IVC filter. Wire projecting over the pelvis. Bowel: Bowel gas pattern is normal. Soft tissues: Calcification in the right kidney measuring 1.8 cm. No suspicious abdominal calcifications. Visualized solid organ contours appear normal in size. Vascular calcifications. Lung bases are clear. Bones: No suspicious bony lesions. In stage left hip DJD. IMPRESSION: Wire projecting over the pelvis. 2 right ureteral stents and 1 left ureteral stent. Dictated by: Rocky Perry M.D. on 09/21/2021 at 15:21 Approved by: Rocky Perry M.D. on 09/21/2021 at 15:24
--- NOTE | 2021-09-21 14:54 | ED.MALEGU ---
HPI - Male Genitourinary <Kasey Fields DO - Last Filed: 09/22/21 21:06> General Chief complaint: Urogenital-Male Stated complaint: guide wire stayed in when cath pulled. Time Seen by Provider: 09/21/21 14:44 Source: patient History of Present Illness HPI Narrative: This is 81-year-old male who had his urinary catheter pulled at his care facility today and there appears to be a guidewire that is stuck and did not come out with a catheter. Patient had a catheter placed at outside facilities I do not have notes as to whether the guidewire stuck before and was a known issue. Patient does have pain at the urethral opening where there is a small amount of abrasion. He denies abdominal pain, back or flank pain. He does have a history of dementia and was actually seen by myself for PICC line placement after being transfer from [place] to 1 of the local fdc facilities. Patient has been receiving IV antibiotics for cystitis and had ureteral stent in place per report of family. No known fevers, no complaint of chest pain or shortness of breath currently. No reported vomiting. No issues with bowel movements. Related Data Home Medications Medication Instructions Recorded Confirmed aspirin 81 mg chewable tablet 81 mg PO DAILY 03/16/20 08/27/21 atorvastatin 20 mg tablet (Lipitor) 20 mg PO DAILY 03/16/20 08/27/21 calcium carbonate 500 mg-vitamin 1 tab PO DAILY 03/16/20 08/27/21 D3 15 mcg (600 unit) tablet donepezil 10 mg tablet 10 mg PO QPM 03/16/20 08/27/21 fluticasone propionate 230 2 puff inhalation BID PRN Cough 03/16/20 08/27/21 mcg-salmeterol 21 mcg/actuation HFA inhaler (Advair HFA) multivitamin (Daily Multi-Vitamin 1 tab PO DAILY 03/16/20 08/27/21 tablet) tamsulosin 0.4 mg capsule (Flomax) 0.8 mg PO BEDTIME 03/16/20 08/27/21 metoprolol tartrate 50 mg tablet 12.5 mg PO BID 06/16/20 08/27/21 Previous Rx's Medication Instructions Recorded oxycodone 5 mg tablet 5 mg PO Q4H PRN pain #10 tabs 08/27/21 Allergies Allergy/AdvReac Type Severity Reaction Status Date / Time lisinopril AdvReac Mild Light-heade Verified 08/27/21 08:18 d/Dizzy shellfish derived AdvReac Mild Nausea & Verified 08/27/21 08:18 Sweat Review of Systems <Kasey Fields DO - Last Filed: 09/22/21 21:06> Review of Systems ROS Unobtainable: All systems reviewed & are unremarkable except as noted in HPI and below (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) Patient History <Kasey Fields DO - Last Filed: 09/22/21 21:06> Medical History Afib Alzheimer's disease Bilateral nephrolithiasis Bilateral ureteral calculi BPH w urinary obs/LUTS Chronic cough Congestive heart failure COPD (chronic obstructive pulmonary disease) Coronary heart disease Gross hematuria Heart attack History of migraine headaches 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) Hypercholesterolemia Left ureteral calculus MRSA (methicillin resistant Staphylococcus aureus) Renal calculus, right Renal colic on left side Retained ureteral stent Surgical History H/O circumcision H/O vasectomy History of cataract extraction History of coronary artery stent placement History of incision and drainage History of knee replacement (1996) History of knee replacement (1999) History of urologic surgery (06/16/20) Hx of CABG (2010) Hx of cystoscopy (07/20/21) Family History Mother Cancer Sister Cancer Father Coronary artery disease Social History marital status: unmarried,single household members: family occupational status: previously employed Smoking Status: Former smoker alcohol intake: never caffeine: No Smoking Status: Former smoker alcohol intake frequency: holidays/special occasions only Substance Use Type: does not use Exam <Kasey Fields DO - Last Filed: 09/22/21 21:06> Narrative Exam Narrative: GENERAL: Alert, elderly male in mild distress HEENT: Head normocephalic, atraumatic, EOMI, pupils reactive, face symmetric, moist mucous membranes NECK: Supple, full range of motion CARDIOVASCULAR: Regular rate and rhythm without murmurs, rubs or gallops. RESPIRATORY: Breath sounds equal bilaterally, no wheezes rales or rhonchi. ABDOMEN: Soft, nontender. Normoactive bowel sounds all 4 quadrants. No guarding or rebound, rigidity, no mass : No CVA tenderness. Male: normal external examination except for a guidewire with what appears to be a plastic catheter for measurements with the distal end of the guidewire. Gentle but firm pressure was applied and there is no give or movement. Patient does have a small area of excoriation at the urethral opening and indicates that this locally is painful,, no penile discharge or lesions, testicles non-tender, cremasteric reflex intact, no inguinal hernias noted. EXTREMITIES: Normal range of motion, no clubbing or edema. Neurovascularly intact NEUROLOGICAL: Cranial nerves II through XII grossly intact. Moving all extremities SKIN: Warm, dry, no petechiae, no rashes or lesions. Initial Vital Signs Initial Vital Signs: Vital Signs Blood Pressure 131/84 09/21/21 14:34 <Janelle Marie, DO - Last Filed: 09/23/21 04:43> Initial Vital Signs Initial Vital Signs: Vital Signs Blood Pressure 131/84 09/21/21 14:34 <Christopher Du, DO - Last Filed: 09/21/21 22:57> Initial Vital Signs Initial Vital Signs: Vital Signs Blood Pressure 131/84 09/21/21 14:34 Course <Kasey Fields, DO - Last Filed: 09/22/21 21:06> Orders Ordered: Discontinued Medications Atorvastatin Calcium (Atorvastatin 20 Mg Tablet) 20 mg PO DAILY [facility] Last Admin: 09/21/21 21:07 Dose: 20 mg Documented By: CHELSY Sodium Chloride (Normal Saline 0.9%) 1,000 mls @ 125 mls/hr IV CONT [facility] Last Admin: 09/21/21 21:08 Dose: 125 mls/hr Documented By: CHELSY Ceftriaxone Sodium 1,000 mg/ (Sodium Chloride) 100 mls @ 200 mls/hr IV NOW ONE Stop: 09/21/21 21:33 Last Infusion: 09/21/21 23:01 Dose: 0 mls/hr Documented By: Admin: 09/21/21 22:11 Dose: 200 mls/hr Documented By: CHELSY Lidocaine HCl (Lidocaine 2% (Glydo) 6 Ml Gel) 6 ml TOP NOW ONE Stop: 09/21/21 14:52 Last Admin: 09/21/21 15:01 Dose: 6 ml Documented By: AB Metoprolol Tartrate (Metoprolol Ir 25 Mg Tablet) 12.5 mg PO BID TRISTAN Last Admin: 09/21/21 21:07 Dose: 12.5 mg Documented By: CHELSY Oxycodone HCl (Oxycodone Ir 5 Mg Tablet) 5 mg PO Q6H PRN PRN Reason: pain Last Admin: 09/21/21 21:16 Dose: 5 mg Documented By: CHELSY Consultations Consultation #1: Dr. Ervin, urology [facility]. Recommends continue to monitor patient's able to pass urine does not have a a catheter emergently. If he is unable to pass urine can slide a 14 or 16 gauge catheter alongside the guidewire as normally but very to the hub and plate balloon a pullback. If unsuccessful or patient is still not able to pass urine will need to move transfer up more quickly. At this time patient is accepted but waiting for bed assignment. His renal function is appropriate. Vital Signs Vital signs: Vital Signs - 8 hr 09/21/21 15:00 09/21/21 15:24 09/21/21 15:24 Pulse Rate 90 102 H Respiratory Rate 18 Blood Pressure 112/57 L Pulse Oximetry 98 94 09/21/21 15:30 09/21/21 15:30 09/21/21 15:54 Pulse Rate 91 H Respiratory Rate 19 Blood Pressure 105/58 L 116/67 Pulse Oximetry 95 09/21/21 15:54 09/21/21 16:00 09/21/21 16:00 Pulse Rate 106 H 102 H Respiratory Rate 20 23 Blood Pressure 109/71 Pulse Oximetry 95 96 09/21/21 16:30 09/21/21 16:30 09/21/21 17:00 Pulse Rate 101 H Respiratory Rate 22 Blood Pressure 120/64 131/75 Pulse Oximetry 98 09/21/21 17:00 09/21/21 17:30 09/21/21 17:30 Pulse Rate 104 H 119 H Respiratory Rate 24 Blood Pressure 110/78 Pulse Oximetry 96 97 09/21/21 18:00 09/21/21 18:00 09/21/21 18:30 Pulse Rate 119 H Respiratory Rate 22 Blood Pressure 120/73 125/57 L Pulse Oximetry 97 09/21/21 18:30 09/21/21 19:00 09/21/21 19:00 Pulse Rate 115 H 117 H Respiratory Rate 23 29 H Blood Pressure 133/78 Pulse Oximetry 95 97 09/21/21 19:30 09/21/21 19:30 09/21/21 20:00 Pulse Rate 110 H 99 H Respiratory Rate 25 H 21 Blood Pressure 127/81 Pulse Oximetry 96 <Janelle Marie, DO - Last Filed: 09/23/21 04:43> Orders Ordered: Discontinued Medications Atorvastatin Calcium (Atorvastatin 20 Mg Tablet) 20 mg PO DAILY [facility] Last Admin: 09/21/21 21:07 Dose: 20 mg Documented By: CHELSY Sodium Chloride (Normal Saline 0.9%) 1,000 mls @ 125 mls/hr IV CONT [facility] Last Admin: 09/21/21 21:08 Dose: 125 mls/hr Documented By: CHELSY Ceftriaxone Sodium 1,000 mg/ (Sodium Chloride) 100 mls @ 200 mls/hr IV NOW ONE Stop: 09/21/21 21:33 Last Infusion: 09/21/21 23:01 Dose: 0 mls/hr Documented By: Admin: 09/21/21 22:11 Dose: 200 mls/hr Documented By: CHELSY Lidocaine HCl (Lidocaine 2% (Glydo) 6 Ml Gel) 6 ml TOP NOW ONE Stop: 09/21/21 14:52 Last Admin: 09/21/21 15:01 Dose: 6 ml Documented By: AB Metoprolol Tartrate (Metoprolol Ir 25 Mg Tablet) 12.5 mg PO BID [facility] Last Admin: 09/21/21 21:07 Dose: 12.5 mg Documented By: CHELSY Oxycodone HCl (Oxycodone Ir 5 Mg Tablet) 5 mg PO Q6H PRN PRN Reason: pain Last Admin: 09/21/21 21:16 Dose: 5 mg Documented By: CHELSY Vital Signs Vital signs: Vital Signs - 8 hr 09/21/21 15:00 09/21/21 15:24 09/21/21 15:24 Pulse Rate 90 102 H Respiratory Rate 18 Blood Pressure 112/57 L Pulse Oximetry 98 94 09/21/21 15:30 09/21/21 15:30 09/21/21 15:54 Pulse Rate 91 H Respiratory Rate 19 Blood Pressure 105/58 L 116/67 Pulse Oximetry 95 09/21/21 15:54 09/21/21 16:00 09/21/21 16:00 Pulse Rate 106 H 102 H Respiratory Rate 20 23 Blood Pressure 109/71 Pulse Oximetry 95 96 09/21/21 16:30 09/21/21 16:30 09/21/21 17:00 Pulse Rate 101 H Respiratory Rate 22 Blood Pressure 120/64 131/75 Pulse Oximetry 98 09/21/21 17:00 09/21/21 17:30 09/21/21 17:30 Pulse Rate 104 H 119 H Respiratory Rate 24 Blood Pressure 110/78 Pulse Oximetry 96 97 09/21/21 18:00 09/21/21 18:00 09/21/21 18:30 Pulse Rate 119 H Respiratory Rate 22 Blood Pressure 120/73 125/57 L Pulse Oximetry 97 09/21/21 18:30 09/21/21 19:00 09/21/21 19:00 Pulse Rate 115 H 117 H Respiratory Rate 23 29 H Blood Pressure 133/78 Pulse Oximetry 95 97 09/21/21 19:30 09/21/21 19:30 09/21/21 20:00 Pulse Rate 110 H 99 H Respiratory Rate 25 H 21 Blood Pressure 127/81 Pulse Oximetry 96 <Christopher Du, DO - Last Filed: 09/21/21 22:57> Orders Ordered: Discontinued Medications Atorvastatin Calcium (Atorvastatin 20 Mg Tablet) 20 mg PO DAILY [facility] Last Admin: 09/21/21 21:07 Dose: 20 mg Documented By: CHELSY Sodium Chloride (Normal Saline 0.9%) 1,000 mls @ 125 mls/hr IV CONT [facility] Last Admin: 09/21/21 21:08 Dose: 125 mls/hr Documented By: CHELSY Ceftriaxone Sodium 1,000 mg/ (Sodium Chloride) 100 mls @ 200 mls/hr IV NOW ONE Stop: 09/21/21 21:33 Last Infusion: 09/21/21 23:01 Dose: 0 mls/hr Documented By: Admin: 09/21/21 22:11 Dose: 200 mls/hr Documented By: CHELSY Lidocaine HCl (Lidocaine 2% (Glydo) 6 Ml Gel) 6 ml TOP NOW ONE Stop: 09/21/21 14:52 Last Admin: 09/21/21 15:01 Dose: 6 ml Documented By: AB Metoprolol Tartrate (Metoprolol Ir 25 Mg Tablet) 12.5 mg PO BID [facility]ST[facility] Last Admin: 09/21/21 21:07 Dose: 12.5 mg Documented By: CHELSY Oxycodone HCl (Oxycodone Ir 5 Mg Tablet) 5 mg PO Q6H PRN PRN Reason: pain Last Admin: 09/21/21 21:16 Dose: 5 mg Documented By: CHELSY Vital Signs Vital signs: Vital Signs - 8 hr 09/21/21 15:00 09/21/21 15:24 09/21/21 15:24 Pulse Rate 90 102 H Respiratory Rate 18 Blood Pressure 112/57 L Pulse Oximetry 98 94 09/21/21 15:30 09/21/21 15:30 09/21/21 15:54 Pulse Rate 91 H Respiratory Rate 19 Blood Pressure 105/58 L 116/67 Pulse Oximetry 95 09/21/21 15:54 09/21/21 16:00 09/21/21 16:00 Pulse Rate 106 H 102 H Respiratory Rate 20 23 Blood Pressure 109/71 Pulse Oximetry 95 96 09/21/21 16:30 09/21/21 16:30 09/21/21 17:00 Pulse Rate 101 H Respiratory Rate 22 Blood Pressure 120/64 131/75 Pulse Oximetry 98 09/21/21 17:00 09/21/21 17:30 09/21/21 17:30 Pulse Rate 104 H 119 H Respiratory Rate 24 Blood Pressure 110/78 Pulse Oximetry 96 97 09/21/21 18:00 09/21/21 18:00 09/21/21 18:30 Pulse Rate 119 H Respiratory Rate 22 Blood Pressure 120/73 125/57 L Pulse Oximetry 97 09/21/21 18:30 09/21/21 19:00 09/21/21 19:00 Pulse Rate 115 H 117 H Respiratory Rate 23 29 H Blood Pressure 133/78 Pulse Oximetry 95 97 09/21/21 19:30 09/21/21 19:30 09/21/21 20:00 Pulse Rate 110 H 99 H Respiratory Rate 25 H 21 Blood Pressure 127/81 Pulse Oximetry 96 MDM - Male Genitourinary <Kasey Fields DO - Last Filed: 09/22/21 21:06> Lab Data Result diagrams: 09/21/21 15:41 09/21/21 15:41 Labs: Lab Results 09/21/21 09/21/21 09/21/21 Range/Units 15:41 15:41 16:46 WBC 8.5 (4.5-11.0) X10^3/uL RBC 3.75 L (4.5-5.9) X10^6/uL Hgb 11.7 L (13.5-17.5) g/dL Hct 34.0 L (41-53) % MCV 90.6 D (80-100) fL MCH 31.2 (26-34) PG MCHC 34.5 (30-36) % RDW 13.7 (11.6-14.8) % Plt Count 267 (150-400) X10^3/uL Neut % (Auto) 69.6 (50-75) % Lymph % (Auto) 19.4 L (25-40) % [place] % (Auto) 9.2 (3-14) % Eos % (Auto) 1.0 L (2-4) % Baso % (Auto) 0.8 (0-2) % Neut # (Auto) 5900 (3929-0655) /uL Lymph # (Auto) 1600 (8120-1728) /uL [place] # (Auto) 800 (0-900) /uL Eos # (Auto) 100 (0-450) /uL Baso # (Auto) 100 (0-100) /uL Sodium 134 L (137-145) mmol/L Potassium 4.0 (3.4-5.1) mmol/L Chloride 99 (98-107) mmol/L Carbon Dioxide 30 (22-32) mmol/L BUN 18 (9-20) mg/dL Creatinine 0.91 (0.66-1.25) mg/dL Estimated GFR > 60 (>60) mL/min BUN/Creatinine Ratio 19.8 (6-22) Glucose 95 (80-110) mg/dL Calcium 8.1 L (8.4-10.2) mg/dL SARS-CoV-2 (PCR) Negative (Negative) Imaging Data KUB xray: Radiologist's Impression: [address] [address] XRay Report Signed Patient: Rodolfo Hawthorne MR#: [id number] : 1940 Acct:[id number] Age/Sex: 81 / M Date of Service: 09/21/21 Loc: ED Accession Number: [id number] ?? Procedure: XR KUB Ordering Provider: Kasey Fields D.O. PROCEDURE:? XR KUB ? INDICATIONS:? guidewire from catheter stuck, hx of ureteral stent. ? TECHNIQUE:? One view of the abdomen acquired.? ? COMPARISON:? [facility], RG, CT ABDOMEN/PELVIS WITHOUT CONTRAST, 08/10/2021, 15:14.? [facility], CR, XR KUB, 08/27/2021, 8:14.? [facility], CR, XR KUB, 07/20/2021, 7:38. ? FINDINGS:? ? Surgical changes and devices:? 2 right ureteral stents.? Left ureteral stent.? Post median sternotomy.? IVC filter.? Wire projecting over the pelvis. ? Bowel:? Bowel gas pattern is normal.? ? Soft tissues:? Calcification in the right kidney measuring 1.8 cm. No suspicious abdominal calcifications.? Visualized solid organ contours appear normal in size.? Vascular calcifications.? Lung bases are clear. ? Bones:? No suspicious bony lesions.? In stage left hip DJD.? ? IMPRESSION:? Wire projecting over the pelvis. ? 2 right ureteral stents and 1 left ureteral stent. ? ? Dictated by: Rocky Perry M.D. on 09/21/2021 at 15:21 ? ? Approved by: Rocky Perry M.D. on 09/21/2021 at 15:24?? [facility] Narrative Medical decision making narrative: This is an 81-year-old male who comes emergency department after having his Katz catheter removed at his fdc and having what appears to be a guidewire stuck and coming out of his penis. Patient is demented unable to initially give information. He does have what appears to be a guidewire although there is a plastic covering towards the end with markings in terms of length. Patient's renal function appears stable. Imaging shows a wire that does appear to be hooked or stuck on a stent. Was able to find a report from a local urologist that shows patient had encrusted ureteral stents they attempted to remove 1 with a loop or snare and that it became entangled and they were unable to extract in the OR. Patient had Katz catheter left in place with the guidewire with set up follow-up with you had up to have the wire and stents replaced at [facility] later this month. Unclear why his Katz catheter was removed today but it was and the guidewire or sleep wire is unable to be removed I did give some gentle pressure without any movement. Patient CT is noted case was discussed with urology who recommends transfer if he is able to urinate around the catheter we have some time to wait for bed assignment, if patient is unable and cannot pass a urinary catheter then will need ED to Ed transfer. Patient signed out while awaiting transfer to [facility]. Patient accepted but awaiting bed assigment. Patient signed out to Dr. Marie, not Dr. Du. 2100 patient signed out to me by Dr. Fields. I have seen evaluated patient myself. He is cooperative. , urology from [facility] has been reconsulted. She states that if patient is urinating which she is. He continues to have bladder scans of 100 cc in his bladder and has wet briefs then no need to her transfer. [facility] does not have any beds. She actually recommends cutting the wire so that there is no wire coming out of the penis. She request photos to be emailed to her so she better understands what is happening and the situation. Images have also been pushed [facility]. Dr du: Received turnover. It was reported to me that as long as the patient is urinating he can be discharged and can follow up with Urology as an outpatient. Patient lives at [facility]. Will discharge patient home with instructions to follow-up with urology the beginning of next week. <Janelle Marie, DO - Last Filed: 09/23/21 04:43> Lab Data Labs: Lab Results 09/21/21 09/21/21 09/21/21 Range/Units 15:41 15:41 16:46 WBC 8.5 (4.5-11.0) X10^3/uL RBC 3.75 L (4.5-5.9) X10^6/uL Hgb 11.7 L (13.5-17.5) g/dL Hct 34.0 L (41-53) % MCV 90.6 D (80-100) fL MCH 31.2 (26-34) PG MCHC 34.5 (30-36) % RDW 13.7 (11.6-14.8) % Plt Count 267 (150-400) X10^3/uL Neut % (Auto) 69.6 (50-75) % Lymph % (Auto) 19.4 L (25-40) % [place] % (Auto) 9.2 (3-14) % Eos % (Auto) 1.0 L (2-4) % Baso % (Auto) 0.8 (0-2) % Neut # (Auto) 5900 (0554-8293) /uL Lymph # (Auto) 1600 (9526-8940) /uL [place] # (Auto) 800 (0-900) /uL Eos # (Auto) 100 (0-450) /uL Baso # (Auto) 100 (0-100) /uL Sodium 134 L (137-145) mmol/L Potassium 4.0 (3.4-5.1) mmol/L Chloride 99 (98-107) mmol/L Carbon Dioxide 30 (22-32) mmol/L BUN 18 (9-20) mg/dL Creatinine 0.91 (0.66-1.25) mg/dL Estimated GFR > 60 (>60) mL/min BUN/Creatinine Ratio 19.8 (6-22) Glucose 95 (80-110) mg/dL Calcium 8.1 L (8.4-10.2) mg/dL SARS-CoV-2 (PCR) Negative (Negative) MDM Narrative Medical decision making narrative: This is an 81-year-old male who comes emergency department after having his Katz catheter removed at his f[facility] and having what appears to be a guidewire stuck and coming out of his penis. Patient is demented unable to initially give information. He does have what appears to be a guidewire although there is a plastic covering towards the end with markings in terms of length. Patient's renal function appears stable. Imaging shows a wire that does appear to be hooked or stuck on a stent. Was able to find a report from a local urologist that shows patient had encrusted ureteral stents they attempted to remove 1 with a loop or snare and that it became entangled and they were unable to extract in the OR. Patient had Katz catheter left in place with the guidewire with set up follow-up with you had up to have the wire and stents replaced at [facility] later this month. Unclear why his Katz catheter was removed today but it was and the guidewire or sleep wire is unable to be removed I did give some gentle pressure without any movement. Patient CT is noted case was discussed with urology who recommends transfer if he is able to urinate around the catheter we have some time to wait for bed assignment, if patient is unable and cannot pass a urinary catheter then will need ED to Ed transfer. Patient signed out while awaiting transfer to [facility]. Patient accepted but awaiting bed assigment. 2100 patient signed out to me by Dr. Fields. I have seen evaluated patient myself. He is cooperative. , urology from [facility] has been reconsulted. She states that if patient is urinating which she is. He continues to have bladder scans of 100 cc in his bladder and has wet briefs then no need to her transfer. [facility] does not have any beds. She actually recommends cutting the wire so that there is no wire coming out of the penis. She request photos to be emailed to her so she better understands what is happening and the situation. Images have also been pushed [facility]. Signed out to Dr. Du <Christopher Du, DO - Last Filed: 09/21/21 22:57> Lab Data Labs: Lab Results 09/21/21 09/21/21 09/21/21 Range/Units 15:41 15:41 16:46 WBC 8.5 (4.5-11.0) X10^3/uL RBC 3.75 L (4.5-5.9) X10^6/uL Hgb 11.7 L (13.5-17.5) g/dL Hct 34.0 L (41-53) % MCV 90.6 D (80-100) fL MCH 31.2 (26-34) PG MCHC 34.5 (30-36) % RDW 13.7 (11.6-14.8) % Plt Count 267 (150-400) X10^3/uL Neut % (Auto) 69.6 (50-75) % Lymph % (Auto) 19.4 L (25-40) % [place] % (Auto) 9.2 (3-14) % Eos % (Auto) 1.0 L (2-4) % Baso % (Auto) 0.8 (0-2) % Neut # (Auto) 5900 (1774-0625) /uL Lymph # (Auto) 1600 (3979-2940) /uL [place] # (Auto) 800 (0-900) /uL Eos # (Auto) 100 (0-450) /uL Baso # (Auto) 100 (0-100) /uL Sodium 134 L (137-145) mmol/L Potassium 4.0 (3.4-5.1) mmol/L Chloride 99 (98-107) mmol/L Carbon Dioxide 30 (22-32) mmol/L BUN 18 (9-20) mg/dL Creatinine 0.91 (0.66-1.25) mg/dL Estimated GFR > 60 (>60) mL/min BUN/Creatinine Ratio 19.8 (6-22) Glucose 95 (80-110) mg/dL Calcium 8.1 L (8.4-10.2) mg/dL SARS-CoV-2 (PCR) Negative (Negative) MDM Narrative Medical decision making narrative: This is an 81-year-old male who comes emergency department after having his Katz catheter removed at his fdc and having what appears to be a guidewire stuck and coming out of his penis. Patient is demented unable to initially give information. He does have what appears to be a guidewire although there is a plastic covering towards the end with markings in terms of length. Patient's renal function appears stable. Imaging shows a wire that does appear to be hooked or stuck on a stent. Was able to find a report from a local urologist that shows patient had encrusted ureteral stents they attempted to remove 1 with a loop or snare and that it became entangled and they were unable to extract in the OR. Patient had Katz catheter left in place with the guidewire with set up follow-up with you had up to have the wire and stents replaced at [facility] later this month. Unclear why his Katz catheter was removed today but it was and the guidewire or sleep wire is unable to be removed I did give some gentle pressure without any movement. Patient CT is noted case was discussed with urology who recommends transfer if he is able to urinate around the catheter we have some time to wait for bed assignment, if patient is unable and cannot pass a urinary catheter then will need ED to Ed transfer. Patient signed out while awaiting transfer to [facility]. Patient accepted but awaiting bed assigment. 2100 patient signed out to me by Dr. Fields. I have seen evaluated patient myself. He is cooperative. , urology from [facility] has been reconsulted. She states that if patient is urinating which she is. He continues to have bladder scans of 100 cc in his bladder and has wet briefs then no need to her transfer. [facility] does not have any beds. She actually recommends cutting the wire so that there is no wire coming out of the penis. She request photos to be emailed to her so she better understands what is happening and the situation. Images have also been pushed [facility]. Signed out to Dr. Florian du: Received turnover. It was reported to me that as long as the patient is urinating he can be discharged and can follow up with Urology as an outpatient. Patient lives at [facility]. Will discharge patient home with instructions to follow-up with urology the beginning of next week. Discharge Plan Departure Patient Disposition: Home Clinical Impression: Foreign body in penile urethra Activity Restrictions/Additional Instructions: Rodolfo does need to contact the Urology Department here at the hospital on Friday for his follow-up. He will most likely require a procedure to remove the guidewire. As long as he is urinating this can be done as an outpatient. If he starts to have fevers, pain, inability to urinate that he does need to return to the emergency department for further evaluation. He can continue all of his medications as previously directed. Prescriptions: No Action metoprolol tartrate 50 mg Tablet 12.5 mg PO BID oxycodone 5 mg tablet 5 mg PO Q4H PRN (Reason: pain) Qty: 10 0RF tamsulosin [Flomax] 0.4 mg capsule 0.8 mg PO BEDTIME atorvastatin [Lipitor] 20 mg tablet 20 mg PO DAILY donepezil 10 mg tablet 10 mg PO QPM Advair HFA 230-21 mcg/actuation HFA aerosol inhaler 2 puff inhalation BID PRN (Reason: Cough) multivitamin [Daily Multi-Vitamin] Tablet 1 tab PO DAILY aspirin 81 mg tablet,chewable 81 mg PO DAILY calcium carbonate-vitamin D3 500mg (1,250mg) -600 unit tablet 1 tab PO DAILY Referrals: Sol Leroy MD [Primary Care Provider] - Visit Report Forms: Patient Portal/API
[2021-09-21] MEDS: LIDOCAINE 2% (GLYDO) 6 ML GEL TOP (15:01)
--- NOTE | 2021-09-21 15:36 | DI.CT.S_ITS ---
PROCEDURE: CT KIDNEY URETER BLADDER (KUB) INDICATIONS: guidewire stuck. letft in OR. TECHNIQUE: Axial sections were acquired from the lung bases to the pubic symphysis. Coronal and sagittal reformats were performed. For radiation dose reduction, the following was used: automated exposure control, adjustment of mA and/or kV according to patient size. COMPARISON: [facility], CR, XR KUB, 09/21/2021, 14:42. [facility], CR, XR KUB, 08/27/2021, 8:14. [facility], RG, CT ABDOMEN/PELVIS WITHOUT CONTRAST, 08/10/2021, 15:14. FINDINGS: Image quality: Excellent. Lung bases: Bibasilar atelectasis. Heart: Enlarged heart size. Post median sternotomy. Gynecomastia. URINARY: Right Kidney: Nonobstructing calculus measuring 1.8 cm, (2/46). This measures 562 Hounsfield units. Mild caliectasis. Right Ureter: No hydroureter. Two ureteral stents. The superior portions of the stents are within the renal pelvis. The inferior portions are in the urinary bladder and 1 has herniated into the prostate gland urethra, (57). There is a 1 wire in the urethra extending to the region of the prostate gland. The wire is abutting or in close proximity to the right ureteral stent. Left Kidney: Nonobstructing calculus measuring 0.5 cm, (2/41). This measures 372 Hounsfield units. No hydronephrosis. Left Ureter: Ureteral stent is in the expected position. Bladder: Not distended. No stones. Small focus of gas likely due to prior instrumentation. ABDOMEN: Liver: Unremarkable. Gallbladder: Layering gallstones. Biliary ducts: Unremarkable. Pancreas: Unremarkable. Spleen: Unremarkable. Adrenal Glands: Unremarkable. Stomach and Bowel: Increased stool in the rectum. Diverticulosis. Peritoneum: No abnormal intraperitoneal fluid. No free air. Ventral Wall: No hernia. Abdominal Nodes: No enlarged retroperitoneal or mesenteric lymph nodes. Vessels: Aorta and inferior vena cava are normal in size. Circumferential calcified atherosclerotic plaque. Infrarenal IVC filter. PELVIS: Pelvic Organs: Unremarkable. Pelvic Nodes: Unremarkable. Miscellaneous: No inguinal hernias are seen. Bones: L3 intraosseous hemangioma. Severe left hip DJD. Left femur hardware. IMPRESSION: 1. Right ureteral stent inferior aspect has herniated into the prosthetic urethra. A guidewire in the urethra could be entrapped on this ureteral stent. 2. Two right and one left ureteral stent. Mild right caliectasis. 3. Nonobstructing kidney stones. 4. Gallstones. 5. Prominent stool in the rectum. Comment: Findings were discussed with Kasey Fields at the time of dictation. Dictated by: Rocky Perry M.D. on 09/21/2021 at 16:10 Approved by: Rocky Perry M.D. on 09/21/2021 at 16:26
[2021-09-21 15:49] LABS: Add Manual Diff / Slide Review NO; Basophils Absolute Auto 100 /uL (0-100); Basophils Percent Auto 0.8 % (0-2); Eosinophils Absolute Auto 100 /uL (0-450); Hemoglobin 11.7 g/dL (13.5-17.5); Lymphocytes Absolute Auto 1600 /uL (1100-4500); Lymphocytes Percent Auto 19.4 % (25-40); Mean Corpuscular HGB Conc 34.5 % (30-36); Mean Corpuscular Hemoglobin 31.2 PG (26-34); Mean Corpuscular Volume 90.6 fL (80-100); Monocytes Absolute Auto 800 /uL (0-900); Monocytes Percent Auto 9.2 % (3-14); Neutrophils Absolute Auto 5900 /uL (1500-7000); Neutrophils Percent Auto 69.6 % (50-75); Platelet Count 267 X10^3/uL (150-400); Red Blood Cell Count 3.75 X10^6/uL (4.5-5.9); Red Cell Distribution Width 13.7 % (11.6-14.8); White Blood Cell Count 8.5 X10^3/uL (4.5-11.0)
[2021-09-21 16:53] LABS: BUN Creatinine Ratio 19.8 (6-22); Blood Urea Nitrogen 18 mg/dL (9-20); Carbon Dioxide 30 mmol/L (22-32); Chloride 99 mmol/L (98-107); Estimated Glomerular Filt Rate > 60 mL/min (>60); Sodium 134 mmol/L (137-145)
[2021-09-21 16:54] LABS: Calcium 8.1 mg/dL (8.4-10.2); Glucose 95 mg/dL (80-110); HEMOLYSIS < 15 (0-50)
[2021-09-21 17:19] LABS: COVID19 -Nasal RAPID Negative (Negative)
[2021-09-21] MEDS: ATORVASTATIN 20 MG TABLET PO (21:07)
[2021-09-21] MEDS: METOPROLOL IR 25 MG TABLET 12.5 MG PO (21:07)
[2021-09-21] MEDS: SODIUM CHLORIDE 0.9% 1,000 ML 125 ML IV (21:08)
[2021-09-21] MEDS: OXYCODONE IR 5 MG TABLET PO (21:16)
[2021-09-21] MEDS: cefTRIAXone 1,000 MG in SODIUM CHLORIDE 0.9% 100 ML 200 MG IV (22:11)
== END 2021-09-21 23:32 | disposition home or self-care (01) ==
PROVIDERS: Emergency Medicine; Emergency Provider Emergency Medicine; Family Provider Student in an Organized Health Care Education/Training Program; PCP Family Medicine
DX: T19.0XXA Foreign body in urethra, initial encounter (principal); Z20.822 Contact with and (suspected) exposure to COVID-19
CPT/HCPCS: 36415; 51798; 74018; 74176; 80048; 85025; 87635; 96365; 99284; C9803; J0696

== ENCOUNTER 2021-10-03 16:01 | Inpatient (IN) | payer MEDICARE, BC, SELFPAY ==
[2021-08-27 17:09] VITALS: BMI 29.5
[2021-10-03] VITALS (21 sets, daily range): BP systolic 100–132; BP diastolic 62–83; PULSE 93–133; RESP 20–46; TEMP 36.8; O2SAT 92–99; BMI 28.5
--- NOTE | 2021-10-03 16:39 | PC.NURSE ---
[facility] called to send pt over stating he had hyptotension and tachycardia. they were unable to give numbers but stated his WBC count was 17 and they believed he was septic. pt sister is at bedside. she states he has a urethral stent that is stuck inside and he is scheduled to have it out next . but on friday his affect changed, he was more lethargic and has been sleeping much more than usual. she states that yesterday should was unable to wake him at all for a 2 hours window of time.
[2021-10-03 16:43] LABS: Add Manual Diff / Slide Review NO; Basophils Absolute Auto 0 /uL (0-100); Basophils Percent Auto 0.6 % (0-2); Eosinophils Absolute Auto 100 /uL (0-450); Eosinophils Percent Auto 0.9 % (2-4); Hemoglobin 12.2 g/dL (13.5-17.5); Lymphocytes Absolute Auto 900 /uL (1100-4500); Lymphocytes Percent Auto 13.2 % (25-40); Mean Corpuscular Hemoglobin 30.2 PG (26-34); Mean Corpuscular Volume 88.7 fL (80-100); Monocytes Absolute Auto 700 /uL (0-900); Monocytes Percent Auto 10.7 % (3-14); Neutrophils Absolute Auto 5100 /uL (1500-7000); Neutrophils Percent Auto 74.6 % (50-75); Platelet Count 235 X10^3/uL (150-400); Red Blood Cell Count 4.05 X10^6/uL (4.5-5.9); White Blood Cell Count 6.9 X10^3/uL (4.5-11.0)
[2021-10-03 16:56] LABS: Alanine Aminotransferase 28 IU/L (<50); Albumin 3.2 g/dL (3.5-5.0); Albumin Globulin Ratio 0.9 (1.0-2.8); Alkaline Phosphatase 109 U/L (38-126); Aspartate Aminotransferase 55 IU/L (17-59); BUN Creatinine Ratio 29.7 (6-22); Bilirubin Total 1.1 mg/dL (0.2-1.3); Blood Urea Nitrogen 33 mg/dL (9-20); Calcium 8.2 mg/dL (8.4-10.2); Carbon Dioxide 29 mmol/L (22-32); Chloride 97 mmol/L (98-107); Estimated Glomerular Filt Rate > 60 mL/min (>60); Globulin 3.6 g/dL (1.7-4.1); Glucose 114 mg/dL (80-110); HEMOLYSIS < 15 (0-50); Potassium 4.1 mmol/L (3.4-5.1); Sodium 132 mmol/L (137-145); Total Protein 6.8 g/dL (6.3-8.2)
[2021-10-03 16:57] LABS: Lactate (Lactic Acid) 1.6 mmol/L (0.7-2.1)
[2021-10-03 17:12] LABS: Procalcitonin 1.68 ng/mL (<0.5)
[2021-10-03 17:15] LABS: Creatine Kinase 75 U/L (55-170)
[2021-10-03 17:28] LABS: Troponin I < 0.012 ng/mL (0.01-0.034)
[2021-10-03] MEDS: SODIUM CHLORIDE 0.9% 1,000 ML 1000 ML IV (17:31)
--- NOTE | 2021-10-03 17:46 | ED_ITS ---
HPI - Altered Mental Status General Chief Complaint: Altered Mental Status Stated Complaint: Abnormal labs Time Seen by Provider: 10/03/21 16:02 Source: family and EMS Mode of arrival: EMS Related Data Home Medications Medication Instructions Recorded Confirmed aspirin 81 mg chewable tablet 81 mg PO DAILY 03/16/20 08/27/21 atorvastatin 20 mg tablet (Lipitor) 20 mg PO DAILY 03/16/20 08/27/21 calcium carbonate 500 mg-vitamin 1 tab PO DAILY 03/16/20 08/27/21 D3 15 mcg (600 unit) tablet donepezil 10 mg tablet 10 mg PO QPM 03/16/20 08/27/21 fluticasone propionate 230 2 puff inhalation BID PRN Cough 03/16/20 08/27/21 mcg-salmeterol 21 mcg/actuation HFA inhaler (Advair HFA) multivitamin (Daily Multi-Vitamin 1 tab PO DAILY 03/16/20 08/27/21 tablet) tamsulosin 0.4 mg capsule (Flomax) 0.8 mg PO BEDTIME 03/16/20 08/27/21 metoprolol tartrate 50 mg tablet 12.5 mg PO BID 06/16/20 08/27/21 Previous Rx's Medication Instructions Recorded oxycodone 5 mg tablet 5 mg PO Q4H PRN pain #10 tabs 08/27/21 Allergies Allergy/AdvReac Type Severity Reaction Status Date / Time lisinopril AdvReac Mild Light-heade Verified 08/27/21 08:18 d/Dizzy shellfish derived AdvReac Mild Nausea & Verified 08/27/21 08:18 Sweat 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) Hypercholesterolemia Left ureteral calculus MRSA (methicillin resistant Staphylococcus aureus) Renal calculus, right Renal colic on left side Retained ureteral stent Surgical History H/O circumcision H/O vasectomy History of cataract extraction History of coronary artery stent placement History of incision and drainage History of knee replacement (1996) History of knee replacement (1999) History of urologic surgery (06/16/20) Hx of CABG (2010) Hx of cystoscopy (07/20/21) Family History Mother Cancer Sister Cancer Father Coronary artery disease Social History marital status: unmarried,single household members: family occupational status: previously employed Smoking Status: Former smoker alcohol intake: never caffeine: No Smoking Status: Former smoker alcohol intake frequency: holidays/special occasions only Substance Use Type: does not use Exam Initial Vital Signs Initial Vital Signs: Vital Signs Temperature 98.2 F 10/03/21 16:30 Pulse Rate 131 H 10/03/21 16:30 Respiratory Rate 28 H 10/03/21 16:30 Blood Pressure 128/65 10/03/21 16:30 Pulse Oximetry 99 10/03/21 16:30 Oxygen Delivery Method 10/03/21 16:30 Course Orders Ordered: ED Orders 10/03/21 16:20 CBC Auto Diff [Complete Blood Count AUTO DIFF] Stat CMP [Comprehensive Metabolic Panel] Stat Lactate (Lactic Acid) Stat Procalcitonin Stat Troponin & CK Cardiac Panel Stat UA Complete [Urinalysis and Microscopic] Stat 10/03/21 16:41 Blood Culture Stat 10/03/21 17:01 EKG-12 Lead Stat 10/03/21 17:46 CT abdomen pelvis wo con Stat Discontinued Medications Sodium Chloride (Normal Saline 0.9%) 1,000 mls @ 1,000 mls/hr IV BOLUS ONE Stop: 10/03/21 18:00 Last Admin: 10/03/21 17:31 Dose: 1,000 mls/hr Documented By: NR Piperacillin Sod/Tazobactam (Sod 4.5 gm/ Sodium Chloride) 100 mls @ 200 mls/hr IV NOW ONE Stop: 10/03/21 17:47 Vital Signs Vital signs: Vital Signs - 8 hr 10/03/21 16:30 Temperature 98.2 F Pulse Rate 131 H Respiratory Rate 28 H Blood Pressure 128/65 Pulse Oximetry 99 Oxygen Delivery Method Room Air MDM - Altered Mental Status Lab Data Result diagrams: 10/03/21 16:20 10/03/21 16:20 Labs: Lab Results 10/03/21 10/03/21 10/03/21 Range/Units 16:20 16:20 16:20 WBC 6.9 (4.5-11.0) X10^3/uL RBC 4.05 L (4.5-5.9) X10^6/uL Hgb 12.2 L (13.5-17.5) g/dL Hct 36.0 L (41-53) % MCV 88.7 (80-100) fL MCH 30.2 (26-34) PG MCHC 34.0 (30-36) % RDW 14.0 (11.6-14.8) % Plt Count 235 (150-400) X10^3/uL Neut % (Auto) 74.6 (50-75) % Lymph % (Auto) 13.2 L (25-40) % [place] % (Auto) 10.7 (3-14) % Eos % (Auto) 0.9 L (2-4) % Baso % (Auto) 0.6 (0-2) % Neut # (Auto) 5100 (0900-5366) /uL Lymph # (Auto) 900 L (8606-4640) /uL [place] # (Auto) 700 (0-900) /uL Eos # (Auto) 100 (0-450) /uL Baso # (Auto) 0 (0-100) /uL Sodium 132 L (137-145) mmol/L Potassium 4.1 (3.4-5.1) mmol/L Chloride 97 L (98-107) mmol/L Carbon Dioxide 29 (22-32) mmol/L BUN 33 H (9-20) mg/dL Creatinine 1.11 (0.66-1.25) mg/dL Estimated GFR > 60 (>60) mL/min BUN/Creatinine Ratio 29.7 H (6-22) Glucose 114 H (80-110) mg/dL Lactate 1.6 (0.7-2.1) mmol/L Calcium 8.2 L (8.4-10.2) mg/dL Total Bilirubin 1.1 (0.2-1.3) mg/dL AST 55 (17-59) IU/L ALT 28 (<50) IU/L Alkaline Phosphatase 109 (38-126) U/L Total Creatine Kinase (55-170) U/L CK-MB (CK-2) CK-MB (CK-2) Rel Index Troponin I (0.01-0.034) ng/mL Total Protein 6.8 (6.3-8.2) g/dL Albumin 3.2 L (3.5-5.0) g/dL Globulin 3.6 (1.7-4.1) g/dL Albumin/Globulin Ratio 0.9 L (1.0-2.8) Procalcitonin 1.68 H (<0.5) ng/mL 10/03/21 Range/Units 16:20 WBC (4.5-11.0) X10^3/uL RBC (4.5-5.9) X10^6/uL Hgb (13.5-17.5) g/dL Hct (41-53) % MCV (80-100) fL MCH (26-34) PG MCHC (30-36) % RDW (11.6-14.8) % Plt Count (150-400) X10^3/uL Neut % (Auto) (50-75) % Lymph % (Auto) (25-40) % [place] % (Auto) (3-14) % Eos % (Auto) (2-4) % Baso % (Auto) (0-2) % Neut # (Auto) (9525-9341) /uL Lymph # (Auto) (3260-8988) /uL [place] # (Auto) (0-900) /uL Eos # (Auto) (0-450) /uL Baso # (Auto) (0-100) /uL Sodium (137-145) mmol/L Potassium (3.4-5.1) mmol/L Chloride (98-107) mmol/L Carbon Dioxide (22-32) mmol/L BUN (9-20) mg/dL Creatinine (0.66-1.25) mg/dL Estimated GFR (>60) mL/min BUN/Creatinine Ratio (6-22) Glucose (80-110) mg/dL Lactate (0.7-2.1) mmol/L Calcium (8.4-10.2) mg/dL Total Bilirubin (0.2-1.3) mg/dL AST (17-59) IU/L ALT (<50) IU/L Alkaline Phosphatase (38-126) U/L Total Creatine Kinase 75 (55-170) U/L CK-MB (CK-2) TNP CK-MB (CK-2) Rel Index TNP Troponin I < 0.012 (0.01-0.034) ng/mL Total Protein (6.3-8.2) g/dL Albumin (3.5-5.0) g/dL Globulin (1.7-4.1) g/dL Albumin/Globulin Ratio (1.0-2.8) Procalcitonin (<0.5) ng/mL Discharge Plan Departure Prescriptions: No Action metoprolol tartrate 50 mg Tablet 12.5 mg PO BID oxycodone 5 mg tablet 5 mg PO Q4H PRN (Reason: pain) Qty: 10 0RF tamsulosin [Flomax] 0.4 mg capsule 0.8 mg PO BEDTIME atorvastatin [Lipitor] 20 mg tablet 20 mg PO DAILY donepezil 10 mg tablet 10 mg PO QPM Advair HFA 230-21 mcg/actuation HFA aerosol inhaler 2 puff inhalation BID PRN (Reason: Cough) multivitamin [Daily Multi-Vitamin] Tablet 1 tab PO DAILY aspirin 81 mg tablet,chewable 81 mg PO DAILY calcium carbonate-vitamin D3 500mg (1,250mg) -600 unit tablet 1 tab PO DAILY Referrals: Sol Leroy MD [Primary Care Provider] -
--- NOTE | 2021-10-03 17:46 | DI.CT.S_ITS ---
PROCEDURE: CT ABDOMEN PELVIS WO CON INDICATIONS: retained bladder wire with fever TECHNIQUE: Axial sections were acquired from the lung bases to the pubic symphysis. Coronal and sagittal reformats were performed. For radiation dose reduction, the following was used: automated exposure control, adjustment of mA and/or kV according to patient size. COMPARISON: [facility], RG, CT ABDOMEN/PELVIS WITHOUT CONTRAST, 08/10/2021, 15:14. [facility], CR, XR KUB, 09/21/2021, 14:42. [facility], CT, CT KIDNEY URETER BLADDER (KUB), 09/21/2021, 15:41. FINDINGS: Image quality: Excellent. Lung bases: Focal infiltrate or consolidation. No pleural effusions. Small hiatal hernia. Heart: Moderate cardiomegaly. No pericardial effusion. Moderate coronary artery calcification. URINARY: Right Kidney and ureter: There are 2 ureteral stents. There are multiple stones in right kidney. The largest stone measures 9 x [address] density 669 HU. Trace pelviectasis and perinephric stranding. . Left Kidney and ureter: There is a ureteral stent. A 6 x 12 mm stone is seen in the left renal pelvis, demonstrating CT density 510 HU. Trace renal pelviectasis and perinephric stranding. Bladder: Mild bladder wall thickening. Normal wall thickness. No stones. There is a linear hyperdensity within the bladder and urethra. ABDOMEN: Liver: Unremarkable. Gallbladder: There are multiple gallstones. No CT findings to suggest acute cholecystitis. Biliary ducts: Unremarkable. Pancreas: Unremarkable. Spleen: Unremarkable. Adrenal Glands: Unremarkable. Stomach and Bowel: Stomach, small bowel loops, and colon are normal in caliber. There is a large amount of stool in the rectum. Diverticulosis. No acute diverticulitis. Peritoneum: No abnormal intraperitoneal fluid. No free air. Ventral Wall: No hernia. Abdominal Nodes: No enlarged retroperitoneal or mesenteric lymph nodes. Vessels: Aorta and inferior vena cava are normal in size. There is an IVC filter. Severe atherosclerotic calcifications of aorta. PELVIS: Pelvic Organs: Prostate is prominent. Pelvic Nodes: Unremarkable. Miscellaneous: No inguinal hernias are seen. Bones: Scoliosis. Severe degenerative changes in lumbar spine. Severe osteoarthritis of the hips. IMPRESSION: 1. Nephrolithiasis bilaterally. There are 2 ureteral stent on the left and a single stent on the left. Trace renal pelviectasis and perinephric stranding bilaterally. 2. Mild bladder wall thickening. No bladder stones. There is a wire within the bladder and urethra. 3. Diverticulosis without acute diverticulitis. 4. Cholelithiasis. No acute cholecystitis. Dictated by: Willie Dale M.D. on 10/03/2021 at 18:40 Approved by: Willie Dale M.D. on 10/03/2021 at 18:52
--- NOTE | 2021-10-03 18:20 | DI.CT.S_ITS ---
PROCEDURE: CT HEAD/BRAIN WO CON INDICATIONS: Altered mental status TECHNIQUE: Noncontrast 4.5 mm thick angled axial sections acquired from the foramen magnum to the vertex, with coronal and sagittal reformats. For radiation dose reduction, the following was used: automated exposure control, adjustment of mA and/or kV according to patient size. COMPARISON: None. FINDINGS: Image quality: Excellent. CSF spaces: Basal cisterns are patent. No extra-axial fluid collections. The ventricles are dilated but symmetric in size and shape. Brain: No intracranial bleeds or masses. There is severe cerebral volume loss for age, with resultant ventricular and sulcal prominence. There are periventricular and deep white matter chronic small vessel ischemic changes. There is intracranial internal carotid artery atherosclerosis. Skull and face: Calvarium and visualized facial bones appear intact, without suspicious lesions. Sinuses: Visualized sinuses and mastoids are clear. IMPRESSION: 1. No acute intracranial abnormalities. 2. Cerebral volume loss and chronic microvascular ischemic changes. 3. Ventricular dilation may be secondary to central atrophy or normal pressure hydrocephalus. Recommend clinical correlation. Dictated by: Willie Dale M.D. on 10/03/2021 at 18:56 Approved by: Willie Dale M.D. on 10/03/2021 at 18:57
[2021-10-03] MEDS: PIPERACILLIN/TAZO 4.5 GM in SODIUM CHLORIDE 0.9% 100 ML IV (18:29)
[2021-10-03] MEDS: dilTIAZem 5 MG/ML SDV 10 MG IV (18:30)
--- NOTE | 2021-10-03 18:43 | ED_ITS ---
HPI - General Adult General Chief complaint: Altered Mental Status Stated complaint: Abnormal labs Time Seen by Provider: 10/03/21 16:02 Source: family and EMS Mode of arrival: EMS History of Present Illness HPI narrative: [facility] from [facility] for evaluation of altered mental status and possible sepsis. At this time laboratory studies have been reassuring and not septic. Patient is DNR DNI with selective treatment. Has history of atrial fibrillation and is anticoagulated. Patient was seen 2 weeks ago for evaluation of a stuck guidewire from mouth left ureteral stent that was placed here. Katz catheter was attempted to be removed by [facility] staff however the guidewire came out with it. The extended guidewire was cut at the meatus to prevent any injury. Patient had long stay here in the emergency department and unable to transfer in the facilities for further treatment. [facility] urology was consulted. Please see notes from last visit here. It is very lengthy. Patient was originally seen by Dr. Perez Notes below are from previous visit here September 21, 2021 Consultation #1: Dr. Ervin, urology [facility].? Recommends continue to monitor patient's able to pass urine does not have a a catheter emergently.? If he is unable to pass urine can slide a 14 or 16 gauge catheter alongside the guidewire as normally but very to the hub and plate balloon a pullback.? If unsuccessful or patient is still not able to pass urine will need to move transfer up more quickly.? At this time patient is accepted but waiting for bed assignment.? His renal function is appropriate. Medical decision making narrative: This is an 81-year-old male who comes emergency department after having his Katz catheter removed at his [facility] and having what appears to be a guidewire stuck and coming out of his penis.? Patient is demented unable to initially give information.? He does have what appears to be a guidewire although there is a plastic covering towards the end with markings in terms of length.? Patient's renal function appears stable.? Imaging shows a wire that does appear to be hooked or stuck on a stent.? Was able to find a report from a local urologist that shows patient had encrusted ureteral stents they attempted to remove 1 with a loop or snare and that it became entangled and they were unable to extract in the OR.? Patient had Katz catheter left in place with the guidewire with set up follow-up with you had up to have the wire and stents replaced at [facility] later this month.? Unclear why his Katz catheter was removed today but it was and the guidewire or sleep wire is unable to be removed I did give some gentle pressure without any movement.? Patient CT is noted case was discussed with urology who recommends transfer if he is able to urinate around the catheter we have some time to wait for bed assignment, if patient is unable and cannot pass a urinary catheter then will need ED to Ed transfer.? Patient signed out while awaiting transfer to [facility].? Patient accepted but awaiting bed assigment.? Patient signed out to Dr. Marie, not Dr. Du.? 2100 patient signed out to me by Dr. Fields.? I have seen evaluated patient my self.? He is cooperative.? , urology from [facility] has been reconsulted.? She states that if patient is urinating which she is.? He continues to have bladder scans of 100 cc in his bladder and has wet briefs then no need to her transfer.? [facility] does not have any beds.? She actually recommends cutting the wire so that there is no wire coming out of the penis.? She request photos to be emailed to her so she better understands what is happening and the situation.? Images have also been pushed [facility]. ?Dr du:? Received turnover.? It was reported to me that as long as the patient is urinating he can be discharged and can follow up with Urology as an outpatient.? Patient lives at [facility].? Will discharge patient home with ins tructions to follow-up with urology the beginning of next week. Medical decision making narrative: This is an 81-year-old male who comes emergency department after having his Katz catheter removed at his [facility] and having what appears to be a guidewire stuck and coming out of his penis.? Patient is demented unable to initially give information.? He does have what appears to be a guidewire although there is a plastic covering towards the end with markings in terms of length.? Patient's renal function appears stable.? Imaging shows a wire that does appear to be hooked or stuck on a stent.? Was able to find a report from a local urologist that shows patient had encrusted ureteral stents they attempted to remove 1 with a loop or snare and that it became entangled and they were unable to extract in the OR.? Patient had Katz catheter left in place with the guidewire with set up follow-up with you had up to have the wire and stents replaced at [facility] later this month.? Unclear why his Katz catheter was removed today but it was and the guidewire or sleep wire is unable to be removed I did give some gentle pressure without any movement.? Patient CT is noted case was discussed with urology who recommends transfer if he is able to urinate around the catheter we have some time to wait for bed assignment, if patient is unable and cannot pass a urinary catheter then will need ED to Ed transfer.? Patient signed out while awaiting transfer to [facility].? Patient accepted but awaiting bed assigment. 2100 patient signed out to me by Dr. Fields.? I have seen evaluated patient myself.? He is cooperative.? , urology from [facility] has been reconsulted.? She states that if patient is urinating which she is.? He continues to have bladder scans of 100 cc in his bladder and has wet briefs then no need to her transfer.? [facility] does not have any beds.? She actually recommends cutting the wire so that there is no wire coming out of the penis.? She request photos to be emailed to her so she better understands what is happening and the situation.? Images have also been pushed [facility]. Related Data Home Medications Medication Instructions Recorded Confirmed aspirin 81 mg chewable tablet 81 mg PO DAILY 03/16/20 08/27/21 atorvastatin 20 mg tablet (Lipitor) 20 mg PO DAILY 03/16/20 08/27/21 calcium carbonate 500 mg-vitamin 1 tab PO DAILY 03/16/20 08/27/21 D3 15 mcg (600 unit) tablet donepezil 10 mg tablet 10 mg PO QPM 03/16/20 08/27/21 fluticasone propionate 230 2 puff inhalation BID PRN Cough 03/16/20 08/27/21 mcg-salmeterol 21 mcg/actuation HFA inhaler (Advair HFA) multivitamin (Daily Multi-Vitamin 1 tab PO DAILY 03/16/20 08/27/21 tablet) tamsulosin 0.4 mg capsule (Flomax) 0.8 mg PO BEDTIME 03/16/20 08/27/21 metoprolol tartrate 50 mg tablet 12.5 mg PO BID 06/16/20 08/27/21 Previous Rx's Medication Instructions Recorded oxycodone 5 mg tablet 5 mg PO Q4H PRN pain #10 tabs 08/27/21 Allergies Allergy/AdvReac Type Severity Reaction Status Date / Time lisinopril AdvReac Mild Light-heade Verified 08/27/21 08:18 d/Dizzy shellfish derived AdvReac Mild Nausea & Verified 08/27/21 08:18 Sweat Review of Systems Review of Systems ROS Unobtainable: All systems reviewed & are unremarkable except as noted in HPI and below and Unobtainable due to mental condition 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) Hypercholesterolemia Left ureteral calculus MRSA (methicillin resistant Staphylococcus aureus) Renal calculus, right Renal colic on left side Retained ureteral stent Surgical History H/O circumcision H/O vasectomy History of cataract extraction History of coronary artery stent placement History of incision and drainage History of knee replacement (1996) History of knee replacement (1999) History of urologic surgery (06/16/20) Hx of CABG (2010) Hx of cystoscopy (07/20/21) Family History Mother Cancer Sister Cancer Father Coronary artery disease Social History marital status: unmarried,single household members: family occupational status: previously employed Smoking Status: Former smoker alcohol intake: never caffeine: No Smoking Status: Former smoker alcohol intake frequency: holidays/special occasions only Substance Use Type: does not use Exam Narrative Exam Narrative: GENERAL: in no distress, not toxic not dyspneic HEAD: Normocephalic. EYES: Pupils equal round No scleral icterus. ENT: Mucous membranes moist. NECK: Trachea midline. CARDIOVASCULAR: Tachycardic irregularly irregular. RESPIRATORY: Clear to auscultation. Breath sounds equal bilaterally. No wheezes, rales, or rhonchi. GASTROINTESTINAL: Abdomen soft, non-tender : No blood at meatus. No foreign body protruding from penis. No bleeding EXTREMITIES: No gross deformities. BACK: No flank tenderness. NEURO: AOx1. Patient has history of dementia. Poor historian SKIN: Warm and dry PSYCH: Not anxious, is cooperative Initial Vital Signs Initial Vital Signs: Vital Signs Pulse Rate 118 H 10/03/21 16:22 Respiratory Rate 27 H 10/03/21 16:22 Pulse Oximetry 99 10/03/21 16:22 Oxygen Delivery Method 10/03/21 16:22 Course Course Course Narrative: No new issues during course of stay Decision to Admit Date: 10/03/21 Decision to Admit time: 19:09 Orders Ordered: ED Orders 10/03/21 21:00 COVID19 -Nasal RAPID/Pre-Proc Stat 10/03/21 21:18 Education, smoking cessation ONGOING 10/04/21 05:00 Complete Blood Count AUTO DIFF Routine Comprehensive Metabolic Panel Routine Magnesium Routine Sodium Chloride (Normal Saline 0.9%) 1,000 mls @ 100 mls/hr IV CONT TRISTAN Last Admin: 10/04/21 01:16 Dose: 60 mls/hr Documented By: MADELINE Piperacillin Sod/Tazobactam (Sod 3.375 gm/ Sodium Chloride) 100 mls @ 25 mls/hr IV Q8H TRISTAN Oxycodone HCl (Oxycodone Ir 5 Mg Tablet) 5 mg PO Q4HR PRN PRN Reason: Pain, Moderate (4-6) Discontinued Medications Diltiazem HCl (Diltiazem 5 Mg/Ml Sdv) 10 mg IV NOW ONE Stop: 10/03/21 18:17 Last Admin: 10/03/21 18:30 Dose: 10 mg Documented By: AB Sodium Chloride (Normal Saline 0.9%) 1,000 mls @ 1,000 mls/hr IV BOLUS ONE Stop: 10/03/21 18:00 Last Infusion: 10/04/21 01:15 Dose: 0 mls/hr Documented By: Admin: 10/03/21 17:31 Dose: 1,000 mls/hr Documented By: MDAELINE Piperacillin Sod/Tazobactam (Sod 4.5 gm/ Sodium Chloride) 100 mls @ 200 mls/hr IV NOW ONE Stop: 10/03/21 17:47 Last Infusion: 10/03/21 19:44 Dose: 0 mls/hr Documented By: Admin: 10/03/21 18:29 Dose: 200 mls/hr Documented By: AB Piperacillin Sod/Tazobactam (Sod 3.375 gm/ Sodium Chloride) 100 mls @ 25 mls/hr IV NOW ONE Stop: 10/04/21 02:59 Last Admin: 10/03/21 23:55 Dose: Not Given Documented By: MADELINE Piperacillin Sod/Tazobactam (Sod 3.375 gm/ Sodium Chloride) 100 mls @ 25 mls/hr IV NOW ONE Stop: 10/03/21 23:36 Last Infusion: 10/04/21 04:19 Dose: 0 mls/hr Documented By: Admin: 10/03/21 23:53 Dose: 25 mls/hr Documented By: MADELINE Reevaluation(s) Reevaluation #1: Laboratory studies have returned. Reassuring imaging as well. Consultations Consultation #1: Spoke with Urology, Dr. Veloz. Admit to hospitalist. At this time no urgent procedure [facility] but he will inform Dr. Perez needing procedure tomorrow. Time: 19:10 Consultation #2: Spoke with Dr. Veloz. He did speak with Dr. Perez. Patient has been referred to [facility] for complicated procedure including percutaneous nephrostomy due to complication from ureteral stents and retained foreign body. Will need Interventional Radiology. Time: 20:00 Consultation #3: Spoke with hospitalist, Ny, will admit for medical management until transfer to [facility] Time: 20:09 Additional Consultation(s): 2139. Spoke with [facility] urologist dr boland, she has reviewed laboratory studies as well as imaging from [facility]. No indication or need for transferring patient. She states she has looked up medical records and Dr. Ceballos with their group had teleconference with patient a week ago and plan states the same for outpatient treatment for procedures. Laboratory studies and patient is voiding and imaging is stable, patient can be admitted here for antibiotics and enough antibiotics until his procedure to prevent recurrence of UTI. I did review with Ny hospitalist here, and agrees with treatment plan. Vital Signs Vital signs: Vital Signs - 8 hr 10/03/21 16:30 10/03/21 16:22 10/03/21 16:24 Temperature 98.2 F Pulse Rate 131 H 118 H Respiratory Rate 28 H 27 H Blood Pressure 128/65 128/65 Pulse Oximetry 99 99 Oxygen Delivery Method Room Air Room Air 10/03/21 16:24 10/03/21 16:30 10/03/21 16:30 Temperature Pulse Rate 112 H 127 H Respiratory Rate 28 H 27 H Blood Pressure 122/69 Pulse Oximetry 98 98 Oxygen Delivery Method 10/03/21 17:00 10/03/21 17:00 10/03/21 17:30 Temperature Pulse Rate 130 H Respiratory Rate 27 H Blood Pressure 121/83 125/70 Pulse Oximetry 99 Oxygen Delivery Method 10/03/21 17:30 10/03/21 18:05 10/03/21 18:30 Temperature Pulse Rate 131 H 93 H 131 H Respiratory Rate 27 H 28 H Blood Pressure Pulse Oximetry 99 92 96 Oxygen Delivery Method 10/03/21 18:35 10/03/21 18:35 10/03/21 18:51 Temperature Pulse Rate 106 H Respiratory Rate 28 H Blood Pressure 132/81 123/62 Pulse Oximetry 98 Oxygen Delivery Method 10/03/21 18:51 10/03/21 19:00 10/03/21 19:00 Temperature Pulse Rate 102 H 104 H Respiratory Rate 25 H 26 H Blood Pressure 127/69 Pulse Oximetry 99 98 Oxygen Delivery Method 10/03/21 19:20 10/03/21 19:20 10/03/21 19:30 Temperature Pulse Rate 115 H 102 H Respiratory Rate 26 H 28 H Blood Pressure 116/76 Pulse Oximetry 98 98 Oxygen Delivery Method 10/03/21 19:40 10/03/21 19:40 Temperature Pulse Rate 110 H Respiratory Rate 28 H Blood Pressure 129/67 Pulse Oximetry 97 Oxygen Delivery Method Medical Decision Making Differential Diagnosis Differential Diagnosis: uti/sepsis/fb Lab Data Result diagrams: 10/03/21 16:20 10/03/21 16:20 Labs: Lab Results 10/03/21 10/03/21 10/03/21 Range/Units 16:20 16:20 16:20 WBC 6.9 (4.5-11.0) X10^3/uL RBC 4.05 L (4.5-5.9) X10^6/uL Hgb 12.2 L (13.5-17.5) g/dL Hct 36.0 L (41-53) % MCV 88.7 (80-100) fL MCH 30.2 (26-34) PG MCHC 34.0 (30-36) % RDW 14.0 (11.6-14.8) % Plt Count 235 (150-400) X10^3/uL Neut % (Auto) 74.6 (50-75) % Lymph % (Auto) 13.2 L (25-40) % Kendall % (Auto) 10.7 (3-14) % Eos % (Auto) 0.9 L (2-4) % Baso % (Auto) 0.6 (0-2) % Neut # (Auto) 5100 (6114-2988) /uL Lymph # (Auto) 900 L (5545-3892) /uL Kendall # (Auto) 700 (0-900) /uL Eos # (Auto) 100 (0-450) /uL Baso # (Auto) 0 (0-100) /uL Sodium 132 L (137-145) mmol/L Potassium 4.1 (3.4-5.1) mmol/L Chloride 97 L (98-107) mmol/L Carbon Dioxide 29 (22-32) mmol/L BUN 33 H (9-20) mg/dL Creatinine 1.11 (0.66-1.25) mg/dL Estimated GFR > 60 (>60) mL/min BUN/Creatinine Ratio 29.7 H (6-22) Glucose 114 H (80-110) mg/dL Lactate 1.6 (0.7-2.1) mmol/L Calcium 8.2 L (8.4-10.2) mg/dL Total Bilirubin 1.1 (0.2-1.3) mg/dL AST 55 (17-59) IU/L ALT 28 (<50) IU/L Alkaline Phosphatase 109 (38-126) U/L Total Creatine Kinase (55-170) U/L CK-MB (CK-2) CK-MB (CK-2) Rel Index Troponin I (0.01-0.034) ng/mL Total Protein 6.8 (6.3-8.2) g/dL Albumin 3.2 L (3.5-5.0) g/dL Globulin 3.6 (1.7-4.1) g/dL Albumin/Globulin Ratio 0.9 L (1.0-2.8) Procalcitonin 1.68 H (<0.5) ng/mL Urine Color Urine Appearance Urine pH (4.5-8.0) Ur Specific Troy (1.000-1.035) Urine Protein (Negative) Urine Glucose (UA) (Negative) g/dL Urine Ketones (NEGATIVE) Urine Occult Blood (Negative) Urine Nitrate (Negative) Urine Bilirubin (NEGATIVE) Urine Urobilinogen (0.2) E.U./dL Ur Leukocyte Esterase (NEGATIVE) Urine RBC (0-5/HPF) Urine WBC (0-5/HPF) Ur Squamous Epith Cells (0-5/HPF) Urine Bacteria (None) Ur Culture Indicated? SARS-CoV-2 (PCR) (Negative) 10/03/21 10/03/21 10/03/21 Range/Units 16:20 18:34 21:00 WBC (4.5-11.0) X10^3/uL RBC (4.5-5.9) X10^6/uL Hgb (13.5-17.5) g/dL Hct (41-53) % MCV (80-100) fL MCH (26-34) PG MCHC (30-36) % RDW (11.6-14.8) % Plt Count (150-400) X10^3/uL Neut % (Auto) (50-75) % Lymph % (Auto) (25-40) % Kendall % (Auto) (3-14) % Eos % (Auto) (2-4) % Baso % (Auto) (0-2) % Neut # (Auto) (0078-3708) /uL Lymph # (Auto) (1877-0633) /uL Kendall # (Auto) (0-900) /uL Eos # (Auto) (0-450) /uL Baso # (Auto) (0-100) /uL Sodium (137-145) mmol/L Potassium (3.4-5.1) mmol/L Chloride (98-107) mmol/L Carbon Dioxide (22-32) mmol/L BUN (9-20) mg/dL Creatinine (0.66-1.25) mg/dL Estimated GFR (>60) mL/min BUN/Creatinine Ratio (6-22) Glucose (80-110) mg/dL Lactate (0.7-2.1) mmol/L Calcium (8.4-10.2) mg/dL Total Bilirubin (0.2-1.3) mg/dL AST (17-59) IU/L ALT (<50) IU/L Alkaline Phosphatase (38-126) U/L Total Creatine Kinase 75 (55-170) U/L CK-MB (CK-2) TNP CK-MB (CK-2) Rel Index TNP Troponin I < 0.012 (0.01-0.034) ng/mL Total Protein (6.3-8.2) g/dL Albumin (3.5-5.0) g/dL Globulin (1.7-4.1) g/dL Albumin/Globulin Ratio (1.0-2.8) Procalcitonin (<0.5) ng/mL Urine Color Yellow Urine Appearance Cloudy Urine pH 5.5 (4.5-8.0) Ur Specific Troy 1.010 (1.000-1.035) Urine Protein 2+ H (Negative) Urine Glucose (UA) Negative (Negative) g/dL Urine Ketones Negative (NEGATIVE) Urine Occult Blood 3+ H (Negative) Urine Nitrate Positive H (Negative) Urine Bilirubin Negative (NEGATIVE) Urine Urobilinogen 0.2 (0.2) E.U./dL Ur Leukocyte Esterase 2+ H (NEGATIVE) Urine RBC >100/hpf H (0-5/HPF) Urine WBC 30-100/hpf H (0-5/HPF) Ur Squamous Epith Cells 0-1 /hpf (0-5/HPF) Urine Bacteria Many (>30) H (None) Ur Culture Indicated? Specimen cultured SARS-CoV-2 (PCR) Negative (Negative) Imaging Data CT scan - abdomen/pelvis: Radiologist's Impression: [address] [address] [address] Scan Report Signed Patient: Rodolfo Hawthorne MR#: [id number] : 1940 Acct:[id number] Age/Sex: 81 / M Date of Service: 10/03/21 Loc: ED Accession Number: [id number] ?? Procedure: CT abdomen pelvis wo con Ordering Provider: Janelle Marie D.O. PROCEDURE:? CT ABDOMEN PELVIS WO CON ? INDICATIONS:? retained bladder wire with fever ? TECHNIQUE:? Axial sections were acquired from the lung bases to the pubic symphysis.? Coronal and sagittal reformats were performed.? For radiation dose reduction, the following was used: ?automated exposure control, adjustment of mA and/or kV according to patient size.? ? COMPARISON:? [facility], RG, CT ABDOMEN/PELVIS WITHOUT CONTRAST, 08/10/2021, 15:14.? [facility], CR, XR KUB, 09/21/2021, 14:42.? [facility], CT, CT KIDNEY URETER BLADDER (KUB), 09/21/2021, 15:41. ? FINDINGS:? Image quality:? Excellent.? ? Lung bases:? Focal infiltrate or consolidation.? No pleural effusions.? Small hiatal hernia.? Heart:? Moderate cardiomegaly.? No pericardial effusion.? Moderate coronary artery calcification. ? URINARY: Right Kidney and ureter:? There are 2 ureteral stents.? There are multiple stones in right kidney.? The largest stone measures 9 x [address] density 669 HU.? Trace pelviectasis and perinephric stranding.? .? Left Kidney and ureter:? There is a ureteral stent.? A 6 x 12 mm stone is seen in the left renal pelvis, demonstrating CT density 510 HU.? Trace renal pelviectasis and perinephric stranding.? ? Bladder:? Mild bladder wall thickening.? Normal wall thickness. No stones. There is a linear hyperdensity within the bladder and urethra.? ABDOMEN: Liver:? Unremarkable.? ? Gallbladder:? There are multiple gallstones.? No CT findings to suggest acute cholecystitis.? ? Biliary ducts:? Unremarkable.? ? Pancreas:? Unremarkable.? ? Spleen:? Unremarkable.? ? Adrenal Glands:? Unremarkable.? ? ? Stomach and Bowel:? Stomach, small bowel loops, and colon are normal in caliber.? There is a large amount of stool in the rectum.? Diverticulosis.? No acute diverticulitis. Peritoneum:? No abnormal intraperitoneal fluid.? No free air.? ? Ventral Wall: ? No hernia.? Abdominal Nodes:? No enlarged retroperitoneal or mesenteric lymph nodes.? Vessels:? Aorta and inferior vena cava are normal in size.? There is an IVC filter.? Severe atherosclerotic calcifications of aorta. ? PELVIS: Pelvic Organs:? Prostate is prominent. Pelvic Nodes: Unremarkable. Miscellaneous: No inguinal hernias are seen. ? ? ? Bones:? Scoliosis.? Severe degenerative changes in lumbar spine.? Severe osteoarthritis of the hips. ? IMPRESSION:? ? 1. Nephrolithiasis bilaterally.? There are 2 ureteral stent on the left and a single stent on the left.? Trace renal pelviectasis and perinephric stranding bilaterally. 2. Mild bladder wall thickening.? No bladder stones.? There is a wire within the bladder and urethra. 3. Diverticulosis without acute diverticulitis. 4. Cholelithiasis.? No acute cholecystitis.? Dictated by: Willie Dale M.D. on 10/03/2021 at 18:40 ? ? Approved by: Willie Dale M.D. on 10/03/2021 at 18:52 ? CT scan - head: Radiologist's Impression: [place] [address] CT Scan Report Signed Patient: Rodolfo Hawthorne MR#: [id number] : 1940 Acct:[id number] Age/Sex: 81 / M Date of Service: 10/03/21 Loc: ED Accession Number: [id number] ?? Procedure: CT head/brain wo con Ordering Provider: Steve Mcfarlane MD PROCEDURE:? CT HEAD/BRAIN WO CON ? INDICATIONS:? Altered mental status ? TECHNIQUE:? Noncontrast 4.5 mm thick angled axial sections acquired from the foramen magnum to the vertex, with coronal and sagittal reformats.? For radiation dose reduction, the following was used:? automated exposure control, adjustment of mA and/or kV according to patient size.? ? COMPARISON:? None. ? FINDINGS:? Image quality:? Excellent.? ? CSF spaces:? Basal cisterns are patent.? No extra-axial fluid collections.? The ventricles are dilated but symmetric in size and shape.? ? Brain:? No intracranial bleeds or masses.? There is severe cerebral volume loss for age, with resultant ventricular and sulcal prominence.? There are periventricular and deep white matter chronic small vessel ischemic changes.? There is intracranial internal carotid artery atherosclerosis.? ? Skull and face:? Calvarium and visualized facial bones appear intact, without s uspicious lesions.? ? Sinuses:? Visualized sinuses and mastoids are clear.? ? IMPRESSION:? ? 1. No acute intracranial abnormalities. 2. Cerebral volume loss and chronic microvascular ischemic changes. 3.? Ventricular dilation may be secondary to central atrophy or normal pressure hydrocephalus.? Recommend clinical correlation. ? ? Dictated by: Willie Dale M.D. on 10/03/2021 at 18:56 ? ? Approved by: Willie Dale M.D. on 10/03/2021 at 18:57 ? MDM Narrative Medical decision making narrative: Appropriate for admission as patient needs removal foreign body. Urology service ear for continuity of care. Antibiotics have been started. Patient not toxic. Rate control with Cardizem. Patient will be boarded here [facility]. However [facility] urology has been contacted/paged for transfer as well. Discharge Plan Departure Patient Disposition: Admitted as Observation Clinical Impression: Foreign body in penile urethra, Acute UTI Admit Date/Time: 10/03/21 21:41 Admit Provider: Ny Mcdonald
[2021-10-03 18:55] LABS: Appearance Urine UA CLOUDY; Bilirubin Urine UA NEGATIVE (NEGATIVE); Color Urine UA YELLOW; Glucose Urine UA NEGATIVE (Negative); Ketones Urine UA NEGATIVE (NEGATIVE); Leukocyte Esterase Urine UA 2+ (NEGATIVE); Nitrite Urine UA POSITIVE (Negative); Occult Blood Urine UA 3+ (Negative); Protein Urine UA 2+ (Negative); Urobilinogen Urine UA 0.2 E.U./dL (0.2); pH Urine UA 5.5 (4.5-8.0)
[2021-10-03 19:02] LABS: Bacteria Urine Many (>30); Culture Indicated Urine Specimen Cultured; RBC Urine >100/HPF (0-5/HPF); Squamous Epithelial Cell Urine 0-1 /HPF (0-5/HPF); WBC Urine 30-100/HPF (0-5/HPF)
--- NOTE | 2021-10-03 20:45 | PC.NURSE ---
while preforming charmaine-care. a skin inspection of patient's back side revealed pressure ulcers bilaterally on buttocks. stage 2
[2021-10-03 21:21] LABS: COVID19 -Nasal RAPID Negative (Negative)
[2021-10-03] MEDS: PIPERACILLIN/TAZO 3.375 GM in SODIUM CHLORIDE 0.9% 100 ML IV (23:53)
[2021-10-04] VITALS (23 sets, daily range): BP systolic 100–130; BP diastolic 55–77; PULSE 80–128; RESP 14–42; TEMP 36.4–36.8; O2SAT 92–99; BMI 26.9
[2021-10-04] MEDS: SODIUM CHLORIDE 0.9% 1,000 ML 60 ML IV (01:16)
--- NOTE | 2021-10-04 04:32 | PM.HP.1 ---
History of Present Illness History of Present Illness Date Patient Seen: 10/03/21 Time Patient Seen: 21:35 Chief complaint: Abnormal labs Narrative: Rodolfo Hawthorne is a 81-year-old male with a history of Alzheimer's, AFib on anticoagulation, CHF, COPD, CAD, bilateral nephrolithiasis, and bilateral ureteral calculi, BPH with urinary obstructionwho was?sent to the ED long term for evaluation of altered mental status and possible sepsis. Patient is DNR DNI with selective treatment. Patient was seen 2 weeks ago for evaluation of a stuck guidewire from mouth left ureteral stent that was placed here.? Katz catheter was attempted to be removed by long term staff however the guidewire came out with it.? The extended guidewire was cut at the meatus to prevent any injury.? Patient had long stay here in the emergency department and unable to transfer in the facilities for further treatment.? [facility] urology was consulted and Dr. Perez. ED Consult Dr. Mcfarlane [id number]: Spoke with [facility] urologist dr boland, she has reviewed laboratory studies as well as imaging from [facility].? No indication or need for transferring patient.? She states she has looked up medical records and Dr. Ceballos with their group had teleconference with patient a week ago and plan states the same for outpatient treatment for procedures.? Laboratory studies and patient is voiding and imaging is stable, patient can be admitted here for antibiotic treatment for UTI and to continue antibiotics until his procedure to prevent recurrence of UTI, for FB removal from urethra and bladder.? Upon admit patient is boarding in the ED and is pleasantly confused but and able to communicate beyond stating that he denies any pain. Patient's vitals upon admit temp 98.2?, BP 129/67, HR 110, RR 28, O2 saturation 97% on room air, BMI 29.5. Patient is currently in AFib rate controlled 110. HGB 12.2, HCT 36, sodium 132, chloride 97, BUN 33, glucose 114, RBC 4.05, albumin 3.2, procalcitonin 1.68, UA is positive for protein blood nitrates bacteria many, and RBC >100. Urine is sent for culture. Head CT demonstrated no acute abnormalities. CT the abdomen pelvis demonstrated diverticulosis, cholelithiasis, ?nephrolithiasis bilaterally, with 2 ureteral stent on the left and a single stent on the left.? Trace renal pelviectasis and perinephric stranding bilaterally. Mild bladder wall thickening.? No bladder stones.? There is a wire within the bladder and urethra. Patient admitted for encephalopathy secondary to UTI, and foreign bodies in the urethra and bladder. 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) Hypercholesterolemia Left ureteral calculus MRSA (methicillin resistant Staphylococcus aureus) Renal calculus, right Renal colic on left side Retained ureteral stent Surgical History H/O circumcision H/O vasectomy History of cataract extraction History of coronary artery stent placement History of incision and drainage History of knee replacement (1996) History of knee replacement (1999) History of urologic surgery (06/16/20) Hx of CABG (2010) Hx of cystoscopy (07/20/21) Family & Social History Family History Mother Cancer Sister Cancer Father Coronary artery disease Social History: household members family Safety & Behavioral: Feels Safe in Current Yes Environment Been Physically Hurt or No Threatened By a Person Tobacco & Substance use: Tobacco type cigarettes Smoking Status Former smoker alcohol intake never alcohol intake frequency holiday/special occasion Substance Use Type does not use Meds Home Medications and Allergies Home Medications Medication Instructions Recorded Confirmed Type aspirin 81 mg chewable tablet 81 mg PO DAILY 03/16/20 08/27/21 History atorvastatin 20 mg tablet (Lipitor) 20 mg PO DAILY 03/16/20 08/27/21 History calcium carbonate 500 mg-vitamin 1 tab PO DAILY 03/16/20 08/27/21 History D3 15 mcg (600 unit) tablet donepezil 10 mg tablet 10 mg PO QPM 03/16/20 08/27/21 History fluticasone propionate 230 2 puff inhalation BID PRN Cough 03/16/20 08/27/21 History mcg-salmeterol 21 mcg/actuation HFA inhaler (Advair HFA) multivitamin (Daily Multi-Vitamin 1 tab PO DAILY 03/16/20 08/27/21 History tablet) tamsulosin 0.4 mg capsule (Flomax) 0.8 mg PO BEDTIME 03/16/20 08/27/21 History metoprolol tartrate 50 mg tablet 12.5 mg PO BID 06/16/20 08/27/21 History oxycodone 5 mg tablet 5 mg PO Q4H PRN pain #10 tabs 08/27/21 Rx Allergies Allergy/AdvReac Type Severity Reaction Status Date / Time lisinopril AdvReac Mild Light-heade Verified 08/27/21 08:18 d/Dizzy shellfish derived AdvReac Mild Nausea & Verified 08/27/21 08:18 Sweat Review of Systems Review of Systems Narrative: Patient unable to participate in HPI, ROS due to encephalopathy in the setting of Alzheimer's dementia. Exam Vital Signs (past 8 hours): - 10/03/21 21:00 10/03/21 21:00 10/03/21 21:30 Pulse Rate 133 H 124 H Respiratory Rate 29 H 35 H Blood Pressure 113/67 Pulse Oximetry 97 96 10/03/21 22:00 10/03/21 22:30 10/03/21 23:00 Pulse Rate 127 H 118 H Respiratory Rate 46 H 35 H Blood Pressure 100/68 Pulse Oximetry 94 93 10/03/21 23:00 10/03/21 23:30 Pulse Rate 129 H 121 H Respiratory Rate 31 H 28 H Blood Pressure Pulse Oximetry 95 96 Oxygen Delivery Method Room Air Narrative Exam Narrative: GENERAL: Patient is an elderly male, confused, unable to verbalize or communicate only that he does not have pain, patient is in no distress at this time. HEAD: Normocephalic. EYES: Pupils equal round? No scleral icterus. ENT:? Mucous membranes moist.? NECK: Trachea midline. CARDIOVASCULAR:? Tachycardic irregularly irregular. RESPIRATORY: Clear to auscultation. Breath sounds equal bilaterally. No wheezes, rales, or rhonchi.? GASTROINTESTINAL: Abdomen soft, non-tender :? No blood at meatus.? No foreign body protruding from penis.? No bleeding EXTREMITIES:? No gross deformities.? BACK:? No flank tenderness. NEURO: Patient is alert, unable to communicate or converse at this time. SKIN:? Warm and dry Objective Labs Result Diagrams: 10/03/21 16:20 10/03/21 16:20 Labs: Laboratory Results - last 24 hr 10/03/21 10/03/21 10/03/21 16:20 16:20 16:20 WBC 6.9 RBC 4.05 L Hgb 12.2 L Hct 36.0 L MCV 88.7 MCH 30.2 MCHC 34.0 RDW 14.0 Plt Count 235 Neut % (Auto) 74.6 Lymph % (Auto) 13.2 L [place] % (Auto) 10.7 Eos % (Auto) 0.9 L Baso % (Auto) 0.6 Neut # (Auto) 5100 Lymph # (Auto) 900 L [place] # (Auto) 700 Eos # (Auto) 100 Baso # (Auto) 0 Sodium 132 L Potassium 4.1 Chloride 97 L Carbon Dioxide 29 BUN 33 H Creatinine 1.11 Estimated GFR > 60 BUN/Creatinine Ratio 29.7 H Glucose 114 H Lactate 1.6 Calcium 8.2 L Total Bilirubin 1.1 AST 55 ALT 28 Alkaline Phosphatase 109 Total Creatine Kinase CK-MB (CK-2) CK-MB (CK-2) Rel Index Troponin I Total Protein 6.8 Albumin 3.2 L Globulin 3.6 Albumin/Globulin Ratio 0.9 L Procalcitonin 1.68 H Urine Color Urine Appearance Urine pH Ur Specific [place] Urine Protein Urine Glucose (UA) Urine Ketones Urine Occult Blood Urine Nitrate Urine Bilirubin Urine Urobilinogen Ur Leukocyte Esterase Urine RBC Urine WBC Ur Squamous Epith Cells Urine Bacteria Ur Culture Indicated? SARS-CoV-2 (PCR) 10/03/21 10/03/21 10/03/21 16:20 18:34 21:00 WBC RBC Hgb Hct MCV MCH MCHC RDW Plt Count Neut % (Auto) Lymph % (Auto) [place] % (Auto) Eos % (Auto) Baso % (Auto) Neut # (Auto) Lymph # (Auto) [place] # (Auto) Eos # (Auto) Baso # (Auto) Sodium Potassium Chloride Carbon Dioxide BUN Creatinine Estimated GFR BUN/Creatinine Ratio Glucose Lactate Calcium Total Bilirubin AST ALT Alkaline Phosphatase Total Creatine Kinase 75 CK-MB (CK-2) TNP CK-MB (CK-2) Rel Index TNP Troponin I < 0.012 Total Protein Albumin Globulin Albumin/Globulin Ratio Procalcitonin Urine Color Yellow Urine Appearance Cloudy Urine pH 5.5 Ur Specific [place] 1.010 Urine Protein 2+ H Urine Glucose (UA) Negative Urine Ketones Negative Urine Occult Blood 3+ H Urine Nitrate Positive H Urine Bilirubin Negative Urine Urobilinogen 0.2 Ur Leukocyte Esterase 2+ H Urine RBC >100/hpf H Urine WBC 30-100/hpf H Ur Squamous Epith Cells 0-1 /hpf Urine Bacteria Many (>30) H Ur Culture Indicated? Specimen cultured SARS-CoV-2 (PCR) Negative Assessment & Plan Assessment & Plan narrative: Rodolfo Hawthorne is an 81-year-old male with guide wires(foreign bodies) in both his bladder and urethra that require surgical removal who presented to the ED with encephalopathy in the setting of chronic Alzheimer's secondary to UTI. Will treat patient's UTI, discharge him home on oral antibiotics until procedure can be performed as an outpatient at the request of [facility] urology. 1. Encephalopathy secondary to UTI, as result of foreign bodies in the urethra and bladder, acute, present on admit -Zosyn IV q.8 hours -Continue IV fluids -Urine culture pending -CRP, ESR ordered. -patient to follow-up with [facility] urology for outpatient procedure to remove foreign bodies. -held VTE prophylaxis due to blood +3 in the urine, HGB 12.2, HCT 36 2. Mild hyponatremia as evidence by sodium of 132, acute, present on admission -NS at 60 -recheck sodium in a.m. 3. Chronic AFib, stable, rate controlled, acute on chronic, present on admission -continue metoprolol 12.5 BID 4. Alzheimer's dementia, acute on chronic, present on admission -continue donepezil 10mg 5. Hypertension, chronic, present on admission -continue metoprolol 12.5 b.i.d. 6. BPH with obstruction, acute on chronic, present on admission -Continue to tamsulosin 0.8 mg nightly. Code status: DNR DNI Surrogate decision maker: Stefania Culver sister MARITZA PCR:Negative DVT/VTE prophylaxis:SCD's only- medication held due to blood in urine and low H&H Disposition: Patient admitted for observation expected length of stay less than 2 midnights. I have utilized all available immediate resources to obtain, update, or review the patient's current medications. I confirmed that the patient's advanced care plan is present, Code status is documented and/or surrogate decision maker is listed in the patient's medical record. Time Spent With Patient Critical Care time: I spent a total of [] minutes of critical care time on this patient's care today; this time is exclusive of procedural time.
[2021-10-04 06:43] LABS: Add Manual Diff / Slide Review NO; Basophils Absolute Auto 0 /uL (0-100); Basophils Percent Auto 0.7 % (0-2); Eosinophils Absolute Auto 100 /uL (0-450); Eosinophils Percent Auto 0.9 % (2-4); Hematocrit 33.5 % (41-53); Hemoglobin 11.3 g/dL (13.5-17.5); Lymphocytes Absolute Auto 700 /uL (1100-4500); Lymphocytes Percent Auto 11.5 % (25-40); Mean Corpuscular HGB Conc 33.8 % (30-36); Mean Corpuscular Volume 88.7 fL (80-100); Monocytes Absolute Auto 700 /uL (0-900); Monocytes Percent Auto 11.6 % (3-14); Neutrophils Absolute Auto 4800 /uL (1500-7000); Neutrophils Percent Auto 75.3 % (50-75); Platelet Count 186 X10^3/uL (150-400); Red Blood Cell Count 3.78 X10^6/uL (4.5-5.9); Red Cell Distribution Width 14.2 % (11.6-14.8); White Blood Cell Count 6.4 X10^3/uL (4.5-11.0)
[2021-10-04 07:04] LABS: Alanine Aminotransferase 22 IU/L (<50); Albumin 2.6 g/dL (3.5-5.0); Albumin Globulin Ratio 0.8 (1.0-2.8); Alkaline Phosphatase 81 U/L (38-126); Aspartate Aminotransferase 38 IU/L (17-59); BUN Creatinine Ratio 23.6 (6-22); Blood Urea Nitrogen 26 mg/dL (9-20); Calcium 7.7 mg/dL (8.4-10.2); Carbon Dioxide 28 mmol/L (22-32); Chloride 105 mmol/L (98-107); Estimated Glomerular Filt Rate > 60 mL/min (>60); Globulin 3.1 g/dL (1.7-4.1); Glucose 109 mg/dL (80-110); HEMOLYSIS < 15 (0-50); Magnesium 1.9 mg/dL (1.6-2.3); Potassium 3.9 mmol/L (3.4-5.1); Sodium 136 mmol/L (137-145); Total Protein 5.7 g/dL (6.3-8.2)
[2021-10-04] MEDS: PIPERACILLIN/TAZO 3.375 GM in SODIUM CHLORIDE 0.9% 100 ML IV ×3 (07:33→23:19)
--- NOTE | 2021-10-04 09:55 | PC.RNWOUND ---
Patient resting in bed, turns to side with max assist. There is skin breakdown noted to the buttocks which appear as mixed etiology of MASD and pressure as there are multiple superficial irregularly-shaped areas of discoloration (see photo) and redness in the intergluteal cleft and perineum up to the scrotum and even up to and around penis, also in groin folds. (Patient is incontinent of bowel and bladder and has very limited mobility.) There is a wound to the Left Buttock which measures 4.8 x 4.8 x 0.1cm appearing as a stage 2 pressure injury. This wound is partial-thickness and irregularly shaped with no drainage at this time, edges are dry and intact. There is also a 3 x 0.7 x 0.05cm on the right side of the intergluteal cleft which appears to be related to IAD as it is in the reddened skin fold and not over a bony prominence. Patient is cleaned up and barrier cream is applied to groin and perineum and gluteal fold. Patient is positioned of left buttock with assist of 3 staff, 30 degree tilt, heels floated with pillow, head of bed at 30 degrees. Patient tolerates cares well.
--- NOTE | 2021-10-04 10:01 | PC.RNWOUND ---
Addendum entered by Gisselle Phillips R.N. 10/04/21 10:10: pt identifier Original Note: Sacrogluteal area
[2021-10-04] MEDS: SODIUM CHLORIDE 0.9% 1,000 ML 1000 ML IV (13:33)
[2021-10-04] MEDS: METOPROLOL IR 50 MG TABLET 12.5 MG PO (13:40)
--- NOTE | 2021-10-04 13:45 | PM.PN.1 ---
Subjective Subjective Date Patient Seen: 10/04/21 Time Patient Seen: 11:00 Interval history: Today he is quite confused. He denies any pain, but he is not able to reliably tell me how he is feeling. Exam Vital Signs (past 8 hours): - 10/04/21 06:00 10/04/21 06:00 10/04/21 06:30 Temperature Pulse Rate 113 H 116 H Respiratory Rate 24 24 Blood Pressure 109/66 Pulse Oximetry 93 Oxygen Delivery Method Oxygen Flow Rate 10/04/21 07:00 10/04/21 07:00 10/04/21 07:30 Temperature Pulse Rate 120 H 114 H Respiratory Rate 24 22 Blood Pressure 116/70 Pulse Oximetry Oxygen Delivery Method Oxygen Flow Rate 10/04/21 07:36 10/04/21 07:36 10/04/21 08:00 Temperature Pulse Rate 128 H Respiratory Rate 22 Blood Pressure 115/69 114/63 Pulse Oximetry Oxygen Delivery Method Oxygen Flow Rate 10/04/21 08:00 10/04/21 08:30 10/04/21 08:30 Temperature Pulse Rate 128 H 121 H Respiratory Rate 22 22 Blood Pressure 130/76 Pulse Oximetry Oxygen Delivery Method Oxygen Flow Rate 10/04/21 08:50 10/04/21 06:57 10/04/21 07:00 Temperature 97.5 F L Pulse Rate 128 H Respiratory Rate 22 Blood Pressure 109/56 L Pulse Oximetry 99 Oxygen Delivery Method Room Air Room Air Oxygen Flow Rate 0 Oxygen Delivery Method Room Air Oxygen Flow Rate 0 Narrative Exam Narrative: GENERAL: confused, not in any notable distress CARDIOVASCULAR:? tachycardic RESPIRATORY: clear bilaterally GASTROINTESTINAL: soft, non-tender Objective Labs Result Diagrams: 10/04/21 06:06 10/04/21 06:06 Labs: Laboratory Results - last 24 hr 10/03/21 10/03/21 10/03/21 16:20 16:20 16:20 WBC 6.9 RBC 4.05 L Hgb 12.2 L Hct 36.0 L MCV 88.7 MCH 30.2 MCHC 34.0 RDW 14.0 Plt Count 235 Neut % (Auto) 74.6 Lymph % (Auto) 13.2 L [place] % (Auto) 10.7 Eos % (Auto) 0.9 L Baso % (Auto) 0.6 Neut # (Auto) 5100 Lymph # (Auto) 900 L [place] # (Auto) 700 Eos # (Auto) 100 Baso # (Auto) 0 Sodium 132 L Potassium 4.1 Chloride 97 L Carbon Dioxide 29 BUN 33 H Creatinine 1.11 Estimated GFR > 60 BUN/Creatinine Ratio 29.7 H Glucose 114 H Lactate 1.6 Calcium 8.2 L Magnesium Total Bilirubin 1.1 AST 55 ALT 28 Alkaline Phosphatase 109 Total Creatine Kinase CK-MB (CK-2) CK-MB (CK-2) Rel Index Troponin I Total Protein 6.8 Albumin 3.2 L Globulin 3.6 Albumin/Globulin Ratio 0.9 L Procalcitonin 1.68 H Urine Color Urine Appearance Urine pH Ur Specific [place] Urine Protein Urine Glucose (UA) Urine Ketones Urine Occult Blood Urine Nitrate Urine Bilirubin Urine Urobilinogen Ur Leukocyte Esterase Urine RBC Urine WBC Ur Squamous Epith Cells Urine Bacteria Ur Culture Indicated? SARS-CoV-2 (PCR) 10/03/21 10/03/21 10/03/21 16:20 18:34 21:00 WBC RBC Hgb Hct MCV MCH MCHC RDW Plt Count Neut % (Auto) Lymph % (Auto) [place] % (Auto) Eos % (Auto) Baso % (Auto) Neut # (Auto) Lymph # (Auto) [place] # (Auto) Eos # (Auto) Baso # (Auto) Sodium Potassium Chloride Carbon Dioxide BUN Creatinine Estimated GFR BUN/Creatinine Ratio Glucose Lactate Calcium Magnesium Total Bilirubin AST ALT Alkaline Phosphatase Total Creatine Kinase 75 CK-MB (CK-2) TNP CK-MB (CK-2) Rel Index TNP Troponin I < 0.012 Total Protein Albumin Globulin Albumin/Globulin Ratio Procalcitonin Urine Color Yellow Urine Appearance Cloudy Urine pH 5.5 Ur Specific [place] 1.010 Urine Protein 2+ H Urine Glucose (UA) Negative Urine Ketones Negative Urine Occult Blood 3+ H Urine Nitrate Positive H Urine Bilirubin Negative Urine Urobilinogen 0.2 Ur Leukocyte Esterase 2+ H Urine RBC >100/hpf H Urine WBC 30-100/hpf H Ur Squamous Epith Cells 0-1 /hpf Urine Bacteria Many (>30) H Ur Culture Indicated? Specimen cultured SARS-CoV-2 (PCR) Negative 10/04/21 10/04/21 06:06 06:06 WBC 6.4 RBC 3.78 L Hgb 11.3 L Hct 33.5 L MCV 88.7 MCH 30.0 MCHC 33.8 RDW 14.2 Plt Count 186 Neut % (Auto) 75.3 H Lymph % (Auto) 11.5 L [place] % (Auto) 11.6 Eos % (Auto) 0.9 L Baso % (Auto) 0.7 Neut # (Auto) 4800 Lymph # (Auto) 700 L [place] # (Auto) 700 Eos # (Auto) 100 Baso # (Auto) 0 Sodium 136 L Potassium 3.9 Chloride 105 Carbon Dioxide 28 BUN 26 H Creatinine 1.10 Estimated GFR > 60 BUN/Creatinine Ratio 23.6 H Glucose 109 Lactate Calcium 7.7 L Magnesium 1.9 Total Bilirubin 1.0 AST 38 ALT 22 Alkaline Phosphatase 81 Total Creatine Kinase CK-MB (CK-2) CK-MB (CK-2) Rel Index Troponin I Total Protein 5.7 L Albumin 2.6 L Globulin 3.1 Albumin/Globulin Ratio 0.8 L Procalcitonin Urine Color Urine Appearance Urine pH Ur Specific [place] Urine Protein Urine Glucose (UA) Urine Ketones Urine Occult Blood Urine Nitrate Urine Bilirubin Urine Urobilinogen Ur Leukocyte Esterase Urine RBC Urine WBC Ur Squamous Epith Cells Urine Bacteria Ur Culture Indicated? 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) Hypercholesterolemia Left ureteral calculus MRSA (methicillin resistant Staphylococcus aureus) Renal calculus, right Renal colic on left side Retained ureteral stent Surgical History H/O circumcision H/O vasectomy History of cataract extraction History of coronary artery stent placement History of incision and drainage History of knee replacement (1996) History of knee replacement (1999) History of urologic surgery (06/16/20) Hx of CABG (2010) Hx of cystoscopy (07/20/21) Family History Mother Cancer Sister Cancer Father Coronary artery disease Social History marital status: unmarried,single household members: family occupational status: previously employed Smoking Status: Former smoker alcohol intake: never caffeine: No Assessment & Plan Assessment & Plan narrative: 81M with PMH known foreign body in bladder/urethra and pending outpatient removal of this and stent who presents to the hospital with UTI, encephalopathy. 1. Sepsis with Encephalopathy secondary to UTI/pyelonephritis -Zosyn IV q.8 hours -due to tachycardia bolus IV fluids, and then increase maintenance rate -Urine, blood culture pending -patient to follow-up with [facility] urology for outpatient procedure to remove foreign bodies. -held VTE prophylaxis due to blood +3 in the urine -bladder scan q12 to make sure no urinary retention 2. Mild hyponatremia as evidence by sodium of 132, resolved 3. Chronic AFib, with tachycardia -continue metoprolol 12.5 BID 4. Alzheimer's dementia, acute on chronic, present on admission -continue donepezil 10mg 5. Hypertension, chronic, present on admission -continue metoprolol 12.5 b.i.d. 6. BPH with obstruction, acute on chronic, present on admission -Continue to tamsulosin 0.8 mg nightly. Code status: DNR DNI Surrogate decision maker: Stefania Culver sister Time Spent With Patient Critical Care time: I spent a total of [] minutes of critical care time on this patient's care today; this time is exclusive of procedural time. Quality VTE Deep Vein Thrombosis/Pulmonary Embolism Present on Admission: No
--- NOTE | 2021-10-04 14:00 | CM.DANOTE ---
Initial Discharge Planning Note: Case received, EMR reviewed. Met with patient and spouse in his room. Payer: Medicare and BCBS out of [facility] PCP: Dr Sol Leroy, Dr Marie 81 year old male with h/o Alzheimers, Afib on anticoagulation, CHF, COPD, CAD, bilateral nephrolithiasis and bilateral ureteral calculi. Seen 2 weeks ago for a stuck guidewire for ureteral stent that was placed here. Guidewire came out when SNF removed f/c. [facility] and Dr Perez were consulted. Patient will go to have outpatient surgery for guidewire next , October 11, per spouse. Patient had previously lived with spouse at their home in [place] and when stabilizes will possibly return there, but questionable because patient has recently stopped ambulating. P: When stabilized here, return to [facility]. Urvashi Monterroso RN/ARTISP Discharge Planning/Care Management CM Discharge Assessment Start: 10/04/21 13:55 Freq: Status: Active Protocol: Document 10/04/21 13:55 (Rec: 10/04/21 14:00 [id number]) Discharge Planning Assessment Assigned Grinder Set Up Operator Thread Tool Urvashi Santos RN/ARTISP Advance Directives? Yes Advance Directives on File No History Provided By Patient,Family Member,Medical Record Prior Living Arrangements Skilled Nurse Facility Comment Has been in [facility] since last surgery in September Household Members family Type of transporation used prior to Relies on Others admit Facility Name Admitted From: [facility] Willing to Return to Facility? Yes Independent with ADL's No Is patient alert and oriented? No Caregiver for Another No Patient/Family Preference [facility] Facility Comment Patient will return to [facility] (formerly [facility]), he will be there until goes to next week for ureteral surgery and then possibly to return home to [place] with spouse. Barriers to Discharge No Discharge Plan [facility] Transportation Arrangement [facility] Additional Comment Notify [facility] for discharge Whiteboard Updated in Patient Room with Yes name and ext. # of Grinder Set Up Operator Thread Tool Review Status In Process Next Review Type Continued Stay Review
[2021-10-04] MEDS: SODIUM CHLORIDE 0.9% 1,000 ML 125 ML IV (15:05)
--- NOTE | 2021-10-04 17:24 | PC.NURSE ---
Pt admitted to the unit from ED around 0915 this morning. Pt is AxOx1, calm and cooperative. VSS, pt denies pain. Pt is incontinent x2; pt has stage II ulcer related to moisture and immobility on coccyx and butt cheeks. Photos are in chart. Q1h turn and applied barrier cream. Bladder scan 295 and pt is voiding incontinent adequately. Otherwise, no changes. Pt is from [facility]. Pt was scheduled to have outpt surgery on 10/11 at so pt's Aspirin is on hold from today. No other changes.
[2021-10-04] MEDS: TAMSULOSIN 0.4 MG CAPSULE 0.8 MG PO (20:36)
[2021-10-04] MEDS: ATORVASTATIN 20 MG TABLET PO (20:36)
--- NOTE | 2021-10-04 23:16 | PC.NURSE ---
Spoke with Hospitalist Barrett Mcdonald, order given to discontinue Asprin 81 mg due to anticipated surgery.
[2021-10-05 04:30] VITALS: BP 112/56; PULSE 93; RESP 16; TEMP 36.5; O2SAT 96
[2021-10-05 06:00] VITALS: BP 101/50; PULSE 64; RESP 17; TEMP 36.4; O2SAT 96
[2021-10-05 06:23] LABS: Hematocrit 32.3 % (41-53); Hemoglobin 10.9 g/dL (13.5-17.5); Mean Corpuscular HGB Conc 33.6 % (30-36); Mean Corpuscular Hemoglobin 30.1 PG (26-34); Mean Corpuscular Volume 89.3 fL (80-100); Platelet Count 194 X10^3/uL (150-400); Red Blood Cell Count 3.62 X10^6/uL (4.5-5.9); Red Cell Distribution Width 13.9 % (11.6-14.8); White Blood Cell Count 6.6 X10^3/uL (4.5-11.0)
[2021-10-05 06:25] LABS: BUN Creatinine Ratio 18.2 (6-22); Blood Urea Nitrogen 18 mg/dL (9-20); Calcium 7.6 mg/dL (8.4-10.2); Carbon Dioxide 27 mmol/L (22-32); Chloride 109 mmol/L (98-107); Estimated Glomerular Filt Rate > 60 mL/min (>60); Glucose 101 mg/dL (80-110); HEMOLYSIS < 15 (0-50); Potassium 3.6 mmol/L (3.4-5.1); Sodium 140 mmol/L (137-145)
[2021-10-05] MEDS: PIPERACILLIN/TAZO 3.375 GM in SODIUM CHLORIDE 0.9% 100 ML IV (06:26)
[2021-10-05] MEDS: METOPROLOL IR 50 MG TABLET 12.5 MG PO ×2 (08:53→20:13)
--- NOTE | 2021-10-05 11:04 | DIET.CONS2 ---
Dietary Inpatient Consultation Note Admission Date: 10/03/2021 21:41 RD consulted on this 81y M c encephalopathy secondary to UTI for low Valente score (13) c wounds on bottom. Sending pt ONS Brayden bid to support wound healing while hospitalized. Diet: 10/04/21 Breakfast Heart Healthy Diet Diet Modifications: ONS Brayden bid to support wounds Sodium Level: 2 gm Sodium Nutrition Percent Meal Consumed 75% 10/05/21 08:00 Percent Meal Consumed 50% 10/04/21 18:00 Electronically Signed by: Zoya Yusuf 10/05/21 11:04 Clinical Dietitian [address] [id number]
[2021-10-05 12:00] VITALS: BP 115/59; PULSE 61; RESP 18; TEMP 36.3; O2SAT 98
--- NOTE | 2021-10-05 17:05 | P.PN_ITS ---
Subjective Subjective Date Patient Seen: 10/05/21 Time Patient Seen: 08:00 Interval history: Today he has no complaints, however he remains quite confused. Exam Vital Signs (past 8 hours): - 10/05/21 12:00 Temperature 97.4 F L Pulse Rate 61 Respiratory Rate 18 Blood Pressure 115/59 L Pulse Oximetry 98 Oxygen Flow Rate 0 Oxygen Delivery Method Room Air Oxygen Flow Rate 0 Narrative Exam Narrative: GENERAL: confused, not in any notable distress CARDIOVASCULAR:? regular rate and rhythm, no murmurs RESPIRATORY: clear bilaterally GASTROINTESTINAL: soft, non-tender Objective Labs Result Diagrams: 10/05/21 06:04 10/05/21 06:04 Labs: Laboratory Results - last 24 hr 10/05/21 10/05/21 06:04 06:04 WBC 6.6 RBC 3.62 L Hgb 10.9 L Hct 32.3 L MCV 89.3 MCH 30.1 MCHC 33.6 RDW 13.9 Plt Count 194 Sodium 140 Potassium 3.6 Chloride 109 H Carbon Dioxide 27 BUN 18 Creatinine 0.99 Estimated GFR > 60 BUN/Creatinine Ratio 18.2 Glucose 101 Calcium 7.6 L PFSH Medical History Afib Alzheimer's disease Bilateral nephrolithiasis Bilateral ureteral calculi BPH w urinary obs/LUTS Chronic cough Congestive heart failure COPD (chronic obstructive pulmonary disease) Coronary heart disease Gross hematuria Heart attack History of migraine headaches 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) Hypercholesterolemia Left ureteral calculus MRSA (methicillin resistant Staphylococcus aureus) Renal calculus, right Renal colic on left side Retained ureteral stent Surgical History H/O circumcision H/O vasectomy History of cataract extraction History of coronary artery stent placement History of incision and drainage History of knee replacement (1996) History of knee replacement (1999) History of urologic surgery (06/16/20) Hx of CABG (2010) Hx of cystoscopy (07/20/21) Family History Mother Cancer Sister Cancer Father Coronary artery disease Social History marital status: unmarried,single household members: family occupational status: previously employed Smoking Status: Former smoker alcohol intake: never caffeine: No Assessment & Plan Assessment & Plan narrative: 81M with PMH known foreign body in bladder/urethra and pending outpatient removal of this and stent who presents to the hospital with UTI, encephalopathy. 1. Sepsis with Encephalopathy secondary to UTI/pyelonephritis -sepsis resolved -has multi-drug resitant e. coli -sensitive to bactrim -heart rate improved, stop antibiotics -Urine, blood culture pending -patient to follow-up with [facility] urology for outpatient procedure to remove foreign bodies. -held VTE prophylaxis due to blood +3 in the urine -bladder scan q12 to make sure no urinary retention 2. Mild hyponatremia as evidence by sodium of 132, resolved 3. Chronic AFib, with tachycardia -continue metoprolol 12.5 BID 4. Alzheimer's dementia, acute on chronic, present on admission -continue donepezil 10mg 5. Hypertension, chronic, present on admission -continue metoprolol 12.5 b.i.d. 6. BPH with obstruction, acute on chronic, present on admission -Continue to tamsulosin 0.8 mg nightly. Code status: DNR DNI Surrogate decision maker: Stefania Culver sister Time Spent With Patient Critical Care time: I spent a total of [] minutes of critical care time on this patient's care today; this time is exclusive of procedural time. Quality VTE Deep Vein Thrombosis/Pulmonary Embolism Present on Admission: No
[2021-10-05 18:00] VITALS: BP 106/60; PULSE 81; RESP 20; TEMP 37; O2SAT 99
--- NOTE | 2021-10-05 18:20 | PC.NURSE ---
Pt is AxOx1, calm and cooperative. VSS, pt denies pain. Pt is incontinent of B&B. No BM today. Pt is eating well. Barrier cream applied on bottom and turning pt frequently to prevent ulcer. Pt is now on PO ABO. No other changes. Continue monitor.
[2021-10-05] MEDS: TAMSULOSIN 0.4 MG CAPSULE 0.8 MG PO (20:12)
[2021-10-05] MEDS: TRIMETH/SULFA 160/800 (DS) TABLET 1 TAB PO (20:13)
[2021-10-05] MEDS: ATORVASTATIN 20 MG TABLET PO (20:13)
[2021-10-05 20:27] VITALS: BP 115/62; PULSE 99; RESP 21; TEMP 36.5; O2SAT 99
[2021-10-06] VITALS (8 sets, daily range): BP systolic 100–115; BP diastolic 44–61; PULSE 62–102; RESP 16–19; TEMP 36.1–37.1; O2SAT 93–97
[2021-10-06 08:48] LABS: Acinetobacter baumannii Not Detected (Not Detect); Candida albicans Not Detected (Not Detect); Candida glabrata Not Detected (Not Detect); Candida krusei Not Detected (Not Detect); Candida parapsilosis Not Detected (Not Detect); Candida tropicalis Not Detected (Not Detect); E. coli Detected (Not Detect); Enterobacter cloacae complex Not Detected (Not Detect); Enterobacteriaceae species Detected (Not Detect); Enterococcus species Not Detected (Not Detect); Haemophilus influenzae Not Detected (Not Detect); KPC (carbapenem-resist gene) Not Detected (Not Detect); Listeria monocytogenes Not Detected (Not Detect); Neisseria meningitidis Not Detected (Not Detect); Proteus species Not Detected (Not Detect); Pseudomonas aeruginosa Not Detected (Not Detect); Serratia marcescens Not Detected (Not Detect); Staphylococcus species Not Detected (Not Detect); Streptococcus agalactiae (Gr B Not Detected (Not Detect); Streptococcus pneumonia Not Detected (Not Detect); Streptococcus pyogenes (Gr A) Not Detected (Not Detect); Streptococcus species Not Detected (Not Detect)
[2021-10-06] MEDS: TRIMETH/SULFA 160/800 (DS) TABLET 1 TAB PO (09:54)
[2021-10-06] MEDS: METOPROLOL IR 50 MG TABLET 12.5 MG PO (09:54)
[2021-10-06] MEDS: SODIUM CHLORIDE 0.9% FLUSH 10 ML IV ×2 (09:54→22:21)
--- NOTE | 2021-10-06 10:01 | PC.NURSE ---
IV left wrist not flushing. dc'd with cath intact
--- NOTE | 2021-10-06 12:31 | P.PN_ITS ---
Subjective Subjective Date Patient Seen: 10/06/21 Time Patient Seen: 08:00 Interval history: He remains confused. He is unable to participate in exam but appears in no distress Exam Vital Signs (past 8 hours): - 10/06/21 06:00 10/06/21 07:49 10/06/21 09:50 Temperature 97 F L 97.9 F Pulse Rate 94 H 91 H Respiratory Rate 17 18 Blood Pressure 101/57 L 110/54 L Pulse Oximetry 95 96 Oxygen Delivery Method Room Air Oxygen Flow Rate 0 Oxygen Delivery Method Room Air Oxygen Flow Rate 0 Narrative Exam Narrative: GENERAL: confused, not in any notable distress CARDIOVASCULAR:? regular rate and rhythm, no murmurs RESPIRATORY: clear bilaterally GASTROINTESTINAL: soft, non-tender Objective Labs Result Diagrams: 10/05/21 06:04 10/05/21 06:04 Labs: Laboratory Results - last 24 hr 10/03/21 16:20 A. baumannii (PCR) Not detected Annie albicans (PCR) Not detected C. glabrata (PCR) Not detected C. krusei (PCR) Not detected C. parapsilosis (PCR) Not detected C. tropicalis (PCR) Not detected Enterobacteriac sp PCR Detected H E. cloacae complex PCR Not detected Enterococcus sp PCR Not detected E. coli (PCR) Detected H H. influenzae (PCR) Not detected Klebsiella oxytoca PCR Not detected Klebsiella pneumoniae Not detected List. monocytogenes PCR Not detected N. meningitidis (PCR) Not detected Proteus species (PCR) Not detected Serratia marcescens PCR Not detected Staphylococcus sp PCR Not detected Staph aureus (PCR) Not detected mecA-Methicil Res Gene Not Reportable Streptococcus sp PCR Not detected Group A Strep (PCR) Not detected Strep agalactiae (PCR) Not detected Strep pneumoniae (PCR) Not detected P. 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) Hypercholesterolemia Left ureteral calculus MRSA (methicillin resistant Staphylococcus aureus) Renal calculus, right Renal colic on left side Retained ureteral stent Surgical History H/O circumcision H/O vasectomy History of cataract extraction History of coronary artery stent placement History of incision and drainage History of knee replacement (1996) History of knee replacement (1999) History of urologic surgery (06/16/20) Hx of CABG (2010) Hx of cystoscopy (07/20/21) Family History Mother Cancer Sister Cancer Father Coronary artery disease Social History marital status: unmarried,single household members: family occupational status: previously employed Smoking Status: Former smoker alcohol intake: never caffeine: No Assessment & Plan Assessment & Plan narrative: 81M with PMH known foreign body in bladder/urethra and pending outpatient r emoval of this and stent who presents to the hospital with UTI, encephalopathy. 1. Sepsis with Encephalopathy secondary to UTI/pyelonephritis -sepsis resolved -has multi-drug resitant e. coli -sensitive to bactrim, continue on bactrim until he is able to see urology -Urine, blood culture pending -patient to follow-up with [facility] urology for outpatient procedure to remove foreign bodies. Reportedly has an appoitnment on 10/11 -held VTE prophylaxis due to blood +3 in the urine -bladder scan q12 to make sure no urinary retention 2. Mild hyponatremia as evidence by sodium of 132, resolved 3. Chronic AFib, with tachycardia -continue metoprolol 12.5 BID 4. Alzheimer's dementia, acute on chronic, present on admission -continue donepezil 10mg 5. Hypertension, chronic, present on admission -continue metoprolol 12.5 b.i.d. 6. BPH with obstruction, acute on chronic, present on admission -Continue to tamsulosin 0.8 mg nightly. Dispo: Patient is medically stable for discharge to SNF. He will need to follow up with outpatient urology for stent removal and foregin body removal and urology here at [place] has said this is complex procedure. No available in house urologist at [place] until 10/10 or 10/11. Code status: DNR DNI Surrogate decision maker: Stefania Culver sister Time Spent With Patient Critical Care time: I spent a total of [] minutes of critical care time on this patient's care today; this time is exclusive of procedural time. Quality VTE Deep Vein Thrombosis/Pulmonary Embolism Present on Admission: No
[2021-10-06] MEDS: SULFA IV ×2 (14:59→22:20)
[2021-10-06] MEDS: DEXTROSE 5% IV ×2 (14:59→22:20)
[2021-10-06] MEDS: TRIMETH IV ×2 (14:59→22:20)
[2021-10-06] MEDS: WATER IV ×2 (14:59→22:20)
[2021-10-06] MEDS: METOPROLOL IR 25 MG TABLET 12.5 MG PO (22:20)
[2021-10-06] MEDS: TAMSULOSIN 0.4 MG CAPSULE 0.8 MG PO (22:21)
[2021-10-06] MEDS: ATORVASTATIN 20 MG TABLET PO (22:22)
[2021-10-06] MEDS: OXYCODONE IR 5 MG TABLET PO (22:23)
[2021-10-07 05:16] VITALS: BP 106/52; PULSE 80; RESP 20; TEMP 36.5; O2SAT 96
[2021-10-07 05:31] LABS: Hematocrit 31.9 % (41-53); Hemoglobin 10.9 g/dL (13.5-17.5); Mean Corpuscular HGB Conc 34.1 % (30-36); Mean Corpuscular Hemoglobin 30.1 PG (26-34); Mean Corpuscular Volume 88.2 fL (80-100); Platelet Count 230 X10^3/uL (150-400); Red Blood Cell Count 3.62 X10^6/uL (4.5-5.9); Red Cell Distribution Width 14.2 % (11.6-14.8); White Blood Cell Count 6.5 X10^3/uL (4.5-11.0)
[2021-10-07 05:37] LABS: BUN Creatinine Ratio 18.8 (6-22); Blood Urea Nitrogen 16 mg/dL (9-20); Calcium 7.8 mg/dL (8.4-10.2); Carbon Dioxide 24 mmol/L (22-32); Chloride 103 mmol/L (98-107); Estimated Glomerular Filt Rate > 60 mL/min (>60); Glucose 91 mg/dL (80-110); HEMOLYSIS < 15 (0-50); Potassium 3.6 mmol/L (3.4-5.1); Sodium 133 mmol/L (137-145)
[2021-10-07 07:46] VITALS: BP 103/53; PULSE 98; RESP 14; TEMP 36.4; O2SAT 94
[2021-10-07] MEDS: SODIUM CHLORIDE 0.9% FLUSH 10 ML IV (08:46)
[2021-10-07] MEDS: WATER IV ×3 (08:46→22:58)
[2021-10-07] MEDS: DEXTROSE 5% IV ×3 (08:46→22:58)
[2021-10-07] MEDS: SULFA IV ×3 (08:46→22:58)
[2021-10-07] MEDS: TRIMETH IV ×3 (08:46→22:58)
[2021-10-07] MEDS: METOPROLOL IR 25 MG TABLET 12.5 MG PO ×2 (08:48→19:59)
--- NOTE | 2021-10-07 09:02 | PM.PN.1 ---
Subjective Subjective Date Patient Seen: 10/07/21 Time Patient Seen: 08:00 Interval history: He remains confused. He is unable to participate in exam but appears in no distress. Exam Vital Signs (past 8 hours): - 10/07/21 05:16 10/07/21 07:46 Temperature 97.7 F 97.6 F Pulse Rate 80 98 H Respiratory Rate 20 14 Blood Pressure 106/52 L 103/53 L Pulse Oximetry 96 94 Oxygen Flow Rate 0 0 Oxygen Delivery Method Room Air Oxygen Flow Rate 0 Narrative Exam Narrative: General:? Patient is well developed and well nourished, in no distress at this time. HEENT:? Normocephalic, atraumatic, extraocular muscles intact, oral pharynx is clear and mucous membranes are moist. Neck: supple and symmetric, trachea is midline, no cervical adenopathy. Negative for JVD Chest:? Normal AP diameter and contour without kyphoscoliosis, no tachypnea, equal chest rise bilaterally. Lungs:? CTA b/l no wheezing rhonchi or rales. Cardio:?RRR no m/r/g. Abdomen: S NT ND. No CVA tenderness. Musculoskeletal:? Muscle strength and tone are equal within normal limits, no deformity. Extremities: No edema or joint effusions. No cyanosis or clubbing. Skin:? Pale,? Warm to touch,dry and intact without rashes, ulcerations or petechiae.? Neuro:? Alert and orientated x3,? sensation to touch intact in all extremities, no gross deficits noted of cranial nerves. Psych:? Patient has a well-kept appearance, appropriate affect, mental status attitude thought context and judgment are appropriate for age. Objective Labs Result Diagrams: 10/07/21 05:00 10/07/21 05:00 Labs: Laboratory Results - last 24 hr 10/07/21 10/07/21 05:00 05:00 WBC 6.5 RBC 3.62 L Hgb 10.9 L Hct 31.9 L MCV 88.2 MCH 30.1 MCHC 34.1 RDW 14.2 Plt Count 230 Sodium 133 L Potassium 3.6 Chloride 103 Carbon Dioxide 24 BUN 16 Creatinine 0.85 Estimated GFR > 60 BUN/Creatinine Ratio 18.8 Glucose 91 Calcium 7.8 L [facility] Medical History Afib Alzheimer's disease Bilateral nephrolithiasis Bilateral ureteral calculi BPH w urinary obs/LUTS Chronic cough Congestive heart failure COPD (chronic obstructive pulmonary disease) Coronary heart disease Gross hematuria Heart attack History of migraine headaches 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) Hypercholesterolemia Left ureteral calculus MRSA (methicillin resistant Staphylococcus aureus) Renal calculus, right Renal colic on left side Retained ureteral stent Surgical History H/O circumcision H/O vasectomy History of cataract extraction History of coronary artery stent placement History of incision and drainage History of knee replacement (1996) History of knee replacement (1999) History of urologic surgery (06/16/20) Hx of CABG (2010) Hx of cystoscopy (07/20/21) Family History Mother Cancer Sister Cancer Father Coronary artery disease Social History marital status: unmarried,single household members: family occupational status: previously employed Smoking Status: Former smoker alcohol intake: never caffeine: No Assessment & Plan Assessment & Plan narrative: 81M with PMH known foreign body in bladder/urethra and pending outpatient removal of this and stent who presents to the hospital with UTI, encephalopathy. 1. Sepsis with Encephalopathy secondary to UTI/pyelonephritis/bacteremia -sepsis resolved -has multi-drug resistant e. coli -sensitive to bactrim, continue on bactrim until he is able to see urology for foreign body removal on 10/11 at -Blood cultures grew 1/4 E. coli, sensitivities pending -Plan to dc on po bactrim if 2nd set of blood cultures negative at 48 hours -bladder scan q12 to make sure no urinary retention 2. Mild hyponatremia as evidence by sodium of 132, resolved 3. Chronic AFib, with tachycardia -continue metoprolol 12.5 BID 4. Alzheimer's dementia, acute on chronic, present on admission -continue donepezil 10mg 5. Hypertension, chronic, present on admission -continue metoprolol 12.5 b.i.d. 6. BPH with obstruction, acute on chronic, present on admission -Continue to tamsulosin 0.8 mg nightly. Dispo: Patient is medically stable for discharge to SNF. He will need to follow up with outpatient urology for stent removal and foregin body removal and urology here at [place] has said this is complex procedure. No available in house urologist at [place] until 10/10 or 10/11. Code status: DNR DNI Surrogate decision maker: Stefania shah Time Spent With Patient Critical Care time: I spent a total of [] minutes of critical care time on this patient's care today; this time is exclusive of procedural time. Quality VTE Deep Vein Thrombosis/Pulmonary Embolism Present on Admission: No
--- NOTE | 2021-10-07 09:31 | CM.DPC ---
DCP Cont: Per MD, pt is not ready to be discharged today. Per MD, awaiting on 48 hour blood cultures to return to send him home on PO bactrim. Pt currently on IV bactrim. Called [facility] to inform as pt had a picker tender time of 12:00 today. [facility] aware and will cancel transport today. DCP to continue to follow. Nerissa Hernandez RN/DCP
[2021-10-07] MEDS: SODIUM CHLORIDE 0.9% 1,000 ML 125 ML IV ×2 (10:49→19:58)
[2021-10-07 11:00] VITALS: BP 93/56; PULSE 87; RESP 18; TEMP 36.6; O2SAT 99
[2021-10-07] MEDS: HEPARIN 5,000 UNIT/ML VIAL 5000 UNIT SUBCUT ×2 (13:25→21:41)
[2021-10-07 15:00] VITALS: BP 103/64; PULSE 97; RESP 16; TEMP 36.3; O2SAT 98
[2021-10-07] MEDS: TAMSULOSIN 0.4 MG CAPSULE 0.8 MG PO (19:58)
[2021-10-07] MEDS: ATORVASTATIN 20 MG TABLET PO (19:59)
[2021-10-07] MEDS: DONEPEZIL 5 MG TABLET 10 MG PO (20:16)
[2021-10-07 20:31] VITALS: BP 113/48; PULSE 114; RESP 17; TEMP 36.6; O2SAT 95
--- NOTE | 2021-10-07 21:19 | PC.NURSE ---
Addendum entered by Melanie Rome R.N. 10/08/21 03:29: Patient has been having persistent, intermittent dry cough. However, when patient was being repositioned earlier he sounded more congested and coughed up 1-2tsp coffee ground liquid. Has had no further emesis and seems to be coughing less at this time. Harry PRO, informed of this information as well as about reddened scrotum, groins and inner/upper thighs and that he has not had a BM recently. States she will put in new orders. Original Note: Patient is oriented only to self and birthdate and responses are slow. Breath sounds with inspiratory crackles bilateral bases with RA sat of 95%. HR irregular; telemetry reading was afib CVR. Denied nausea. BT present and abdomen is soft; has not had BM since prior to admission on 10/03 so will check with [facility] re: bowel medication. Incontinent of urine. Does not move himself so is being repositioned q2h. Bilateral groins and scrotum bright red. Has pressure area on coccyx and has allevyn dressing to area which is CDI. Bilateral calf SCD's applied at time of assessment. Denied pain. Fall risk score is high and bed alarm is activated.
[2021-10-08 00:33] VITALS: BP 108/61; PULSE 94; RESP 16; TEMP 36.8; O2SAT 97
[2021-10-08 04:47] VITALS: BP 117/66; PULSE 98; RESP 18; TEMP 36.4; O2SAT 94
[2021-10-08] MEDS: HEPARIN 5,000 UNIT/ML VIAL 5000 UNIT SUBCUT ×3 (05:36→20:28)
[2021-10-08] MEDS: SODIUM CHLORIDE 0.9% 1,000 ML 125 ML IV ×2 (05:36→19:29)
[2021-10-08 05:57] LABS: BUN Creatinine Ratio 16.5 (6-22); Blood Urea Nitrogen 15 mg/dL (9-20); Calcium 7.5 mg/dL (8.4-10.2); Carbon Dioxide 22 mmol/L (22-32); Chloride 102 mmol/L (98-107); Estimated Glomerular Filt Rate > 60 mL/min (>60); Glucose 92 mg/dL (80-110); HEMOLYSIS < 15 (0-50); Potassium 3.7 mmol/L (3.4-5.1); Sodium 131 mmol/L (137-145)
[2021-10-08] MEDS: SULFA IV ×3 (06:51→23:03)
[2021-10-08] MEDS: WATER IV ×3 (06:51→23:03)
[2021-10-08] MEDS: TRIMETH IV ×3 (06:51→23:03)
[2021-10-08] MEDS: DEXTROSE 5% IV ×3 (06:51→23:03)
[2021-10-08 08:00] VITALS: BP 112/62; PULSE 97; RESP 20; TEMP 36.6; O2SAT 98
--- NOTE | 2021-10-08 08:31 | PM.PN.1 ---
Subjective Subjective Date Patient Seen: 10/08/21 Time Patient Seen: 12:00 Interval history: He remains confused. He is unable to participate in exam but appears in no distress. Exam Vital Signs (past 8 hours): - 10/08/21 00:33 10/08/21 04:47 10/08/21 04:47 Temperature 98.3 F 97.5 F L Pulse Rate 94 H 98 H Respiratory Rate 16 18 Blood Pressure 108/61 117/66 Pulse Oximetry 97 94 Oxygen Flow Rate 0 Oxygen Delivery Method Room Air Oxygen Flow Rate 0 Narrative Exam Narrative: General:? Patient is well developed and well nourished, in no distress at this time. HEENT:? Normocephalic, atraumatic, extraocular muscles intact, oral pharynx is clear and mucous membranes are moist. Neck: supple and symmetric, trachea is midline, no cervical adenopathy. Negative for JVD Chest:? Normal AP diameter and contour without kyphoscoliosis, no tachypnea, equal chest rise bilaterally. Lungs:? CTA b/l no wheezing rhonchi or rales. Cardio:?RRR no m/r/g. Abdomen: S NT ND. No CVA tenderness. Musculoskeletal:? Muscle strength and tone are equal within normal limits, no deformity. Extremities: No edema or joint effusions. No cyanosis or clubbing. Skin:? Pale,? Warm to touch,dry and intact without rashes, ulcerations or petechiae.? Neuro:? Alert and orientated x3,? sensation to touch intact in all extremities, no gross deficits noted of cranial nerves. Psych:? Patient has a well-kept appearance, demented. 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) Hypercholesterolemia Left ureteral calculus MRSA (methicillin resistant Staphylococcus aureus) Renal calculus, right Renal colic on left side Retained ureteral stent Surgical History H/O circumcision H/O vasectomy History of cataract extraction History of coronary artery stent placement History of incision and drainage History of knee replacement (1996) History of knee replacement (1999) History of urologic surgery (06/16/20) Hx of CABG (2010) Hx of cystoscopy (07/20/21) Family History Mother Cancer Sister Cancer Father Coronary artery disease Social History marital status: unmarried,single household members: family occupational status: previously employed Smoking Status: Former smoker alcohol intake: never caffeine: No Assessment & Plan Assessment & Plan narrative: 81M with PMH known foreign body in bladder/urethra and pending outpatient removal of this and stent who presents to the hospital with UTI, encephalopathy. 1. Sepsis with Encephalopathy secondary to UTI/pyelonephritis/bacteremia -sepsis resolved -has multi-drug resistant e. coli, [facility] following -sensitive to bactrim, continue on bactrim until he is able to see urology for foreign body removal on 10/11 at -Blood cultures grew 1/4 E. coli, sensitivities pending -Plan to dc on po bactrim if 2nd set of blood cultures negative at 48 hours -bladder scan q12 to make sure no urinary retention 2. Mild hyponatremia as evidence by sodium of 132, resolved 3. Chronic AFib, with tachycardia -continue metoprolol 12.5 BID 4. Alzheimer's dementia, acute on chronic, present on admission -continue donepezil 10mg 5. Hypertension, chronic, present on admission -continue metoprolol 12.5 b.i.d. 6. BPH with obstruction, acute on chronic, present on admission -Continue to tamsulosin 0.8 mg nightly. Dispo: Patient is medically stable for discharge to SNF. He will need to follow up with outpatient urology for stent removal and foregin body removal and urology here at [place] has said this is complex procedure. No available in house urologist at [place] until 10/10 or 10/11. Code status: DNR DNI Surrogate decision maker: Stefania Culver sister Time Spent With Patient Critical Care time: I spent a total of [] minutes of critical care time on this patient's care today; this time is exclusive of procedural time. Quality VTE Deep Vein Thrombosis/Pulmonary Embolism Present on Admission: No
--- NOTE | 2021-10-08 09:30 | PC.NURSE ---
Assess- Patient is alert but disoriented x3, he was incontinent of a large amount of urine, his testicles, groin, and penis are all red with fungal areas. Applied Nystatin cream to area's and new brief put on patient. He has a stage two ulcer on his left bottom cheek with some excoriation between his bottom. Cream applied to area's. Patient denies pain. He does have a bit of a wet cough but is non productive at this point. Urine culture back with Ecoli that is CRE, is aware of this. Patient is lying on his l.side and is being repostioned every 2 hours.
[2021-10-08] MEDS: SENNOSIDES 8.6 MG TABLET 17.2 MG PO ×2 (09:46→20:28)
[2021-10-08] MEDS: METOPROLOL IR 25 MG TABLET 12.5 MG PO ×2 (09:47→20:27)
[2021-10-08] MEDS: NYSTATIN CREAM 30 GM 1 APPLIC TOP ×2 (09:47→20:28)
[2021-10-08] MEDS: SODIUM CHLORIDE 0.9% FLUSH 10 ML IV ×2 (09:47→20:28)
[2021-10-08 12:00] VITALS: BP 123/78; PULSE 104; RESP 20; TEMP 35.8; O2SAT 96
--- NOTE | 2021-10-08 14:36 | CM.DPC ---
DCP Cont: Per MD, awaiting final 48 hour growth results of pt's cultures to confirm recommendation from ID MD Dr. Foreman regarding abx for d/c as pt quite resistant to multiple medications. Dr. Foreman has concerns with pt returning to SNF on Bactrum as due to pt's age and cormorbidities pt high risk for organ failure/expiration. Dr. Foreman recommendation is either oral Bactrum with daily BNP drawn and read daily vs change to abx Avycaz. PARADISE called [facility] admissions and confirmed pt was last admitted to [facility] in August 2021 this year and discharged home with sister/DPOA and new [facility] referral as pt was OBS status and no accepting SNF under COVID waiver as pt did not have a skillable need under COVID waiver and could not private pay. Pt ended up returning to [place] ED and was able to get into [facility] from the homer. SW updated [facility] on above and they ran the Avycaz and $1300 daily cost and therefore they cannot accommodate that medication. [facility] confirms they can have daily BNP labs drawn by their mobile provider [facility] but typically the results are next day but they would be willing to draw the labs and take to the [facility] lab to be run for same day results. [facility] has a PA in house 3 days a week and MD once a week and the rest of the days an RN with an on-call Provider. PARADISE updated MD who is consulting with ID MD Dr. Foreman towards determining if she is agreeable with d/c plan and following. [facility] confirms pt will need updated COVID swab and latest they can accept today is 1530. PARADISE updated independent living specialist and RN. Plan: SW following closely for final determination on discharge from MD and ID MD if pt to d/c to [facility] today or tomorrow and if ID MD agreeable with discharge plan for following the Bactrum. MAHNAZ Briones
[2021-10-08 15:35] VITALS: BP 131/79; PULSE 117; RESP 16; TEMP 36.7; O2SAT 97
--- NOTE | 2021-10-08 18:09 | PC.NURSE ---
Addendum entered by Phyllis Silverman R.N. 10/08/21 18:43: Per Patients sister, he does have a chronic cough that seems to come and go. He is still coughing every once in a while but is not coughing anything up. Sister visiting now. Original Note: Assess-Patient has been repositioned every couple of hours and is now facing the door on his right side. Incontinent of urine x3, large amounts with infectious odor. Patients groin and testicles red, nystatin cream applied to areas. Patients first bladder scan after being wet was 389. He was wet a couple of hours later and bladder scan was 190s. He was just changed for a third time, incontinent of another large void and this time bladder scan was 9. is aware of the high bladder scan. He denies pain and took his medications without any difficulty earlier. He is alert and disoriented x4. He is pleasant and helps move when moving side to side. Patient has a stage 2 ulcer on his left butt cheek. This was seen by the wound RN and she gave this RN some cream to apply to area and leave open to air at this time. He is resting comfortably.
[2021-10-08 20:11] VITALS: BP 114/72; PULSE 124; RESP 18; TEMP 37.3; O2SAT 96
[2021-10-08] MEDS: TAMSULOSIN 0.4 MG CAPSULE 0.8 MG PO (20:27)
[2021-10-08] MEDS: DONEPEZIL 5 MG TABLET 10 MG PO (20:28)
[2021-10-08] MEDS: ATORVASTATIN 20 MG TABLET PO (20:28)
--- NOTE | 2021-10-08 21:49 | PC.NURSE ---
Patient only able to state his name tonight. Other questions asked produce a delay in response and flat look. Breath sounds diminished but CTA with RA sat of 96% although patient taking shallow respirations. Continues to have dry, frequent, persistent cough. HR irregular w/telemetry reading of afib RVR rate of 118. BT hypoactive and patient still has not had a BM; started today on Senna. Voids incontinent and has very reddened penis, scrotum, groins and upper/inner thighs to which Nystatin cream is being applied BID. Is needing to be repositioned q2h as not able to move himself. Gait not assessed at this time. Wearing bilateral calf SCD's. Remains on contact isolation due to MDRO in urine. Denied pain when asked. Fall risk score is high and bed alarm is activated.
[2021-10-09] VITALS: BP 108/50; PULSE 112; RESP 18; TEMP 36.9; O2SAT 96
[2021-10-09 04:00] VITALS: BP 100/59; PULSE 99; RESP 18; TEMP 37.3; O2SAT 95
[2021-10-09] MEDS: SODIUM CHLORIDE 0.9% 1,000 ML 125 ML IV (04:31)
[2021-10-09 05:49] LABS: Blood Urea Nitrogen 13 mg/dL (9-20); Calcium 7.6 mg/dL (8.4-10.2); Carbon Dioxide 21 mmol/L (22-32); Chloride 106 mmol/L (98-107); Estimated Glomerular Filt Rate > 60 mL/min (>60); Glucose 92 mg/dL (80-110); HEMOLYSIS < 15 (0-50); Potassium 3.7 mmol/L (3.4-5.1); Sodium 131 mmol/L (137-145)
[2021-10-09] MEDS: HEPARIN 5,000 UNIT/ML VIAL 5000 UNIT SUBCUT (06:02)
--- NOTE | 2021-10-09 07:26 | PM.DS.1 ---
History of Present Illness History of Present Illness Date Patient Seen: 10/09/21 Time Patient Seen: 13:40 Chief complaint: Abnormal labs Narrative: Rodolfo Hawthorne is a 81-year-old male with a history of Alzheimer's, AFib on anticoagulation, CHF, COPD, CAD, bilateral nephrolithiasis, and bilateral ureteral calculi, BPH with urinary obstructionwho was?sent to the ED skilled nursing for evaluation of altered mental status and possible sepsis. Patient is DNR DNI with selective treatment.? Patient was seen 2 weeks ago for evaluation of a stuck guidewire from mouth left ureteral stent that was placed here.? Katz catheter was attempted to be removed by skilled nursing staff however the guidewire came out with it.? The extended guidewire was cut at the meatus to prevent any injury.? Patient had long stay here in the emergency department and unable to transfer in the facilities for further treatment.? [facility] urology was consulted and Dr. Perez. ED Consult Dr. Mcfarlane [id number]: Spoke with [facility] urologist dr boland, she has reviewed laboratory studies as well as imaging from [facility].? No indication or need for transferring patient.? She states she has looked up medical records and Dr. Ceballos with their group had teleconference with patient a week ago and plan states the same for outpatient treatment for procedures.? Laboratory studies and patient is voiding and imaging is stable, patient can be admitted here for antibiotic treatment for UTI and to continue antibiotics until his procedure to prevent recurrence of UTI, for FB removal from urethra and bladder.? Upon admit patient is boarding in the ED and is pleasantly confused but and able to communicate beyond stating that he denies any pain.? Patient's vitals upon admit temp 98.2?, BP 129/67, HR 110, RR 28, O2 saturation 97% on room air, BMI 29.5.? Patient is currently in AFib rate controlled 110.? HGB 12.2, HCT 36, sodium 132, chloride 97, BUN 33, glucose 114, RBC 4.05, albumin 3.2, procalcitonin 1.68, UA is positive for protein blood nitrates bacteria many, and RBC >100.? Urine is sent for culture.? Head CT demonstrated no acute abnormalities.? CT the abdomen pelvis demonstrated diverticulosis, cholelithiasis,??nephrolithiasis bilaterally,?with 2 ureteral stent on the left and a single stent on the left.? Trace renal pelviectasis and perinephric stranding bilaterally. Mild bladder wall thickening.? No bladder stones.? There is a wire within the bladder and urethra.? Patient admitted for encephalopathy secondary to UTI, and foreign bodies in the urethra and bladder. Discharge Providers Provider Date of admission: 10/03/21 21:41 Discharge Date: 10/09/21 Primary care physician: Sol Leroy MD Consults: 10/04/21 12:08 Consult to Dietitian, Adult Routine Comment: 13 Reason For Exam: low jose score 10/09/21 02:47 Consult to Inpatient Wound Care Nurse Routine Comment: Reason for consultation: reddened penis, scrotum, groins & reddened/open skin on inner upper thighs Discharge provider: Bismark Garza DO Summary Hospital Course Hospital Course: Patient admitted for sepsis secondary to urinary tract infection. His urine grew multidrug resistant E coli sensitive only to Bactrim, gentamicin and Macrobid. Infectious Disease at [facility] was consulted who recommended treating with oral Bactrim only if daily BMPs could be checked with same-day results. [facility] was contacted who assured they could could run the lab over to [facility] each day. These results will then be called in to myself, Dr. Garza at my cell phone [phone] to ensure his creatinine and potassium are rising. Patient will have urological procedure at on 10/11 to remove stuck guidewire in his urethra. Patient should have contact precautions secondary to multidrug resistant E coli. Exam Vital Signs (past 8 hours): - 10/09/21 00:00 10/09/21 04:00 Temperature 98.4 F 99.1 F Pulse Rate 112 H 99 H Respiratory Rate 18 18 Blood Pressure 108/50 L 100/59 L Pulse Oximetry 96 95 Oxygen Flow Rate 0 0 Oxygen Delivery Method Room Air Oxygen Flow Rate 0 Narrative Exam Narrative: General:? Patient is well developed and well nourished, in no distress at this time. HEENT:? Normocephalic, atraumatic, extraocular muscles intact, oral pharynx is clear and mucous membranes are moist. Neck: supple and symmetric, trachea is midline, no cervical adenopathy. Negative for JVD Chest:? Normal AP diameter and contour without kyphoscoliosis, no tachypnea, equal chest rise bilaterally. Lungs:? CTA b/l no wheezing rhonchi or rales. Cardio:?RRR no m/r/g. Abdomen: S NT ND. No CVA tenderness. Musculoskeletal:? Muscle strength and tone are equal within normal limits, no deformity. Extremities: No edema or joint effusions. No cyanosis or clubbing. Skin:? Pale,? Warm to touch,dry and intact without rashes, ulcerations or petechiae.? Neuro:? Alert and orientated x3,? sensation to touch intact in all extremities, no gross deficits noted of cranial nerves. Psych:? Patient has a well-kept appearance, demented. 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) Hypercholesterolemia Left ureteral calculus MRSA (methicillin resistant Staphylococcus aureus) Renal calculus, right Renal colic on left side Retained ureteral stent Surgical History H/O circumcision H/O vasectomy History of cataract extraction History of coronary artery stent placement History of incision and drainage History of knee replacement (1996) History of knee replacement (1999) History of urologic surgery (06/16/20) Hx of CABG (2010) Hx of cystoscopy (07/20/21) Family History Mother Cancer Sister Cancer Father Coronary artery disease Social History marital status: unmarried,single household members: family occupational status: previously employed Smoking Status: Former smoker alcohol intake: never caffeine: No Discharge Assessment & Plan Assessment and Plan Assessment: 1. Sepsis with Encephalopathy secondary to UTI/pyelonephritis/bacteremia -sepsis resolved -has multi-drug resistant e. coli, [facility] ID following -sensitive to bactrim, continue on oral bactrim until 10/20 -[facility] agreed to have daily BMP's run over to [facility] lab for same-day results, which will then be relayed to myself Dr. Garza at [phone] until 10/20 to ensure his Cr and K aren't rising -has urology appt for foreign body removal on 10/11 at -Blood cultures grew 1/4 E. coli, sensitive to bactrim also. ID comfortable treating with oral Bactrim given only 1/4 bottles indicating possible transient bacteremia -[facility] ID elected given SNF unable to afford IV meropenem or Avycaz, discharge on oral bactrim for 2 weeks with daily BMP's 2. Mild hyponatremia as evidence by sodium of 132, resolved 3. Chronic AFib, with tachycardia -continue metoprolol 12.5 BID 4. Alzheimer's dementia, acute on chronic, present on admission -continue donepezil 10mg 5. Hypertension, chronic, present on admission -continue metoprolol 12.5 b.i.d. 6. BPH with obstruction, acute on chronic, present on admission -Continue to tamsulosin 0.8 mg nightly. Dispo: Patient is medically stable for discharge to [facility]. He will need to follow up with outpatient urology for stent removal and foregin body removal and urology here at [place] has said this is complex procedure. No available in house urologist at [place] until 10/10 or 10/11. Code status:? DNR DNI Surrogate decision maker: Stefania Culver sister Discharge Plan Discharge Plan Patient Disposition: [facility] Transfer to: [facility] Provider Discharge Comment: Patient will be high risk for renal failure and hyperkalemia which may cause while on oral bactrim for the next 12 days. Please obtain a daily BMP with SAME DAY results and have the lab call me with the results at [phone] -Dr. Garza Discharge orders & Medications Prescriptions: New sulfamethoxazole-trimethoprim 800-160 mg Tablet 1 tab PO BID 12 Days Qty: 24 0RF Continued metoprolol tartrate 50 mg Tablet 12.5 mg PO BID oxycodone 5 mg tablet 5 mg PO Q4H PRN (Reason: pain) Qty: 10 0RF tamsulosin [Flomax] 0.4 mg capsule 0.8 mg PO BEDTIME atorvastatin [Lipitor] 20 mg tablet 20 mg PO DAILY donepezil 10 mg tablet 10 mg PO QPM Advair HFA 230-21 mcg/actuation HFA aerosol inhaler 2 puff inhalation BID PRN (Reason: Cough) multivitamin [Daily Multi-Vitamin] Tablet 1 tab PO DAILY aspirin 81 mg tablet,chewable 81 mg PO DAILY calcium carbonate-vitamin D3 500mg (1,250mg) -600 unit tablet 1 tab PO DAILY Follow up/Referrals: Sol Leroy MD [Primary Care Provider] - Other Ambulatory Orders: Basic Metabolic Panel (Urgent) Timeframe: 11 Day Facility: [facility] - Location: Laboratory Ordered By: Bismark Garza Discharge Health Status Multidrug resistant organism: Other Precautions: Contact Diet/Activity/Treatments Diet: Diet as Tolerated Discharge Data Primary Care Provider: Sol Leroy Quality VTE Deep Vein Thrombosis/Pulmonary Embolism Present on Admission: No
[2021-10-09 08:00] VITALS: BP 105/66; PULSE 101; RESP 22; TEMP 36.4; O2SAT 99
--- NOTE | 2021-10-09 09:27 | PC.RNWOUND ---
Patient has loose stool incontinence, turns side to side with assist for clean up by STATISTICS MANAGER and wound nurse. Allevyn dressing removed, soiled, left off for now while patient having loose stools. 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 Patient's groin and scrotum still reddened, exposed to urine and stool. Primary RN is requesting nystatin powder instead of cream from physician. STATISTICS MANAGER plans to leave attends open/loose to groin/perineum to prevent urine/stool from being against skin. Barrier cream is applied to scrotum, groin, perineum, gluteal area. Patient tolerates cares well, STATISTICS MANAGER continues with bed bath for patient.
[2021-10-09] MEDS: NYSTATIN POWDER 15GM 1 APPLIC TOP (09:45)
[2021-10-09] MEDS: METOPROLOL IR 25 MG TABLET 12.5 MG PO (09:45)
[2021-10-09 11:53] VITALS: BP 99/53; PULSE 104; RESP 22; TEMP 36.7; O2SAT 98
[2021-10-09 12:37] VITALS: BP 95/50; PULSE 88
[2021-10-09] MEDS: TRIMETH/SULFA 160/800 (DS) TABLET 1 TAB PO (12:58)
[2021-10-09 13:30] LABS: COVID19 -Nasal RAPID Negative (Negative)
--- NOTE | 2021-10-09 13:35 | CM.DPC ---
Discharge Planning Note: Met with patient and his sister Stefania CulverJUSTUS and explained discharge for today. Spoke with Sharon at [facility] for discharge preparation. Preparing patient for discharge. Medlist has been signed and faxed. Nurse has obtained Covid swab. BLS will be here at 3pm to transport patient to [facility]. Patient is returning to [facility] where he previously was prior to this hospital admission. He has an outpatient appointment with urology for urinary stent removal, etc. Urvashi Santos RN/ARTISP
== END 2021-10-09 14:00 | DRG 698 ==
LOC: ED 19:12 → AC 10-04 08:59
PROVIDERS: Emergency Medicine; Internal Medicine; Student in an Organized Health Care Education/Training Program; Admitting Provider Nurse Practitioner Family; Emergency Provider Emergency Medicine; Family Provider Student in an Organized Health Care Education/Training Program; PCP Family Medicine; Referring Provider Emergency Medicine; Visit Provider Nurse Practitioner Family
DX: T83.592A Infection and inflammatory reaction due to indwelling ureteral stent, initial encounter (principal); G93.41 Metabolic encephalopathy; A41.9 Sepsis, unspecified organism; R65.20 Severe sepsis without septic shock; N39.0 Urinary tract infection, site not specified; E87.1 Hypo-osmolality and hyponatremia; I48.20 Chronic atrial fibrillation, unspecified; Z16.24 Resistance to multiple antibiotics; N13.8 Other obstructive and reflux uropathy; T83.511A Infection and inflammatory reaction due to indwelling urethral catheter, initial encounter; G30.9 Alzheimer's disease, unspecified; F02.80 Dementia in other diseases classified elsewhere, unspecified severity, without behavioral disturbance, psychotic disturbance, mood disturbance, and anxiety; B96.20 Unspecified Escherichia coli [E. coli] as the cause of diseases classified elsewhere; L89.322 Pressure ulcer of left buttock, stage 2; L89.312 Pressure ulcer of right buttock, stage 2; I10 Essential (primary) hypertension; N40.1 Benign prostatic hyperplasia with lower urinary tract symptoms; I25.10 Atherosclerotic heart disease of native coronary artery without angina pectoris; Z95.1 Presence of aortocoronary bypass graft; Z87.891 Personal history of nicotine dependence; Z20.822 Contact with and (suspected) exposure to COVID-19; Z79.01 Long term (current) use of anticoagulants; Z66 Do not resuscitate; Z95.5 Presence of coronary angioplasty implant and graft
CPT/HCPCS: 36415; 70450; 74176; 80048; 80053; 81001; 82550; 83605; 83735; 84145; 84484; 85025; 85027; 87040; 87077; 87086; 87150; 87186; 87635; 93005; 93010; 96365; 96366; 96375; 99284; C9803; J1644; J2543; S0039

== ENCOUNTER → 2021-10-10 11:39 | Outpatient (ROUT) | payer MEDICARE, BC, SELFPAY ==
[2021-10-04 06:57] VITALS: BMI 26.9
[2021-10-10 11:56] LABS: BUN Creatinine Ratio 11.8 (6-22); Blood Urea Nitrogen 12 mg/dL (9-20); Calcium 8.1 mg/dL (8.4-10.2); Carbon Dioxide 26 mmol/L (22-32); Chloride 101 mmol/L (98-107); Estimated Glomerular Filt Rate > 60 mL/min (>60); Glucose 92 mg/dL (80-110); HEMOLYSIS < 15 (0-50); Potassium 4.4 mmol/L (3.4-5.1); Sodium 132 mmol/L (137-145)
== END ==
PROVIDERS: Family Provider Student in an Organized Health Care Education/Training Program; PCP Family Medicine; Visit Provider Student in an Organized Health Care Education/Training Program
DX: Z79.899 Other long term (current) drug therapy (principal)
CPT/HCPCS: 80048

== ENCOUNTER → 2021-10-19 13:18 | Outpatient (ROUT) | payer MEDICARE, BC, SELFPAY ==
[2021-10-04 06:57] VITALS: BMI 26.9
[2021-10-19 13:29] LABS: Add Manual Diff / Slide Review NO; Basophils Absolute Auto 100 /uL (0-100); Basophils Percent Auto 1.5 % (0-2); Eosinophils Absolute Auto 100 /uL (0-450); Eosinophils Percent Auto 2.5 % (2-4); Hematocrit 31.3 % (41-53); Hemoglobin 10.5 g/dL (13.5-17.5); Lymphocytes Absolute Auto 1500 /uL (1100-4500); Lymphocytes Percent Auto 27.4 % (25-40); Mean Corpuscular HGB Conc 33.6 % (30-36); Mean Corpuscular Hemoglobin 29.7 PG (26-34); Mean Corpuscular Volume 88.4 fL (80-100); Monocytes Absolute Auto 500 /uL (0-900); Monocytes Percent Auto 9.6 % (3-14); Neutrophils Absolute Auto 3100 /uL (1500-7000); Platelet Count 213 X10^3/uL (150-400); Red Blood Cell Count 3.54 X10^6/uL (4.5-5.9); Red Cell Distribution Width 14.5 % (11.6-14.8); White Blood Cell Count 5.3 X10^3/uL (4.5-11.0)
[2021-10-19 13:34] LABS: Alanine Aminotransferase 13 IU/L (<50); Albumin 2.6 g/dL (3.5-5.0); Albumin Globulin Ratio 0.9 (1.0-2.8); Alkaline Phosphatase 105 U/L (38-126); Aspartate Aminotransferase 30 IU/L (17-59); BUN Creatinine Ratio 13.2 (6-22); Bilirubin Total 1.3 mg/dL (0.2-1.3); Blood Urea Nitrogen 9 mg/dL (9-20); Carbon Dioxide 27 mmol/L (22-32); Chloride 104 mmol/L (98-107); Estimated Glomerular Filt Rate > 60 mL/min (>60); Glucose 84 mg/dL (80-110); HEMOLYSIS 20 (0-50); Sodium 135 mmol/L (137-145); Total Protein 5.6 g/dL (6.3-8.2)
== END ==
PROVIDERS: Internal Medicine Infectious Disease; Family Provider Student in an Organized Health Care Education/Training Program; PCP Family Medicine
DX: Z03.6 Encounter for observation for suspected toxic effect from ingested substance ruled out (principal)
CPT/HCPCS: 80053; 85025